=== PATIENT | male | born 1945 | race Caucasian/White ===

== ENCOUNTER 2016-11-15 08:31 | Inpatient (IN) | payer OTHER ==
[~2016-11-15] VITALS: Ht 182.9 cm; Wt 71.7 kg
[~2016-11-15 08:31] MED LIST: ACET325T96 PO; ASPCH81X PO; BACI500O11 TOP; BISA10SU7 PR; GLGKIT IM; HMLI SC; INSDGI SC; IPRASOL4 INH; LPR25 PO; MAGNSUS5 PO; MIRT45TA PO; MULT-411 PO; MUPI1CRE TOP; NTRGSL/4 UT; NUTR1POW PO; PANT40TA PO; PRAV40TA2 PO; PROM25SU28 PR; SODIENE PR; STOMAHESIVE TOP; ZINC1PST TOP
[2016-11-15] MEDS ORDERED: SODIUM CHLORIDE 0.9% 1000ML 1,000 ML IV STA ×3 (08:39→10:13)
[2016-11-15] MEDS ORDERED: PRT/20 PO (08:47)
[2016-11-15] MEDS ORDERED: MOML PO (08:47)
[2016-11-15] MEDS ORDERED: ASCO500T3 PO (08:47)
[2016-11-15] MEDS ORDERED: INSDGI SQ ×2 (08:51→11:08)
[2016-11-15] MEDS ORDERED: INSU100I SQ ×5 (08:51→11:08)
[2016-11-15] MEDS ORDERED: NUTR-1197 PO (08:55)
[2016-11-15] MEDS ORDERED: LPR25 PO (09:01)
[2016-11-15 09:02] LABS: HEMATOCRIT 42.7 % (42-52); MEAN CELL VOLUME 94.7 fL (80-100); MEAN CORPUSCULAR HEMOGLOBIN 31.5 pg (25-34); MEAN CORPUSCULAR HGB CONC 33.3 g/dl (32-36); MEAN PLATELET VOLUME 10.1 fL (7.4-10.4); PLATELET COUNT 462 K/uL (130-400); RED BLOOD COUNT 4.51 M/uL (4.7-6.1); WHITE BLOOD COUNT 19.16 K/uL (4.8-10.8)
[2016-11-15] MEDS ORDERED: ZINC40OI13 TOP (09:03)
[2016-11-15] MEDS ORDERED: PIPERACILLIN/TAZOBACTAM 4.5 GM/100ML D5W IV STA (09:09)
[2016-11-15] MEDS ORDERED: VANCOMYCIN INJ 1,750 MG in SODIUM CHLORIDE 0.9% 250ML 250 ML IV STA (09:09)
--- NOTE | 2016-11-15 09:13 | DIAGNOSTIC IMAGING REPORT ---
CHEST ONE VIEW PORTABLE CLINICAL HISTORY: eval infection dyspnea COMPARISON STUDY: 01/07/2016 FINDINGS: The bones soft tissues and hemidiaphragms are normal. The cardiomediastinal silhouette is normal. The lungs are clear. The pulmonary vasculature is normal. IMPRESSION: Negative chest. Electronically signed by: Albert Bates M.D. 11/15/2016 9:12 AM Dictated Date/Time: 11/15/2016 9:12 AM
[2016-11-15 09:15] LABS: PROTHROMBIN TIME (PATIENT) 10.7 SECONDS (9.0-12.0)
[2016-11-15 09:17] LABS: URINE APPEARANCE CLEAR (CLEAR); URINE BILIRUBIN NEG (NEG); URINE COLOR YELLOW; URINE NITRITE NEG (NEG); URINE SPECIFIC GRAVITY 1.031 (1.000-1.030); UROBILINOGEN NEG (NEG)
[2016-11-15 09:17] LABS: CALCIUM 9.2 mg/dl (8.5-10.1)
--- NOTE | 2016-11-15 09:17 | EMERGENCY ROOM VISIT NOTE ---
History First contact with patient: 08:30 Chief Complaint: HYPERGLYCEMIA Stated Complaint: HYPERGLYCEMIA Nursing Triage Summary: Pt. from [facility]. Called for hyperglycemia, reportedly 559 early this morning. Pt. baseline is confused. [facility] staff gave a total of 19 units of Humalog. History of Present Illness The patient is a 71 year old male who presents to the Emergency Room with complaints of hyperglycemia. Presenting by EMS from when did help. Patient reportedly had a blood sugar of 559 earlier this morning and was given 10 units of Humalog. On recheck his blood sugar was still greater than 400, he was given an additional 9 units of Humalog at 7:30 AM. Per EMS, patient is at his baseline mental status, pleasantly confused, oriented to person only. Patient has no complaints and is unable to contribute to the history due to his dementia. He is chronically incontinent of urine. No reports of recent fevers, but EMS notes that the patient had 2 episodes of vomiting yesterday. No known diarrhea. Review of Systems Limited ROS due to patient's mental status and dementia, see history of present illness. Past Medical/Surgical History Medical Problems: (1) OMA (acute kidney injury) (2) OMA (acute kidney injury) (3) CAD (coronary artery disease) (4) Chronic renal insufficiency (5) CVA (cerebral vascular accident) (6) Dementia (7) Depression (8) DKA (diabetic ketoacidoses) (9) GERD (gastroesophageal reflux disease) (10) HLD (hyperlipidemia) (11) HTN (hypertension) (12) Type 2 diabetes mellitus Social History Smoking Status: Never Smoker Marital Status: single Housing Status: detention Occupation Status: retired Current/Historical Medications Scheduled Ascorbic Acid (Vitamin C), 500 MG PO QAM Aspirin (Aspirin Chewable), 81 MG PO QAM Citalopram Hydrobromide (Celexa), 1 TAB PO DAILY Insulin Glargine (Lantus), 30 UNITS SQ QPM Insulin Lispro (Human) (Humalog), 1 DOSE SQ UD Metoprolol Tartrate (Lopressor), 25 MG PO BID Mirtazapine (Remeron), 1 TAB PO HS Multiple Vitamin (Daily Ruthie), 1 TAB PO DAILY Pantoprazole (Protonix), 20 MG PO QAM Pravastatin Sodium (Pravastatin Sodium), 40 MG PO HS Sodium Phosphate/Biphosphate (Fleet Enema), 1 EA AR UD Zinc Oxide (Topical) (Desitin), 1 APPLN TOP QSHIFT Scheduled PRN Acetaminophen Tab (Tylenol), 650 MG PO TID PRN for Pain Bisacodyl (Bisac-Evac), 10 MG AR UD PRN for Constipation Glucagon (Glucagon Emergency Kit), 1 MG IM UD PRN for HYPOGLYCEMIA PROTOCOL Nitroglycerin (Nitrostat), 0.4 MG UT UD PRN for Chest Pain Allergies Coded Allergies: No Known Allergies (Unverified , 11/15/16) Physical Exam Vital Signs Date Time Temp Pulse Resp B/P (MAP) Pulse Ox O2 Delivery O2 Flow Rate FiO2 11/15/16 10:56 91 17 97 11/15/16 10:51 96 20 97 11/15/16 10:46 98 19 97 11/15/16 10:41 107 19 97 11/15/16 10:40 96 Nasal Cannula 2.0 11/15/16 10:36 121 13 96 11/15/16 10:31 102 25 96 11/15/16 10:26 112 25 97 11/15/16 10:21 105 14 93 11/15/16 10:16 103 18 93 11/15/16 10:11 112 16 98 11/15/16 10:09 96 Nasal Cannula 2.0 11/15/16 10:06 21 94 11/15/16 10:01 129 23 100 11/15/16 09:56 111 21 100 11/15/16 09:51 100 22 79 11/15/16 09:46 104 19 99 11/15/16 09:41 186 18 80 11/15/16 09:36 223 18 83 11/15/16 09:31 126 21 98 11/15/16 09:31 126 21 98 11/15/16 09:29 112/61 11/15/16 09:29 112/61 11/15/16 09:28 102/37 11/15/16 09:28 102/37 11/15/16 09:26 108 21 11/15/16 09:26 108 21 11/15/16 09:21 111 23 11/15/16 09:21 111 23 11/15/16 09:16 111 19 11/15/16 09:16 111 19 11/15/16 09:11 123 18 11/15/16 09:11 123 18 11/15/16 08:56 116 24 11/15/16 08:56 116 24 11/15/16 08:51 128 24 99 11/15/16 08:51 128 24 99 11/15/16 08:46 131 26 97 11/15/16 08:46 131 26 97 11/15/16 08:42 37.1 11/15/16 08:41 116 25 88 11/15/16 08:41 116 25 88 11/15/16 08:39 128 11/15/16 08:35 110/85 11/15/16 08:35 110/85 11/15/16 08:35 37.1 131 18 110/85 89 Room Air Physical Exam CONSTITUTIONAL: No acute distress. Disheveled appearance, dry skin, fruity odor to breath. Alert, oriented times person only. HEENT: Normocephalic, atraumatic. Pupils equal, round and reactive to light, EOMI. TMs normal. Pharynx normal. Copious clear/white nasal drainage matted in facial hair. NECK: Supple, full active range of motion without discomfort. RESPIRATORY: Diminished lung sounds throughout. No wheezes heard. Equal expansion bilaterally. CARDIOVASCULAR: Tachycardic. Regular rhythm with no murmurs, rubs or gallops. Normal peripheral perfusion. No edema. GASTROINTESTINAL: Soft, nontender, nondistended. Bowel sounds present in all quadrants. MUSCULOSKELETAL: Full range of motion of all joints without discomfort. INTEGUMENTARY: No rash or other significant dermatologic conditions noted. NEUROLOGIC: Cranial nerves II-XII grossly intact. No focal neurologic deficits noted. Negative pronator drift. Equal strength in all four extremities. Cooperative and follows commands. Medical Decision & Procedures ER Provider Diagnostic Interpretation: CHEST ONE VIEW PORTABLE CLINICAL HISTORY: eval infection dyspnea COMPARISON STUDY: 01/07/2016 FINDINGS: The bones soft tissues and hemidiaphragms are normal. The cardiomediastinal silhouette is normal. The lungs are clear. The pulmonary vasculature is normal. IMPRESSION: Negative chest. Laboratory Results 11/15/16 08:10 Red Blood Count 4.51, Mean Corpuscular Volume 94.7, Mean Corpuscular Hemoglobin 31.5, Mean Corpuscular Hemoglobin Concent 33.3, Mean Platelet Volume 10.1, Neutrophils (%) (Auto) 89.6, Lymphocytes (%) (Auto) 4.2, Monocytes (%) (Auto) 5.7, Eosinophils (%) (Auto) 0.0, Basophils (%) (Auto) 0.1, Neutrophils # (Auto) 17.18, Lymphocytes # (Auto) 0.80, Monocytes # (Auto) 1.09, Eosinophils # (Auto) 0.00, Basophils # (Auto) 0.02 Test 11/15/16 08:10 11/15/16 09:00 11/15/16 09:09 11/15/16 09:25 White Blood Count 19.16 K/uL (4.8-10.8) Red Blood Count 4.51 M/uL (4.7-6.1) Hemoglobin 14.2 g/dL (14.0-18.0) Hematocrit 42.7 % (42-52) Mean Corpuscular Volume 94.7 fL (80-100) Mean Corpuscular Hemoglobin 31.5 pg (25-34) Mean Corpuscular Hemoglobin Concent 33.3 g/dl (32-36) Platelet Count 462 K/uL (130-400) Mean Platelet Volume 10.1 fL (7.4-10.4) Neutrophils (%) (Auto) 89.6 % Lymphocytes (%) (Auto) 4.2 % Monocytes (%) (Auto) 5.7 % Eosinophils (%) (Auto) 0.0 % Basophils (%) (Auto) 0.1 % Neutrophils # (Auto) 17.18 K/uL (1.4-6.5) Lymphocytes # (Auto) 0.80 K/uL (1.2-3.4) Monocytes # (Auto) 1.09 K/uL (0.11-0.59) Eosinophils # (Auto) 0.00 K/uL (0-0.5) Basophils # (Auto) 0.02 K/uL (0-0.2) RDW Standard Deviation 45.7 fL (36.4-46.3) RDW Coefficient of Variation 13.4 % (11.5-14.5) Immature Granulocyte % (Auto) 0.4 % Immature Granulocyte # (Auto) 0.07 K/uL (0.00-0.02) Prothrombin Time 10.7 SECONDS (9.0-12.0) Prothromb Time International Ratio 1.0 (0.9-1.1) Activated Partial Thromboplast Time 25.9 SECONDS (21.0-31.0) Partial Thromboplastin Ratio 1.0 Total Bilirubin 0.6 mg/dl (0.2-1) Direct Bilirubin < 0.1 mg/dl (0-0.2) Aspartate Amino Transf (AST/SGOT) 8 U/L (15-37) Alanine Aminotransferase (ALT/SGPT) 17 U/L (12-78) Alkaline Phosphatase 124 U/L (45-117) Total Protein 8.6 gm/dl (6.4-8.2) Albumin 3.8 gm/dl (3.4-5.0) Lipase 98 U/L (73-393) Beta-Hydroxybutyric Acid 20.68 mg/dL (0.2-2.81) Urine Color YELLOW Urine Appearance CLEAR (CLEAR) Urine pH 5.0 (4.5-7.5) Urine Specific [place] 1.031 (1.000-1.030) Urine Protein NEG (NEG) Urine Glucose (UA) 3+ (NEG) Urine Ketones 2+ (NEG) Urine Occult Blood NEG (NEG) Urine Nitrite NEG (NEG) Urine Bilirubin NEG (NEG) Urine Urobilinogen NEG (NEG) Urine Leukocyte Esterase NEG (NEG) Bedside Glucose 201 mg/dl (70-99) Venous Blood pH 7.40 (7.36-7.41) Venous Blood Partial Pressure CO2 28 mmHg (38.0-50.0) Venous Blood Partial Pressure O2 35 mmHg Venous Blood HCO3 17 mmol/L Venous Blood Oxygen Saturation 69.7 % Venous Blood Base Excess -6.5 mmol/L Procalcitonin 0.55 ng/ml (0-0.5) Test 11/15/16 09:40 Influenza Type A (RT-PCR) Neg for Influ A (NEG) Influenza Type A Antigen Neg for Influ A (NEG) Influenza Type B Antigen Neg for Influ B (NEG) Influenza Type B (RT-PCR) Neg for Influ B (NEG) Medications Administered Medications (Trade) Dose Ordered Sig/Servando Route Start Time Stop Time Status Last Admin Dose Admin Sodium Chloride 1,000 ml @ 999 mls/hr Q1H1M STAT IV 11/15/16 08:39 11/15/16 09:39 DC 11/15/16 08:39 999 MLS/HR Piperacillin Sod/ Tazobactam Sod (Zosyn Iv) 4.5 gm NOW STAT IV 11/15/16 09:09 11/15/16 09:11 DC 11/15/16 09:57 4.5 GM Vancomycin HCl 1750 mg/Sodium Chloride 535 ml @ 200 mls/hr NOW ONCE IV 11/15/16 09:45 11/15/16 12:25 DC 11/15/16 11:59 200 MLS/HR Sodium Chloride 1,000 ml @ 999 mls/hr Q1H1M STAT IV 11/15/16 09:58 11/15/16 10:58 DC 11/15/16 12:01 999 MLS/HR Insulin Human Regular 2 unit/ Syringe 2 ml @ 1 mls/min TODAY@1100 IV 11/15/16 11:00 11/15/16 11:01 DC 11/15/16 11:10 1 MLS/MIN Dextrose (Dextrose 50% 50ML Syringe) 50 ml UD PRN IV 11/15/16 11:00 12/15/16 10:59 11/15/16 13:40 25 ML ECG Indication: tachycardia Rate (beats per minute): 110 Rhythm: sinus tachycardia Findings: no acute ischemic change, no ectopy Change: no significant change (rate increased by 34 bpm, no other significant changes compared to EKG from 01/09/2016) Medical Decision CC: Patient presenting with complaint of hyperglycemia Interpretation of Labs: Significant leukocytosis with left shift, no anemia, hyperglycemia, no other significant electrolyte abnormalities, low bicarbonate with open of 21, but with normal pH on venous blood gas. Acute kidney injury with creatinine of 1.7, with previous creatinine 0.73, liver enzymes within normal limits. Significant lactic acidosis, improved on subsequent testing after aggressive IV hydration. Differential Diagnosis: Includes, but not limited to hyperglycemia, dehydration , electrolyte abnormality, DKA, HHNS, sepsis, bacteremia, UTI, pneumonia, influenza, viral infection, cellulitis Medication Reconciliation: I attest that I have personally reviewed the patient' s current medication list. Vital signs review: I reviewed the patient's vital signs and interpret them as follows: T: Afebrile; BP: Normotensive; HR: Tachycardic; RR: WNL; Pulse Ox: Initially hypoxic at 89%, improved with stimulation and repositioning, not requiring ongoing oxygen. Blood pressure screening: The patient was found to have normal blood pressure on screening and does not require follow-up for repeat blood pressure check. Summary: Patient was evaluated at bedside, history of physical exam performed. Pt is alert, oriented to person only, which is his reported baseline. He is sleepy but easily aroused, cooperative and in no acute distress. Vitals notable for tachycardia in the 130s-140s initially, as well as hypoxia of 89%. EKG reviewed at bedside, tachycardia with no concerning ischemic changes noted. Patient also noted to have a fruity breath on close examination. Lungs diminished bilaterally. Pressure ulcer noted on buttock area. Orders were placed at bedside for labs, urinalysis, IV fluid bolus 2, urine and blood cultures, EKG, chest x-ray, and broad-spectrum empiric antibiotics to treat for sepsis, presumed respiratory source due to hypoxia. Patient discussed with Dr. Caballero, who agrees with my assessment and plan. Patient reassessed multiple times throughout ED stay, mental status remaining at baseline, improvement in tachycardia after IV fluid bolus. Improved hypoxia , not currently requiring oxygen. Labs reviewed, consistent with DKA and also concerning for sepsis. Significantly elevated lactic acid, leukocytosis, tachycardia--source yet to be determined. Chest x-ray reviewed, no evidence of pneumonia or other infectious etiology. Urinalysis reviewed, positive for glucose and ketones, no signs of UTI. Normal pH on venous blood gas, but labs also revealed low bicarbonate and open gap, with positive serum ketones. Patient discussed with Dr. Ellis, regarding placement of patient in the ICU. He agrees with plans for insulin drip and ICU admission. Impression Primary Impression: DKA (diabetic ketoacidoses) Additional Impressions: OMA (acute kidney injury) Sepsis Critical Care I have personally spent greater than 30 minutes of critical care time in the direct management of this patient. This includes bedside care, interpretation of diagnostic studies, and testing, discussion with consultants, patient, and family members, and other required patient management activities. This 30 minutes is in excess of all separately billable procedures. Departure Information Prescriptions Citalopram Hydrobromide (CELEXA) 10 Mg Tab 1 TAB PO DAILY for 30 Days, #30 TAB 1 Refill Prov: Aj Prescott MD 11/15/16 Mirtazapine (REMERON) 15 Mg Tab 1 TAB PO HS for 30 Days, #30 TAB 1 Refill Prov: Aj Prescott MD 11/15/16 Insulin Lispro (Human) (Humalog) 100 Unit/Ml Inj 1 DOSE SQ UD, #1 14units with breakfast and lunch and 4 units with supper. ZTo hold if eats<10% meals Prov: Aj Prescott MD 11/15/16 Insulin Glargine (Lantus) 100 Unit/Ml Inj 30 UNITS SQ QPM, #1 Prov: Aj Prescott MD 11/15/16 Referrals Genaro Lancaster M.D. (PCP) Patient Instructions [facility] Problem Qualifiers Primary Impression: DKA (diabetic ketoacidoses) Diabetes mellitus type: other specified (including ZENAIDA) Diabetes mellitus complication detail: without coma Qualified Codes: E13.10 - Other specified diabetes mellitus with ketoacidosis without coma Additional Impressions: Sepsis Sepsis type: sepsis due to unspecified organism Qualified Codes: A41.9 - Sepsis, unspecified organism
[2016-11-15 09:18] LABS: ALT/SGPT 17 U/L (12-78); AST/SGOT 8 U/L (15-37); BLOOD UREA NITROGEN 25 mg/dl (7-18); BUN/CREATININE RATIO 14.6 (10-20); CARBON DIOXIDE 14 mmol/L (21-32); CHLORIDE 107 mmol/L (98-107); GLUCOSE 335 mg/dl (70-99); POTASSIUM 3.6 mmol/L (3.5-5.1); SODIUM 142 mmol/L (136-145)
[2016-11-15 09:22] LABS: BASO % 0.1 %; BASO ABS # 0.02 K/uL (0-0.2); COMPLETE YES; IG% 0.4 %; LYMPH % 4.2 %; MONO % 5.7 %; NEUT % 89.6 %
[2016-11-15 09:23] LABS: MANUAL MICROSCOPIC REQUIRED? NO; REVIEW REQ? NO
[2016-11-15 09:27] LABS: ALKALINE PHOSPHATASE 124 U/L (45-117); BETA-HYDROXYBUTYRATE 20.68 mg/dL (0.2-2.81)
[2016-11-15 09:36] LABS: VEN BLD GAS O2 SATURATION 69.7 %; VEN BLOOD GAS BASE EXCESS -6.5 mmol/L
[2016-11-15] MEDS ORDERED: VANCOMYCIN INJ 1,750 MG in SODIUM CHLORIDE 0.9% 500ML 500 ML IV ONE (09:45)
[2016-11-15] MEDS ORDERED: INSULIN IV INFUSION PROTOCOL STA ×2 (10:05→11:00)
[2016-11-15] MEDS ORDERED: DKA GOAL RANGE 150-250 mg/dl 1 EA ONE ×2 (10:15→11:00)
[2016-11-15] MEDS ORDERED: OSELTAMIVIR PHOSPHATE 75 MG CAP PO STA (10:19)
[2016-11-15 10:40] VITALS: O2SAT 96; BMI 21.4
[2016-11-15] MEDS ORDERED: GLUCAGON FOR INJ 1 MG VIAL SQ PRN (11:00)
[2016-11-15] MEDS ORDERED: BISACODYL 10 MG SUPP PR PRN (11:00)
[2016-11-15] MEDS ORDERED: GLUCOSE 10 TABS/TUBE PO PRN (11:00)
[2016-11-15] MEDS ORDERED: LORAZEPAM 0.5 MG TAB PO PRN (11:00)
[2016-11-15] MEDS ORDERED: SODIUM CHLORIDE 0.9% 1000ML 1,000 ML IV SCH (11:00)
[2016-11-15] MEDS ORDERED: NITROGLYCERIN 0.4 MG SL PER TAB CHARGE SL PRN (11:00)
[2016-11-15] MEDS ORDERED: MoRPHine SULFATE 2 MG/ML CARP IV PRN (11:00)
[2016-11-15] MEDS ORDERED: PENDING D5 1/2NS+20mEq KCL IVF SCH (11:00)
[2016-11-15] MEDS ORDERED: SOD PHOSPHATE/SOD BIPHOSPHATE ENEMA 132 ML BTL PR PRN (11:00)
[2016-11-15] MEDS ORDERED: DC ALL PREVIOUSLY ORDERED DIABETES MEDS ONE (11:00)
[2016-11-15] MEDS ORDERED: INSULIN HUMAN REGULAR IV BOLUS 2 UNIT in SYRINGE 0 ML IV SCH (11:00)
[2016-11-15] MEDS ORDERED: MODERATE STRESS LEVEL ONE (11:00)
[2016-11-15] MEDS ORDERED: PHARMACY GLYCEMIC MGMT CONSULT PRN (11:00)
[2016-11-15] MEDS ORDERED: DEXTROSE 50% 50 ML SYR IV PRN (11:00)
[2016-11-15] MEDS ORDERED: PENDING NSS+20mEq KCL IVF SCH (11:00)
[2016-11-15] MEDS ORDERED: GLUCOSE 40% GEL 15 GM TUBE PO PRN (11:00)
[2016-11-15] MEDS ORDERED: NITROGLYCERIN 0.4 MG SL PER TAB CHARGE UT PRN (11:00)
[2016-11-15] MEDS ORDERED: MIRT15TA3 PO (11:09)
[2016-11-15] MEDS ORDERED: CITA10TA8 PO (11:09)
[2016-11-15] MEDS ORDERED: INSULIN REGULAR 250 UNITS in SODIUM CHLORIDE 0.9% 250ML 250 ML IV SCH (11:30)
[2016-11-15] MEDS ORDERED: PIPERACILL/TAZOBAC CONSULT ACTIVE PRN (11:45)
[2016-11-15] MEDS ORDERED: VANCOMYCIN CONSULT ACTIVE PRN (11:45)
[2016-11-15 11:53] LABS: INFLUENZA A PCR Neg for Influ A (NEG); INFLUENZA B PCR Neg for Influ B (NEG)
--- NOTE | 2016-11-15 12:40 | HISTORY & PHYSICAL EXAMINATION ---
DATE OF ADMISSION: 11/15/2016 CHIEF COMPLAINT: DKA. HISTORY OF PRESENT ILLNESS: This 71-year-old male with past medical history significant for CVA, diabetes, hyperlipidemia, GERD, hypertension, decubitus ulcers, CAD, nutritional anemia, major depression, cataracts, peripheral vascular disease, history of major depression, cataracts, peripheral vascular disease, macular degeneration, dementia, presents with DKA. The patient is a [facility] patient. Sugars were running very high and patient seemed to be a little confused from his baseline and was transferred to ER. Initially was thought to have some hypoxia, but his oxygen saturation improved. His mental status is back to baseline. He always has some runny nose but thought it was some what more than usual and possible some flu-like symptoms but right now patient is resting comfortably and denies any pain, denies any shortness of breath, has chronic cough, no chest pain, no nausea. The patient's sister is the power of low pressure boiler tender. The patient is oriented to name only. Could not get much history from the patient as patient has dementia.. As per sister, the patient had this episode of hyperglycemia in the past. He has healed heel ulcers and he has stage II decubitus ulcer in the back. He is incontinent of both urine and stools. No recent fevers, chills. Appetite is very poor. Since last year he is mostly bedbound, not mobile. He is hemodynamically stable in the ER, but his lactic acid is elevated at 8.3 and his hydroxybutyrate acid was 20.6. The patient also blind in the left eye and also right eye vision is not good . ALLERGIES: No known drug allergies. PAST MEDICAL HISTORY: As mentioned above. PAST SURGICAL HISTORY: Has tonsillectomy and adenoidectomy. MEDICATIONS: The patient is on Lantus 30 units at bedtime, insulin Lantus 30 units with supper r, Remeron 50 mg p.o. at bedtime, Protonix 20 mg p.o. daily, citalopram 10 mg p.o. daily, Tylenol 650 mg p.o. t.i.d., ascorbic acid 500 mg p.o. daily, metoprolol 25 mg p.o. b.i.d., Nitrostat 0.4 mg p.r.n., aspirin 81 mg p.o. daily, pravastatin 40 mg p.o. daily, multivitamins 1 tablet p.o. daily. FAMILY HISTORY: Significant for mother had melanoma, diabetes. Father had stroke, heart disorder and diabetes. SOCIAL HISTORY: Single, never smoked. Alcohol occasional. No drug use. Currently lives in [facility]. REVIEW OF SYMPTOMS: Unobtainable as the patient has dementia. PHYSICAL EXAMINATION: GENERAL: The patient is of moderate built, not in distress. VITAL SIGNS: Temperature 37.1, pulse in 110s, respiratory rate 21, blood pressure 112/61, oxygen 96% on 2 liters. HEAD, EYES, EARS, NOSE, AND THROAT: Blind in the left eye, minimal vision right eye. Pupils equal, round, and react to light. No icterus, no pallor. NECK: No JVD, no neck masses, no carotid bruits. CARDIOVASCULAR: S1, S2 heard. Tachycardia. Irregular. No murmurs. RESPIRATORY SYSTEM: Normal effort. No accessory muscle use. No wheezing, no crackles. ABDOMEN: Soft, bowel sounds present. Nontender. No distention. CENTRAL NERVOUS SYSTEM: Alert and oriented x1. Moves his extremities. Obeys simple commands. SKIN: He has 2 sacral stage II decubitus ulcers . Healed bilateral heel ulcers. EXTREMITIES: No edema, no erythema. LABORATORY DATA: Sodium 142, potassium 3.6, chloride 107, bicarbonate 14, BUN 25, creatinine 1.7, serum glucose 335. Lactic acid 3.3, calcium 9.2, total bilirubin 0.6, direct bilirubin less than 0.1, AST 18, ALT 17, alkaline phosphorus 124, hydroxybutyrate acid 20.6. WBC 19, hemoglobin 14.2, hematocrit 42.7, platelets 462. PT 10.7, INR 1, PTT 25.9. Urinalysis positive for ketones. Influenza A and B antigen screen negative. ABGs Venous blood gas: pH 7.4, pCO2 28, pO2 35, bicarbonate 17, oxygen saturation 16.7%. Chest x-ray: No acute process seen. EKG: Sinus tachycardia at a rate of 110. No acute ST changes seen. ASSESSMENT AND PLAN: This is a 71-year-old male who presents with diabetic ketoacidosis. 1. Diabetic ketoacidosis. No instigating factors identified but we will follow the cultures. Follow the cardiac enzymes. Place him on IV insulin, DKA protocol with aggressive IV fluids as per protocol. Frequent lab checks as per protocol. Follow hemoglobin A1c levels in the a.m. Consult pharmacy to help with glycemic management. Close monitor in the ICU. Applications Engineer on board . 2.Metabolic acidosis, elevated lactic acidosis most likely secondary to diabetic ketoacidosis. Management as above. We will also place him empirically on antibiotics, IV Zosyn and vancomycin. Follow the urine and blood cultures. 3. History of coronary artery. Continue aspirin, beta kenton and statin. Currently seems to be stable. 4. History of hyperlipidemia. Continue statin. 5. History of decubitus ulcers. , antibiotics as above. Wound consult 6. Peripheral vascular disease on aspirin. 7. Depression on Remeron and Celexa. 8. Gastroesophageal reflux disease on PPI. 9. History of dementia. Will monitor for delirium. 10. Hypertension on Lopressor. We will follow the blood pressure. 11. History of cerebrovascular accident on aspirin and statin. Blood pressure control. 12. Deep venous thrombosis prophylaxis. SCDs and heparin subcutaneous. DISPOSITION: Close monitor in ICU. CODE STATUS DNR. MTDD
[2016-11-15] MEDS ORDERED: INSULIN ASPART 100 UNITS/ML 3 ML PEN SC SCH ×2 (13:00)
[2016-11-15] MEDS ORDERED: SODIUM CHLORIDE 0.9% 1000ML 1,000 ML IV ONE (13:15)
[2016-11-15] MEDS ORDERED: D5W AND 1/4NSS + 20MEQ KCL 1,000 ML IV SCH (13:15)
[2016-11-15 13:16] VITALS: BP 138/76; PULSE 106
[2016-11-15] MEDS ORDERED: D5W AND 1/2NSS + 20MEQ KCL 1000 ML IV SCH (13:30)
[2016-11-15 14:00] VITALS: BP 97/58; PULSE 88; O2SAT 97
[2016-11-15 14:12] LABS: BUN/CREATININE RATIO 18.3 (10-20); CALCIUM 9.1 mg/dl (8.5-10.1); CREATININE 1.1 mg/dl (0.60-1.40); MAGNESIUM 1.9 mg/dl (1.8-2.4); PHOSPHORUS 1.9 mg/dl (2.5-4.9); POTASSIUM 3.6 mmol/L (3.5-5.1)
--- NOTE | 2016-11-15 14:57 | Critical Care Consultation ---
Critical Care Consultation Date of Consultation: Nov 15, 2016. Attending Physician: Aj Prescott MD Reason for Consultation: DKA, elevated lactate History of Present Illness This is a 71 yo m that has presented to us with ALOC, elevated lactate and mild DKA. He is originally from [facility] and has lived there for approximately 2 years to be closer to his POA, his sister, which lives in this area. He has a history of insulin dependent DM and since his sugars were elevated and increased confusion he was sent to the ED for further evaluation. Upon arrival to the ED the patient was tremulous, hypoxic and tachycardic. Initial labs were reflective of a mild DKA and an infectious process. Sepsis protocol was followed and patient received 30 cc/kg of NSS and insulin infusion was initiated. Upon arrival to the ICU the hypoxia had resolved and there was rapid correction of his BSG. He still has an altered mentation and is only oriented to self. He is however able to state who his sister is, spell WORLD backwards and name items. The patient was admitted for a episode similar to this approx a year prior. He was treated as a septic picture with mild DKA however no source of infection was noted. He does have a significant history of CVA , CAD, depression and macular degeneration. He does also have a history of nutritional anemia as he has " lost his taste" so he does have to be encouraged to eat. He requires a wheelchair and a lift for assistance and he does have a stage IV decubital ulceration and stage II on bilat heels. The sister states that the patient is basically incontinent of stool and urine. 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 Past Medical/Surgical History CVA DMII Hyperlipidemia HTN GERD CAD Nutritional anemia Depression Cataracts Macular degeneration Dementia Social History Smoking Status: Former Smoker Smokeless Tobacco Use: No Alcohol Use: none Drug Use: none Marital Status: single Housing Status: snf Occupation Status: retired Allergies Coded Allergies: No Known Allergies (Unverified , 11/15/16) Home Medications Scheduled Ascorbic Acid (Vitamin C), 500 MG PO QAM Aspirin (Aspirin Chewable), 81 MG PO QAM Citalopram Hydrobromide (Celexa), 1 TAB PO DAILY Insulin Glargine (Lantus), 30 UNITS SQ QPM Insulin Lispro (Human) (Humalog), 1 DOSE SQ UD Metoprolol Tartrate (Lopressor), 25 MG PO BID Mirtazapine (Remeron), 1 TAB PO HS Multiple Vitamin (Daily Ruthie), 1 TAB PO DAILY Pantoprazole (Protonix), 20 MG PO QAM Pravastatin Sodium (Pravastatin Sodium), 40 MG PO HS Sodium Phosphate/Biphosphate (Fleet Enema), 1 EA OH UD Zinc Oxide (Topical) (Desitin), 1 APPLN TOP QSHIFT Scheduled PRN Acetaminophen Tab (Tylenol), 650 MG PO TID PRN for Pain Bisacodyl (Bisac-Evac), 10 MG OH UD PRN for Constipation Glucagon (Glucagon Emergency Kit), 1 MG IM UD PRN for HYPOGLYCEMIA PROTOCOL Nitroglycerin (Nitrostat), 0.4 MG UT UD PRN for Chest Pain Current Inpatient Medications Current Inpatient Medications Medications (Trade) Dose Ordered Sig/Servando Route Start Time Stop Time Status Last Admin Dose Admin Insulin Human Regular 250 units/ Sodium Chloride 252.5 ml @ 0 mls/hr DAILY@1130 IV 11/15/16 11:30 11/16/16 11:29 11/15/16 11:13 1.8 MLS/HR Insulin Aspart (novoLOG ASPART) SLIDING SCALE PCHS SC 11/15/16 13:00 12/15/16 12:59 Glucose (Glucose 40% Gel) UD PRN PO 11/15/16 11:00 12/15/16 10:59 Glucose (Glucose Chew Tab) 1 tabs UD PRN PO 11/15/16 11:00 12/15/16 10:59 Dextrose (Dextrose 50% 50ML Syringe) 50 ml UD PRN IV 11/15/16 11:00 12/15/16 10:59 11/15/16 13:40 25 ML Glucagon (Glucagon Inj) 1 mg UD PRN SQ 11/15/16 11:00 12/15/16 10:59 Heparin Sodium (Porcine) (Heparin Sq 5000 Unit/0.5ml) 5,000 unit Q12H SQ 11/15/16 21:00 12/15/16 20:59 Lorazepam (Ativan Tab) 0.5 mg Q4H PRN PO 11/15/16 11:00 12/15/16 10:59 Pantoprazole Sodium 40 mg/ Syringe 10 ml @ 5 mls/min DAILY@1100 IV 11/16/16 11:00 12/16/16 10:59 Morphine Sulfate (MoRPHine SULFATE INJ) 2 mg Q2H PRN IV 11/15/16 11:00 11/29/16 10:59 Aspirin (Ecotrin Tab) 81 mg QAM PO 11/16/16 09:00 12/16/16 08:59 Bisacodyl (Dulcolax Supp) 10 mg UD PRN OH 11/15/16 11:00 12/15/16 10:59 Metoprolol Tartrate (Lopressor Tab) 25 mg BID PO 11/15/16 21:00 12/15/16 20:59 Multivitamins (Multivitamin Tab) 1 tab DAILY PO 11/16/16 09:00 12/16/16 08:59 Nitroglycerin (Nitrostat Tab) 0.4 mg UD PRN UT 11/15/16 11:00 12/15/16 10:59 Pravastatin Sodium (Pravachol Tab) 40 mg HS PO 11/15/16 21:00 12/15/16 20:59 Sodium Biphosphate/ Sodium Phosphate (Fleet Enema) 30 ml UD PRN OH 11/15/16 11:00 12/15/16 10:59 UNV Multi-Ingredient Ointment (Desitin Oint) QS EXT 11/15/16 16:00 12/15/16 15:59 Miscellaneous Information (Consult Glycemic Management Pharmacy) 1 ea UD PRN N/A 11/15/16 11:00 12/15/16 10:59 Vancomycin HCl 1000 mg/Sodium Chloride 270 ml @ 125 mls/hr Q12 IV 11/15/16 11:15 11/17/16 11:14 UNV Piperacillin Sod/ Tazobactam Sod 3.375 gm/Dextrose 115 ml @ 28.75 mls/ hr Q8H IV 11/15/16 16:00 11/17/16 15:59 Citalopram Hydrobromide (celeXA TAB) 10 mg DAILY PO 11/16/16 09:00 12/16/16 08:59 Mirtazapine (Remeron Tab) 15 mg HS PO 11/15/16 21:00 12/15/16 20:59 Vancomycin HCl (Consult) 1 ea UD PRN N/A 11/15/16 11:45 12/15/16 11:44 Piperacillin Sod/ Tazobactam Sod (Consult) 1 ea UD PRN N/A 11/15/16 11:45 12/15/16 11:44 Potassium Chloride/Dextrose/ Sod Cl 1,000 ml @ 150 mls/hr Q6H40M IV 11/15/16 13:30 12/15/16 13:29 Review of Systems Unable to complete secondary to confusion Physical Exam Date Time Temp Pulse Resp B/P (MAP) Pulse Ox O2 Delivery O2 Flow Rate FiO2 11/15/16 12:41 103 17 98 11/15/16 12:36 99 18 99 11/15/16 12:31 96 17 99 11/15/16 12:26 96 12 99 11/15/16 12:21 114 21 98 11/15/16 12:16 96 20 99 11/15/16 12:11 114 21 99 11/15/16 12:06 93 15 100 11/15/16 12:02 119/72 11/15/16 12:01 94 17 100 11/15/16 11:57 97/63 11/15/16 11:56 95 15 100 11/15/16 11:51 93 19 100 11/15/16 11:46 89 21 100 11/15/16 11:41 90 16 100 11/15/16 11:36 101 17 100 11/15/16 11:31 92 16 100 11/15/16 11:26 100 19 96 11/15/16 11:22 108 11/15/16 11:21 107 23 99 11/15/16 11:16 94 16 99 11/15/16 11:11 98 20 99 11/15/16 11:06 111 19 99 11/15/16 11:01 104 25 11/15/16 10:56 91 17 97 11/15/16 10:51 96 20 97 11/15/16 10:46 98 19 97 11/15/16 10:41 107 19 97 11/15/16 10:40 96 Nasal Cannula 2.0 11/15/16 10:36 121 13 96 11/15/16 10:31 102 25 96 11/15/16 10:26 112 25 97 11/15/16 10:21 105 14 93 11/15/16 10:16 103 18 93 11/15/16 10:11 112 16 98 11/15/16 10:09 96 Nasal Cannula 2.0 11/15/16 10:06 21 94 11/15/16 10:01 129 23 100 11/15/16 09:56 111 21 100 11/15/16 09:51 100 22 79 11/15/16 09:46 104 19 99 11/15/16 09:41 186 18 80 11/15/16 09:36 223 18 83 11/15/16 09:31 126 21 98 11/15/16 09:31 126 21 98 11/15/16 09:29 112/61 11/15/16 09:29 112/61 11/15/16 09:28 102/37 11/15/16 09:28 102/37 11/15/16 09:26 108 21 11/15/16 09:26 108 21 11/15/16 09:21 111 23 11/15/16 09:21 111 23 11/15/16 09:16 111 19 11/15/16 09:16 111 19 11/15/16 09:11 123 18 11/15/16 09:11 123 18 11/15/16 08:56 116 24 11/15/16 08:56 116 24 11/15/16 08:51 128 24 99 11/15/16 08:51 128 24 99 11/15/16 08:46 131 26 97 11/15/16 08:46 131 26 97 11/15/16 08:42 37.1 11/15/16 08:41 116 25 88 11/15/16 08:41 116 25 88 11/15/16 08:39 128 11/15/16 08:35 110/85 11/15/16 08:35 110/85 11/15/16 08:35 37.1 131 18 110/85 89 Room Air General Appearance: no apparent distress, other (uncomfortable when shifting patient in bed) Eyes: PERRLA, other (left eye's gaze is out to the temporal side, hazy lens bilat,drooping left eyelid- all BL for patient) ENT: normal ear exam Neck: normal range of motion Respiratory: no respiratory distress, other (decreased to bilat bases, poor movement however patient was no cooperative) Cardiovasular: regular rate/rhythm, normal S1S2, no murmur Abdomen: non tender, normal bowel sounds, no rebound, no guarding Back: normal inspection Upper Extremities: no edema Lower Extremities: no edema, other (ulceration noted on bilat heels) Pulses: carotid (R) (2+), carotid (L) (2+), dorsalis pedis (R) (1+), dorsalis pedis (L) (1+) Neuro: alert, other (oriented to self) Psychiatric: flat affect Laboratory Results Last 24 Hours Test 11/15/16 08:10 11/15/16 09:00 11/15/16 09:09 11/15/16 09:25 White Blood Count 19.16 K/uL Red Blood Count 4.51 M/uL Hemoglobin 14.2 g/dL Hematocrit 42.7 % Mean Corpuscular Volume 94.7 fL Mean Corpuscular Hemoglobin 31.5 pg Mean Corpuscular Hemoglobin Concent 33.3 g/dl Platelet Count 462 K/uL Mean Platelet Volume 10.1 fL Neutrophils (%) (Auto) 89.6 % Lymphocytes (%) (Auto) 4.2 % Monocytes (%) (Auto) 5.7 % Eosinophils (%) (Auto) 0.0 % Basophils (%) (Auto) 0.1 % Neutrophils # (Auto) 17.18 K/uL Lymphocytes # (Auto) 0.80 K/uL Monocytes # (Auto) 1.09 K/uL Eosinophils # (Auto) 0.00 K/uL Basophils # (Auto) 0.02 K/uL RDW Standard Deviation 45.7 fL RDW Coefficient of Variation 13.4 % Immature Granulocyte % (Auto) 0.4 % Immature Granulocyte # (Auto) 0.07 K/uL Prothrombin Time 10.7 SECONDS Prothromb Time International Ratio 1.0 Activated Partial Thromboplast Time 25.9 SECONDS Partial Thromboplastin Ratio 1.0 Sodium Level 142 mmol/L Potassium Level 3.6 mmol/L Chloride Level 107 mmol/L Carbon Dioxide Level 14 mmol/L Anion Gap 21.0 mmol/L Blood Urea Nitrogen 25 mg/dl Creatinine 1.70 mg/dl Est Creatinine Clear Calc Drug Dose 41.0 ml/min Estimated GFR () 46.3 Estimated GFR (Non- 40.0 BUN/Creatinine Ratio 14.6 Random Glucose 335 mg/dl Calcium Level 9.2 mg/dl Total Bilirubin 0.6 mg/dl Direct Bilirubin < 0.1 mg/dl Aspartate Amino Transf (AST/SGOT) 8 U/L Alanine Aminotransferase (ALT/SGPT) 17 U/L Alkaline Phosphatase 124 U/L Total Protein 8.6 gm/dl Albumin 3.8 gm/dl Lipase 98 U/L Beta-Hydroxybutyric Acid 20.68 mg/dL Urine Color YELLOW Urine Appearance CLEAR Urine pH 5.0 Urine Specific [place] 1.031 Urine Protein NEG Urine Glucose (UA) 3+ Urine Ketones 2+ Urine Occult Blood NEG Urine Nitrite NEG Urine Bilirubin NEG Urine Urobilinogen NEG Urine Leukocyte Esterase NEG Bedside Glucose 201 mg/dl Venous Blood pH 7.40 Venous Blood Partial Pressure CO2 28 mmHg Venous Blood Partial Pressure O2 35 mmHg Venous Blood HCO3 17 mmol/L Venous Blood Oxygen Saturation 69.7 % Venous Blood Base Excess -6.5 mmol/L Lactic Acid Level 8.3 mmol/L Procalcitonin 0.55 ng/ml Test 11/15/16 09:40 11/15/16 13:20 Influenza Type A (RT-PCR) Neg for Influ A Influenza Type A Antigen Neg for Influ A Influenza Type B Antigen Neg for Influ B Influenza Type B (RT-PCR) Neg for Influ B Sodium Level 144 mmol/L Potassium Level 3.6 mmol/L Chloride Level 112 mmol/L Carbon Dioxide Level 20 mmol/L Anion Gap 12.0 mmol/L Blood Urea Nitrogen 20 mg/dl Creatinine 1.10 mg/dl Est Creatinine Clear Calc Drug Dose 63.4 ml/min Estimated GFR () 78.4 Estimated GFR (Non- 67.7 BUN/Creatinine Ratio 18.3 Random Glucose 58 mg/dl Lactic Acid Level 2.7 mmol/L Calcium Level 9.1 mg/dl Phosphorus Level 1.9 mg/dl Magnesium Level 1.9 mg/dl Assessment & Plan 1. SIRS criteria ( elevated WBC, tachy, elevated lactate) - possibly sepsis vs dehydration (element of depression?) 2. Metabolic encephalopathy; multifactorial; infectious, DKA, h/o CVA, dehydration 3. Mild diabetic ketoacidosis with improving AG 4. OMA secondary to dehydration 5. Elevated WBC- potential infectious source includes lungs vs ulcerations 6. Hyperlipidemia/ CAD 7. HTN 8. H/O CVA NVS - continue to assess mentation, reorient accordingly CVS - Continue to monitor on tele, tachy has improved and bp stable - continue the ASA 81 mg - continue Metoprolol 25 mg and Pravastatin 40 mg - Previous Echo in 2016 - EF 60-65% - chronic mod hypokinesis of the mid/ apical aspects of the anteroseptal region - QTc 457 RESP - O2 per nursing protocol GI - Currently NPO except meds - Monitor I&O - OMA has since resolved ENDO - patient had a rapid drop in glucose after insulin drip initiated - insulin infusion has been held and should be transitioned to ISS and lantus once patient is tolerating PO - AG has improved to 12 HEME - trend CBC for leukocytosis ID - patient has been placed on Zosyn and Vanco - Procalcitonin 0.55 and lactate has improved from > 8 to 2.7 - favouring a dehydration/ DKA picture however will cover with abx considering his ulcerations - wound consult for ulcerations DVT Prophylaxis - heparin q 12h Resident Physician Supervision Note: Dr. Arthur was resident physician during care of patient. I separately evaluated patient and did history and exam. I discussed the case with the resident and generally agree with the findings and plan. Patient alert oriented, history of dementia, however able to spell world backwards. Expresses his desire that he does not want heroic measures including intubation or CPR in event of cardiac arrest. Patient initially found to have highly elevated lactic acid which significantly improved status post fluid administration, was started on insulin infusion for elevated blood sugars which critically improved necessitating stopping of the insulin infusion and his anion gap closed. Patient has a minimally elevated procalcitonin, the chest x-ray was normal and his UA was unremarkable, the patient denied abdominal pain. I doubt that this is sepsis accordingly I we will discontinue antibiotics at this time. This is very similar to his last presentation which did not appear to have an infectious etiology to his hyperglycemia. I suspect that there is a component of refusing insulin from time to time. At this point he is stable for downgraded out of the ICU. I have personally spent 40 minutes of critical care time in the direct management of this patient. This is a life/limb threatening event. This includes time spent evaluating patient, direct bedside care, chart review, placing orders, interpretation of diagnostic studies, discussion with consultants, patient, and family members, as well as other required patient management activities. This time is exclusive of all separately billable procedures, and teaching time and separate from and in addition to any other critical care service time. Documented By: Blair Shippert, DO Additional Copies To Genaro Lancaster M.D.
[2016-11-15 15:00] VITALS: BP 105/62; PULSE 85; O2SAT 99
--- NOTE | 2016-11-15 15:41 | Pharmacy Progress Note ---
Pharmacy Abx Initial Consult Date of Service Nov 15, 2016. Pharmacy Dosing Scope Date of Consult: 11/15/16 Consultation requested by: Dr. Prescott Pharmacy is consulted to initiate IV VANCOMYCIN and ZOSYN therapy, order appropriate labs and adjust drug dose/frequency. Subjective The patient is a 71 year old male admitted on Nov 15, 2016 at 11:00 for DKA, possibly precipitated by infection Objective Height (Feet): 6 Height (Inches): 0.00 Weight (Kilograms): 71.700 Vital Signs (Past 12Hrs) Vital Signs Past 12 Hours Date Time Temp Pulse Resp B/P (MAP) Pulse Ox O2 Delivery O2 Flow Rate FiO2 11/15/16 15:00 85 14 105/62 (76) 99 Room Air 11/15/16 14:00 88 14 97/58 (71) 97 Room Air 11/15/16 13:30 Room Air 11/15/16 13:16 106 19 138/76 (96) 11/15/16 12:41 103 17 98 11/15/16 12:36 99 18 99 11/15/16 12:31 96 17 99 11/15/16 12:26 96 12 99 11/15/16 12:21 114 21 98 11/15/16 12:16 96 20 99 11/15/16 12:11 114 21 99 11/15/16 12:06 93 15 100 11/15/16 12:02 119/72 11/15/16 12:01 94 17 100 11/15/16 11:57 97/63 11/15/16 11:56 95 15 100 11/15/16 11:51 93 19 100 11/15/16 11:46 89 21 100 11/15/16 11:41 90 16 100 11/15/16 11:36 101 17 100 11/15/16 11:31 92 16 100 11/15/16 11:26 100 19 96 11/15/16 11:22 108 11/15/16 11:21 107 23 99 11/15/16 11:16 94 16 99 11/15/16 11:11 98 20 99 11/15/16 11:06 111 19 99 11/15/16 11:01 104 25 11/15/16 10:56 91 17 97 11/15/16 10:51 96 20 97 11/15/16 10:46 98 19 97 11/15/16 10:41 107 19 97 11/15/16 10:40 96 Nasal Cannula 2.0 11/15/16 10:36 121 13 96 11/15/16 10:31 102 25 96 11/15/16 10:26 112 25 97 11/15/16 10:21 105 14 93 11/15/16 10:16 103 18 93 11/15/16 10:11 112 16 98 11/15/16 10:09 96 Nasal Cannula 2.0 11/15/16 10:06 21 94 11/15/16 10:01 129 23 100 11/15/16 09:56 111 21 100 11/15/16 09:51 100 22 79 11/15/16 09:46 104 19 99 11/15/16 09:41 186 18 80 11/15/16 09:36 223 18 83 11/15/16 09:31 126 21 98 11/15/16 09:31 126 21 98 11/15/16 09:29 112/61 11/15/16 09:29 112/61 11/15/16 09:28 102/37 11/15/16 09:28 102/37 11/15/16 09:26 108 21 11/15/16 09:26 108 21 11/15/16 09:21 111 23 11/15/16 09:21 111 23 11/15/16 09:16 111 19 11/15/16 09:16 111 19 11/15/16 09:11 123 18 11/15/16 09:11 123 18 11/15/16 08:56 116 24 11/15/16 08:56 116 24 11/15/16 08:51 128 24 99 11/15/16 08:51 128 24 99 11/15/16 08:46 131 26 97 11/15/16 08:46 131 26 97 11/15/16 08:42 37.1 11/15/16 08:41 116 25 88 11/15/16 08:41 116 25 88 11/15/16 08:39 128 11/15/16 08:35 110/85 11/15/16 08:35 110/85 11/15/16 08:35 37.1 131 18 110/85 89 Room Air Lab Results (24Hrs) Laboratory Tests (24 Hours) Test 11/15/16 08:10 11/15/16 09:25 11/15/16 13:20 White Blood Count 19.16 K/uL (4.8-10.8) H Red Blood Count 4.51 M/uL (4.7-6.1) L Hemoglobin 14.2 g/dL (14.0-18.0) Hematocrit 42.7 % (42-52) Mean Corpuscular Volume 94.7 fL (80-100) Mean Corpuscular Hemoglobin 31.5 pg (25-34) Mean Corpuscular Hemoglobin Concent 33.3 g/dl (32-36) Platelet Count 462 K/uL (130-400) H Mean Platelet Volume 10.1 fL (7.4-10.4) Neutrophils (%) (Auto) 89.6 % Lymphocytes (%) (Auto) 4.2 % Monocytes (%) (Auto) 5.7 % Eosinophils (%) (Auto) 0.0 % Basophils (%) (Auto) 0.1 % Neutrophils # (Auto) 17.18 K/uL (1.4-6.5) H Lymphocytes # (Auto) 0.80 K/uL (1.2-3.4) L Monocytes # (Auto) 1.09 K/uL (0.11-0.59) H Eosinophils # (Auto) 0.00 K/uL (0-0.5) Basophils # (Auto) 0.02 K/uL (0-0.2) Procalcitonin 0.55 ng/ml (0-0.5) H Lactic Acid Level 2.7 mmol/L (0.4-2.0) *H Micro Results Date/Time Source Procedure Growth Status 11/15/16 09:25 Blood Blood Culture Pending Received 11/15/16 09:20 Blood Blood Culture Pending Received 11/15/16 09:00 Urine,Catheterized Urine Culture Pending Received Risk Factors for Resistance * Resident in a chcf or extended-care facility ([facility]) Assessment & Plan Assessment 71 year old male admitted w/ DKA. Empiric abx therapy initiated for possible infection as a precipitant of DKA. Plan Vancomycin IV * Loading dose: 1750 mg (24.4 mg/kg) * Maintenance dose: 1100 mg IV (15.3 mg/kg) every 16 hours * Goal trough level for unknown source : 15 to 20 mcg/mL * Trough level ordered for 11/17/16 if therapy to continue past 48 hrs Piperacillin/tazobactam * 4.5 g bolus administered over 30 minutes, then 3.375 g IV extended infusion every 8 hours for CrCl greater than 20 mL/min OR every 12 hours for CrCl 20 mL/ min or less and dialysis. Pharmacy will continue to follow and will adjust dose/frequency as necessary. Thank you.
[2016-11-15] MEDS: PIPERACILL/TAZOBAC IV 3.375 GM in DEXTROSE 5% 100ML 100 ML IV SCH (15:46)
--- NOTE | 2016-11-15 15:55 | Pharmacy Progress Note ---
Glycemic Control Intl Consult Date of Service Nov 15, 2016. Scope Glycemic Pharmacist consulted by Dr Prescott on 11/15/16 for glycemic control and to write orders per [facility] inpatient glycemic control protocol/ Objective Weight (Kilograms): 71.700 Accuchecks BSG (last 24hrs): Test 11/15/16 08:10 11/15/16 09:09 11/15/16 13:20 Random Glucose 335 mg/dl (70-99) 58 mg/dl (70-99) Bedside Glucose 201 mg/dl (70-99) Laboratory Data (last 24hrs) Test 11/15/16 08:10 11/15/16 13:20 Anion Gap 21.0 mmol/L 12.0 mmol/L BUN/Creatinine Ratio 14.6 18.3 Blood Urea Nitrogen 25 mg/dl 20 mg/dl Creatinine 1.70 mg/dl 1.10 mg/dl Potassium Level 3.6 mmol/L 3.6 mmol/L Sodium Level 142 mmol/L 144 mmol/L White Blood Count 19.16 K/uL Red Blood Count 4.51 M/uL Hemoglobin 14.2 g/dL Hematocrit 42.7 % Mean Corpuscular Volume 94.7 fL Mean Corpuscular Hemoglobin 31.5 pg Mean Corpuscular Hemoglobin Concent 33.3 g/dl Platelet Count 462 K/uL Mean Platelet Volume 10.1 fL Neutrophils (%) (Auto) 89.6 % Lymphocytes (%) (Auto) 4.2 % Monocytes (%) (Auto) 5.7 % Eosinophils (%) (Auto) 0.0 % Basophils (%) (Auto) 0.1 % Neutrophils # (Auto) 17.18 K/uL Lymphocytes # (Auto) 0.80 K/uL Monocytes # (Auto) 1.09 K/uL Eosinophils # (Auto) 0.00 K/uL Basophils # (Auto) 0.02 K/uL Recent Pertinent Medications Outpatient Anti-diabetic Regimen: * Lantus 30 units Q PM * Humalog 14 units w/ breakfast + 14 units w/ lunch + 4 units w/ dinner * A1c = ? % The patient is currently receiving: * IV insulin infusion; goal range 130-200 Risk Factors for Insulin Resistance: * Infection: receiving empiric abx coverage: vancomycin + zosyn * IVF: NS changed to D51/2NS + 20mEq KCl @ 150cc/hr * Diet: NPO Assessment & Plan ASSESSMENT: * 71 yo male admitted from [facility] w/ hyperglycemia, MS changes, DKA, possible infxn * Labs on admission: Glu 335, AG 21, Bicarb 14, BOHB 20.68, pH 7.4, K 3.6, Na 142 * Patient has a mixed acid/base d/o; AG acidosis + resp alkalosis? * Insulin gtt initiated in ED, BSGs fell rapidly however AG still elevated --> dextrose added to IVF's to allow for continued IVF administration to resolve ketoacidosis with continued insulin administration while avoiding hypoglycemia. * Plan to continue the insulin drip at this time as he has not met criteria for transition. I suspect that tomorrow AM we can begin to transition him to a SQ regimen if labs and diet permit. PLAN FOR INPATIENT GLYCEMIC CONTROL: * Continuing IV insulin drip per protocol; goal range 130-200mg/dL * Please note that the plan above was derived based on current level of insulin resistance and hospital stress. These recommendations are appropriate for inpatient admission only. Plan of care upon discharge will need to be reassessed to avoid potential outpatient hypo/hyperglycemia. Thank you.
[2016-11-15] MEDS: LANOLIN/PETROLATUM 30 GM TUBE EXT SCH ×2 (16:00)
--- NOTE | 2016-11-15 16:05 | EMERGENCY ROOM VISIT NOTE ---
ED Visit Note First contact with patient: 08:30 I have personally evaluated and examined this patient. I agree with assessment and plan of Trisha Babb PA-C. 71 yr old male with extensive PMH arrives febrile and ill appearing with severe lactic acidosis. Sepsis unknown origin. Critical Care down to evaluate.
[2016-11-15 16:33] LABS: BUN/CREATININE RATIO 18.3 (10-20); CALCIUM 8.7 mg/dl (8.5-10.1); MAGNESIUM 1.9 mg/dl (1.8-2.4); POTASSIUM 3.9 mmol/L (3.5-5.1)
[2016-11-15 16:55] LABS: PHOSPHORUS 2.5 mg/dl (2.5-4.9)
[2016-11-15] MEDS ORDERED: NURSING VERBAL MED ORDER ONE (16:55)
[2016-11-15] MEDS ORDERED: INSULIN GLARGINE SOLOSTAR 100 UNITS/ML 3 ML PEN SC ONE (18:00)
[2016-11-15] MEDS: INSULIN ASPART 100 UNITS/ML 3 ML PEN SC SCH ×2 (18:34→21:58)
[2016-11-15] MEDS: NORMOSOL R 1,000 ML IV SCH (19:06)
[2016-11-15 19:13] VITALS: BP 105/62; PULSE 85; TEMP 37.1; O2SAT 99
[2016-11-15 19:38] VITALS: BP 143/54; PULSE 95; TEMP 37.2; O2SAT 97
[2016-11-15 21:18] LABS: BUN/CREATININE RATIO 18.2 (10-20); CREATININE 1.1 mg/dl (0.60-1.40); MAGNESIUM 1.8 mg/dl (1.8-2.4); PHOSPHORUS 2.5 mg/dl (2.5-4.9); POTASSIUM 4.2 mmol/L (3.5-5.1)
[2016-11-15] MEDS: MIRTAZAPINE TAB 15 MG TAB PO SCH (21:26)
[2016-11-15] MEDS: METOPROLOL TARTRATE 25 MG TAB PO SCH (21:27)
[2016-11-15] MEDS: PRAVASTATIN SOD 40 MG TAB PO SCH (21:27)
[2016-11-15] MEDS: HEPARIN SOD 5000 UNIT/0.5 ML CARP SQ SCH (21:29)
[2016-11-15 21:31] LABS: BETA-HYDROXYBUTYRATE 41.3 mg/dL (0.2-2.81)
[2016-11-15 22:00] LABS: CALCIUM 8.3 mg/dl (8.5-10.1)
[2016-11-16] VITALS (7 sets, daily range): BP systolic 103–106; BP diastolic 59–63; PULSE 71–85; TEMP 36.7–37.5; O2SAT 93–97; Ht 182.9 cm; Wt 71.7 kg
[2016-11-16 00:13] LABS: BUN/CREATININE RATIO 15.4 (10-20); CALCIUM 8.2 mg/dl (8.5-10.1); CREATININE 1.2 mg/dl (0.60-1.40); MAGNESIUM 1.8 mg/dl (1.8-2.4); POTASSIUM 3.6 mmol/L (3.5-5.1)
[2016-11-16] MEDS: INSULIN ASPART 100 UNITS/ML 3 ML PEN SC SCH ×6 (00:38→20:38)
[2016-11-16] MEDS: PIPERACILL/TAZOBAC IV 3.375 GM in DEXTROSE 5% 100ML 100 ML IV SCH ×3 (00:45→15:48)
[2016-11-16] MEDS ORDERED: INSULIN HUMAN REGULAR PER UNIT 7 UNITS in SYRINGE 0 ML IV ONE (03:45)
[2016-11-16] MEDS ORDERED: NURSING VERBAL MED ORDER ONE (04:15)
[2016-11-16] MEDS: NORMOSOL R 1,000 ML IV SCH ×2 (04:29→14:56)
[2016-11-16] MEDS: VANCOMYCIN INJ 1,100 MG in SODIUM CHLORIDE 0.9% 250ML 250 ML IV SCH ×2 (04:29→20:04)
[2016-11-16 04:34] LABS: BASO % 0.3 %; BASO ABS # 0.05 K/uL (0-0.2); BUN/CREATININE RATIO 16.3 (10-20); COMPLETE YES; EOS % 0.1 %; HEMATOCRIT 33.2 % (42-52); IG% 0.4 %; LYMPH % 11.4 %; LYMPH ABS # 2.15 K/uL (1.2-3.4); MAGNESIUM 1.8 mg/dl (1.8-2.4); MEAN CELL VOLUME 92.2 fL (80-100); MEAN CORPUSCULAR HEMOGLOBIN 31.1 pg (25-34); MEAN CORPUSCULAR HGB CONC 33.7 g/dl (32-36); MEAN PLATELET VOLUME 9.1 fL (7.4-10.4); MONO % 8.5 %; NEUT % 79.3 %; PHOSPHORUS 2.2 mg/dl (2.5-4.9); PLATELET COUNT 369 K/uL (130-400); POTASSIUM 3.5 mmol/L (3.5-5.1); WHITE BLOOD COUNT 18.87 K/uL (4.8-10.8)
[2016-11-16 04:40] LABS: CALCIUM 8.3 mg/dl (8.5-10.1)
--- NOTE | 2016-11-16 07:40 | DIAGNOSTIC IMAGING REPORT ---
CHEST ONE VIEW PORTABLE HISTORY: CONGESTION/INFILTRATE COMPARISON: None. FINDINGS: The lungs are clear. Cardiac silhouette is normal in size. No pleural effusions. No pneumothorax. Old left rib fractures. Hazy appearance the left lung base is likely due to overlapping soft tissue. IMPRESSION: No acute process. Electronically signed by: Hiren Adames M.D. 11/16/2016 7:39 AM Dictated Date/Time: 11/16/2016 7:38 AM
[2016-11-16 08:04] LABS: ESTIMATED AVERAGE GLUCOSE 200 mg/dl; HA1C FLAG Normal (Normal)
[2016-11-16] MEDS: METOPROLOL TARTRATE 25 MG TAB PO SCH ×2 (09:00→20:41)
[2016-11-16 09:06] LABS: BUN/CREATININE RATIO 15.9 (10-20); CREATININE 0.92 mg/dl (0.60-1.40); MAGNESIUM 1.9 mg/dl (1.8-2.4); POTASSIUM 3.3 mmol/L (3.5-5.1)
[2016-11-16 09:07] LABS: PHOSPHORUS 2.1 mg/dl (2.5-4.9)
[2016-11-16] MEDS: ASPIRIN 81 MG ECTAB PO SCH (09:10)
[2016-11-16] MEDS: MULTIVITAMIN TAB PO SCH (09:10)
[2016-11-16] MEDS: CITALOPRAM 20 MG TAB PO SCH (09:11)
[2016-11-16 09:17] LABS: CALCIUM 8.3 mg/dl (8.5-10.1)
[2016-11-16] MEDS: HEPARIN SOD 5000 UNIT/0.5 ML CARP SQ SCH ×2 (09:25→20:41)
[2016-11-16] MEDS: LANOLIN/PETROLATUM 30 GM TUBE EXT SCH ×6 (11:03→15:52)
[2016-11-16] MEDS: PANTOprazole INJ 40 MG in SYRINGE 0 ML IV SCH (11:28)
[2016-11-16] MEDS: POT PHOSPHATE MONOBASIC W/ SOD TAB PO SCH ×4 (13:00→20:41)
[2016-11-16] MEDS: POTASSIUM CHLORIDE 10 MEQ TABCR PO ONE ×2 (13:12→13:15)
--- NOTE | 2016-11-16 14:58 | Pharmacy Progress Note ---
Glycemic Control: Progress Nt Date of Service Nov 16, 2016. Scope Glycemic Pharmacist consulted by Dr. Prescott on 11/15/16 for glycemic control and to write orders per [facility] inpatient glycemic control protocol. Objective Accuchecks BSG (last 24hrs): Test 11/15/16 16:04 11/15/16 20:12 11/15/16 20:41 11/15/16 23:30 Random Glucose 190 mg/dl (70-99) 413 mg/dl (70-99) 298 mg/dl (70-99) Bedside Glucose 381 mg/dl (70-99) Test 11/16/16 00:21 11/16/16 03:55 11/16/16 04:06 11/16/16 08:17 Bedside Glucose 252 mg/dl (70-99) 139 mg/dl (70-99) Random Glucose 153 mg/dl (70-99) 125 mg/dl (70-99) Test 11/16/16 09:07 11/16/16 11:27 Bedside Glucose 130 mg/dl (70-99) 194 mg/dl (70-99) Laboratory Data (last 24hrs) Test 11/15/16 16:04 11/15/16 20:41 11/15/16 23:30 11/16/16 03:55 Anion Gap 13.0 mmol/L 16.0 mmol/L 13.0 mmol/L 9.0 mmol/L BUN/Creatinine Ratio 18.3 18.2 15.4 16.3 Blood Urea Nitrogen 18 mg/dl 20 mg/dl 18 mg/dl 16 mg/dl Creatinine 1.00 mg/dl 1.10 mg/dl 1.20 mg/dl 1.00 mg/dl Potassium Level 3.9 mmol/L 4.2 mmol/L 3.6 mmol/L 3.5 mmol/L Sodium Level 142 mmol/L 141 mmol/L 142 mmol/L 145 mmol/L Hemoglobin A1c 8.6 % White Blood Count 18.87 K/uL Red Blood Count 3.60 M/uL Hemoglobin 11.2 g/dL Hematocrit 33.2 % Mean Corpuscular Volume 92.2 fL Mean Corpuscular Hemoglobin 31.1 pg Mean Corpuscular Hemoglobin Concent 33.7 g/dl Platelet Count 369 K/uL Mean Platelet Volume 9.1 fL Neutrophils (%) (Auto) 79.3 % Lymphocytes (%) (Auto) 11.4 % Monocytes (%) (Auto) 8.5 % Eosinophils (%) (Auto) 0.1 % Basophils (%) (Auto) 0.3 % Neutrophils # (Auto) 14.98 K/uL Lymphocytes # (Auto) 2.15 K/uL Monocytes # (Auto) 1.60 K/uL Eosinophils # (Auto) 0.02 K/uL Basophils # (Auto) 0.05 K/uL Test 11/16/16 08:17 Anion Gap 11.0 mmol/L BUN/Creatinine Ratio 15.9 Blood Urea Nitrogen 15 mg/dl Creatinine 0.92 mg/dl Potassium Level 3.3 mmol/L Sodium Level 144 mmol/L HbA1c: Test 11/16/16 03:55 Hemoglobin A1c 8.6 % (4.5-5.6) H Recent Pertinent Medications Outpatient Anti-diabetic Regimen: * Lantus 30 units Q PM * Humalog 14 units w/ breakfast + 14 units w/ lunch + 4 units w/ dinner The patient is currently receiving: * Basal insulin: Lantus 30 units sq daily * Correctional Insulin: Novolog Correction per scale ACHS Goal Range: Low 140 mg/dL - High 180 mg/dL Correction Factor: 20 mg/dL/unit * Prandial insulin: Per carb ratio of 1 unit per 9 grams CHO consumed Risk Factors for Insulin Resistance: * Infection: receiving empiric abx coverage: vancomycin + zosyn * IVF: Normosol R (does not contain dextrose) * Diet: T2DM Assessment & Plan ASSESSMENT: Initial: * 71 yo male admitted from [facility] w/ hyperglycemia, MS changes, DKA, possible infxn * Labs on admission: Glu 335, AG 21, Bicarb 14, BOHB 20.68, pH 7.4, K 3.6, Na 142 * Patient has a mixed acid/base d/o; AG acidosis + resp alkalosis? * Insulin gtt initiated in ED, BSGs fell rapidly however AG still elevated --> dextrose added to IVF's to allow for continued IVF administration to resolve ketoacidosis with continued insulin administration while avoiding hypoglycemia. * Plan to continue the insulin drip at this time as he has not met criteria for transition. I suspect that tomorrow AM we can begin to transition him to a SQ regimen if labs and diet permit. 11/16/16 * Patient was transitioned off insulin drip yesterday evening. He was started on his home dose of Lantus and CF/CR based on weight and stress of 3. * Fasting BSG is acceptable. BSGs trending up at lunch time. * Continue aggressive CF/CR with overnight checks for now * Tighten goal range PLAN FOR INPATIENT GLYCEMIC CONTROL: * Continuing Lantus to 30 units SQ daily * Continuing correction factor to 20 mg/dl/unit * Continuing carb ratio to 1 unit per 9 grams CHO consumed * Tighten goal range to Low 110 mg/dL - High 140 mg/dL RECOMMENDATIONS FOR DISCHARGE: * * Please note that the plan above was derived based on current level of insulin resistance and hospital stress. These recommendations are appropriate for inpatient admission only. Plan of care upon discharge will need to be reassessed to avoid potential outpatient hypo/hyperglycemia. Thank you.
--- NOTE | 2016-11-16 19:00 | Progress Note ---
Internal Med Progress Note Date of Service: Nov 16, 2016. Provider Documentation: SUBJECTIVE: resting comfortably alert and oriented x 1 denies any pain says eating ok no nausea afebrile denies sob OBJECTIVE: Vital Signs-as noted below Exam: General-alert and oriented x 1. Not in distress ENT-normal hearing Neck-no neck masses Lungs-cta b/l no wheezing or crackles Heart-s1 and s2 heard regular no murmurs Abdomen-soft bowel sounds present nontender no distension Extremities-no edema no erythema Neuro-alert and oriented moves extremities Lab data as noted below. ASSESSMENT & PLAN: This is a 71-year-old male who presents with diabetic ketoacidosis. 1. Diabetic ketoacidosis. Improved with insulin drip protocol and aggressive fluids currently on lantus and ISS appreciate pharmacy help hba1c 8.6 will monitor Metabolic acidosis, elevated lactic acidosis most likely secondary to diabetic ketoacidosis. Management as above. On empiric antibiotics , IV Zosyn and vancomycin. Follow the urine and blood cultures.Improved ARF resolved Electrolyte abnormalities will replace UTI Bacteremia await final cx on iv abx as above Mild elevation of troponin from above asymptomatic f/u trend History of coronary artery. Continue aspirin, beta kenton and statin. Currently seems to be stable. History of hyperlipidemia. Continue statin. History of decubitus ulcers. , antibiotics as above. Wound consult Peripheral vascular disease on aspirin. Depression on Remeron and Celexa. Gastroesophageal reflux disease on PPI. History of dementia. Will monitor for delirium. Hypertension on Lopressor. We will follow the blood pressure. History of cerebrovascular accident on aspirin and statin. Blood pressure control. Deep venous thrombosis prophylaxis. SCDs and heparin subcutaneous. DISPOSITION to be determined social service for d/c planning Vital Signs: Date Time Temp Pulse Resp B/P (MAP) Pulse Ox O2 Delivery O2 Flow Rate FiO2 11/16/16 16:00 Room Air 11/16/16 15:11 36.7 74 18 106/59 (75) 96 Room Air 11/16/16 12:00 93 Room Air 11/16/16 08:00 Room Air 11/16/16 08:00 96 Room Air 11/16/16 07:14 36.8 71 20 103/63 (76) 96 Room Air 11/16/16 00:09 37.5 85 18 104/61 (75) 97 Room Air 11/16/16 00:00 97 Room Air 11/15/16 19:38 37.2 95 18 143/54 (83) 97 Room Air 11/15/16 19:30 Room Air 11/15/16 19:13 37.1 85 14 99 2.0 Lab Results: Results Past 24 Hours Test 11/15/16 20:12 11/15/16 20:41 11/15/16 23:30 11/16/16 00:21 Range/Units Bedside Glucose 381 252 70-99 mg/dl Sodium Level 141 142 136-145 mmol/L Potassium Level 4.2 3.6 3.5-5.1 mmol/L Chloride Level 107 109 98-107 mmol/L Carbon Dioxide Level 18 20 21-32 mmol/L Anion Gap 16.0 13.0 3-11 mmol/L Blood Urea Nitrogen 20 18 7-18 mg/dl Creatinine 1.10 1.20 0.60-1.40 mg/dl Est Creatinine Clear Calc Drug Dose 63.4 58.1 ml/min Estimated GFR () 78.4 70.6 Estimated GFR (Non- 67.7 60.9 BUN/Creatinine Ratio 18.2 15.4 10-20 Random Glucose 413 298 70-99 mg/dl Lactic Acid Level 1.9 0.4-2.0 mmol/L Calcium Level 8.3 8.2 8.5-10.1 mg/dl Phosphorus Level 2.5 2.0 2.5-4.9 mg/dl Magnesium Level 1.8 1.8 1.8-2.4 mg/dl Beta-Hydroxybutyric Acid 41.30 0.2-2.81 mg/dL Test 11/16/16 03:55 11/16/16 04:06 11/16/16 08:17 11/16/16 09:07 Range/Units White Blood Count 18.87 4.8-10.8 K/uL Red Blood Count 3.60 4.7-6.1 M/uL Hemoglobin 11.2 14.0-18.0 g/dL Hematocrit 33.2 42-52 % Mean Corpuscular Volume 92.2 80-100 fL Mean Corpuscular Hemoglobin 31.1 25-34 pg Mean Corpuscular Hemoglobin Concent 33.7 32-36 g/dl Platelet Count 369 130-400 K/uL Mean Platelet Volume 9.1 7.4-10.4 fL Neutrophils (%) (Auto) 79.3 % Lymphocytes (%) (Auto) 11.4 % Monocytes (%) (Auto) 8.5 % Eosinophils (%) (Auto) 0.1 % Basophils (%) (Auto) 0.3 % Neutrophils # (Auto) 14.98 1.4-6.5 K/uL Lymphocytes # (Auto) 2.15 1.2-3.4 K/uL Monocytes # (Auto) 1.60 0.11-0.59 K/uL Eosinophils # (Auto) 0.02 0-0.5 K/uL Basophils # (Auto) 0.05 0-0.2 K/uL RDW Standard Deviation 44.5 36.4-46.3 fL RDW Coefficient of Variation 13.1 11.5-14.5 % Immature Granulocyte % (Auto) 0.4 % Immature Granulocyte # (Auto) 0.07 0.00-0.02 K/uL Sodium Level 145 144 136-145 mmol/L Potassium Level 3.5 3.3 3.5-5.1 mmol/L Chloride Level 111 112 98-107 mmol/L Carbon Dioxide Level 25 21 21-32 mmol/L Anion Gap 9.0 11.0 3-11 mmol/L Blood Urea Nitrogen 16 15 7-18 mg/dl Creatinine 1.00 0.92 0.60-1.40 mg/dl Est Creatinine Clear Calc Drug Dose 69.7 75.8 ml/min Estimated GFR () 88.0 97.3 Estimated GFR (Non- 75.9 84.0 BUN/Creatinine Ratio 16.3 15.9 10-20 Random Glucose 153 125 70-99 mg/dl Estimated Average Glucose 200 mg/dl Hemoglobin A1c 8.6 4.5-5.6 % Calcium Level 8.3 8.3 8.5-10.1 mg/dl Phosphorus Level 2.2 2.1 2.5-4.9 mg/dl Magnesium Level 1.8 1.9 1.8-2.4 mg/dl Bedside Glucose 139 130 70-99 mg/dl Lactic Acid Level 1.2 0.4-2.0 mmol/L Test 11/16/16 11:27 11/16/16 16:07 Range/Units Bedside Glucose 194 220 70-99 mg/dl
[2016-11-16] MEDS: NSS + 20MEQ KCL 1000ML 1,000 ML IV SCH (19:38)
[2016-11-16] MEDS: MIRTAZAPINE TAB 15 MG TAB PO SCH (20:41)
[2016-11-16] MEDS: PRAVASTATIN SOD 40 MG TAB PO SCH (20:41)
[2016-11-16] MEDS ORDERED: INSULIN GLARGINE SOLOSTAR 100 UNITS/ML 3 ML PEN SC SCH (21:00)
[2016-11-17] MEDS: PIPERACILL/TAZOBAC IV 3.375 GM in DEXTROSE 5% 100ML 100 ML IV SCH ×4 (00:02→23:31)
[2016-11-17] MEDS: LANOLIN/PETROLATUM 30 GM TUBE EXT SCH ×8 (00:02→23:27)
[2016-11-17] MEDS: INSULIN ASPART 100 UNITS/ML 3 ML PEN SC SCH ×6 (04:00→20:00)
[2016-11-17 07:29] LABS: BASO % 0.5 %; BASO ABS # 0.05 K/uL (0-0.2); COMPLETE YES; EOS % 3.2 %; IG% 0.2 %; LYMPH % 21.9 %; MEAN CELL VOLUME 92.8 fL (80-100); MEAN CORPUSCULAR HEMOGLOBIN 31.1 pg (25-34); MEAN CORPUSCULAR HGB CONC 33.5 g/dl (32-36); MEAN PLATELET VOLUME 9.6 fL (7.4-10.4); MONO % 10.7 %; NEUT % 63.5 %; PLATELET COUNT 324 K/uL (130-400); RED BLOOD COUNT 3.34 M/uL (4.7-6.1); WHITE BLOOD COUNT 9.59 K/uL (4.8-10.8)
[2016-11-17 07:42] VITALS: BP 104/66; PULSE 64; TEMP 36.5; O2SAT 98
--- NOTE | 2016-11-17 07:46 | DIAGNOSTIC IMAGING REPORT ---
CHEST ONE VIEW PORTABLE HISTORY: CONGESTION/INFILTRATE COMPARISON: Chest 11/16/2016. FINDINGS: Old, healed left-sided rib fractures. The lungs are clear. The heart is normal in size. No pleural effusions. No pneumothorax. IMPRESSION: No acute process. Electronically signed by: Hiren Adames M.D. 11/17/2016 7:44 AM Dictated Date/Time: 11/17/2016 7:44 AM
[2016-11-17 08:12] LABS: BUN/CREATININE RATIO 9.8 (10-20); CALCIUM 8.1 mg/dl (8.5-10.1); CREATININE 0.83 mg/dl (0.60-1.40); MAGNESIUM 1.9 mg/dl (1.8-2.4); POTASSIUM 3.5 mmol/L (3.5-5.1)
[2016-11-17] MEDS: CITALOPRAM 20 MG TAB PO SCH (08:51)
[2016-11-17] MEDS: METOPROLOL TARTRATE 25 MG TAB PO SCH ×2 (08:51→19:56)
[2016-11-17] MEDS: ASPIRIN 81 MG ECTAB PO SCH (08:51)
[2016-11-17] MEDS: MULTIVITAMIN TAB PO SCH (08:52)
[2016-11-17] MEDS: POT PHOSPHATE MONOBASIC W/ SOD TAB PO SCH ×4 (08:52→19:56)
[2016-11-17] MEDS: NSS + 20MEQ KCL 1000ML 1,000 ML IV SCH ×2 (09:01→22:24)
[2016-11-17] MEDS: HEPARIN SOD 5000 UNIT/0.5 ML CARP SQ SCH ×2 (09:16→20:14)
--- NOTE | 2016-11-17 09:36 | Pharmacy Progress Note ---
Glycemic Control: Progress Nt Date of Service Nov 17, 2016. Scope Glycemic Pharmacist consulted by Dr Prescott on 11/15/16 for glycemic control and to write orders per [facility] inpatient glycemic control protocol. Objective Accuchecks BSG (last 24hrs): Test 11/16/16 11:27 11/16/16 16:07 11/16/16 20:25 11/17/16 00:07 Bedside Glucose 194 mg/dl (70-99) 220 mg/dl (70-99) 291 mg/dl (70-99) 112 mg/dl (70-99) Test 11/17/16 04:04 11/17/16 04:21 11/17/16 04:41 11/17/16 05:15 Bedside Glucose 44 mg/dl (70-99) 45 mg/dl (70-99) 71 mg/dl (70-99) 102 mg/dl (70-99) Test 11/17/16 07:03 Random Glucose 113 mg/dl (70-99) Laboratory Data (last 24hrs) Test 11/17/16 07:03 Anion Gap 10.0 mmol/L BUN/Creatinine Ratio 9.8 Blood Urea Nitrogen 8 mg/dl Creatinine 0.83 mg/dl Potassium Level 3.5 mmol/L Sodium Level 144 mmol/L White Blood Count 9.59 K/uL Red Blood Count 3.34 M/uL Hemoglobin 10.4 g/dL Hematocrit 31.0 % Mean Corpuscular Volume 92.8 fL Mean Corpuscular Hemoglobin 31.1 pg Mean Corpuscular Hemoglobin Concent 33.5 g/dl Platelet Count 324 K/uL Mean Platelet Volume 9.6 fL Neutrophils (%) (Auto) 63.5 % Lymphocytes (%) (Auto) 21.9 % Monocytes (%) (Auto) 10.7 % Eosinophils (%) (Auto) 3.2 % Basophils (%) (Auto) 0.5 % Neutrophils # (Auto) 6.08 K/uL Lymphocytes # (Auto) 2.10 K/uL Monocytes # (Auto) 1.03 K/uL Eosinophils # (Auto) 0.31 K/uL Basophils # (Auto) 0.05 K/uL HbA1c: Test 11/16/16 03:55 Hemoglobin A1c 8.6 % (4.5-5.6) H Recent Pertinent Medications Outpatient Anti-diabetic Regimen: * Lantus 30 units Q PM * Humalog 14 units w/ breakfast + 14 units w/ lunch + 4 units w/ dinner The patient is currently receiving: * Basal insulin: Lantus 30 units sq daily * Correctional Insulin: Novolog Correction per scale ACHS Goal Range: Low 140 mg/dL - High 180 mg/dL Correction Factor: 20 mg/dL/unit * Prandial insulin: Per carb ratio of 1 unit per 9 grams CHO consumed Risk Factors for Insulin Resistance: * Infection: Vancomycin + Zosyn * Diet: T2DM Assessment & Plan ASSESSMENT: Initial: * 71 yo male admitted from [facility] w/ hyperglycemia, MS changes, DKA, possible infxn * Labs on admission: Glu 335, AG 21, Bicarb 14, BOHB 20.68, pH 7.4, K 3.6, Na 142 * Patient has a mixed acid/base d/o; AG acidosis + resp alkalosis? 11/17/16 * BSGs ranged from 112 to 291 mg/dL over the past 24 hours. Patient received 45 units of insulin. * 30 units of basal insulin (67%) * 15 units of bolus insulin (33%) * Patient had hypoglycemic event overnight * BSG of 44 mg/dL. Patient was treated with orange juice and crackers. BSG improved to 71 mg/dL and was 102 mg/dL thirty minutes later. * I suspect this was due to large dose of bolus insulin at HS for BSG of 291 mg /dL * Aggressive bolus insulin parameters were selected initially due to high level of insulin resistance with DKA and BSGs > 300 mg/dL on arrival. Parameters require adjustment at this time. * Will redistribute regimen to achieve closer to a 50% basal and 50% bolus regimen * New regimen will be based off of total daily dose of ~50 units * Slightly decrease basal insulin * Loosen CF/CR parameters to avoid further hypoglycemia PLAN FOR INPATIENT GLYCEMIC CONTROL: * Decrease Lantus to 25 units SQ daily * Loosen correction factor to 30 mg/dl/unit * Loosen carb ratio to 1 unit per 10 grams CHO consumed * Continue goal range to Low 110 mg/dL - High 140 mg/dL RECOMMENDATIONS FOR DISCHARGE: * Outpatient control is less than adequate evidenced by A1c of 8.6 % on 11/16/16 - of note, this has decreased from 9.2% on * Recommend resuming outpatient patient Lantus and Humalog regimen on discharge. Continue to titrate doses with outpatient provider. * Please note that the plan above was derived based on current level of insulin resistance and hospital stress. These recommendations are appropriate for inpatient admission only. Plan of care upon discharge will need to be reassessed to avoid potential outpatient hypo/hyperglycemia. Thank you.
[2016-11-17] MEDS ORDERED: VANCOMYCIN TROUGH ONE (11:30)
[2016-11-17] MEDS: PANTOprazole INJ 40 MG in SYRINGE 0 ML IV SCH (12:49)
--- NOTE | 2016-11-17 12:57 | Pharmacy Progress Note ---
Pharmacy Abx Dose Progress Nt Date of Service Nov 17, 2016. Pharmacy Dosing Scope The patient is currently receiving the following antimicrobial agents per Pharmacy consult: * Vancomycin 1100 mg IV every 16 hours * Piperacillin/tazobactam 3.375 grams IV every 8 hours Objective Height (Feet): 6 Height (Inches): 0.00 Weight (Kilograms): 71.700 Vital Signs (Past 12Hrs) Vital Signs Past 12 Hours Date Time Temp Pulse Resp B/P (MAP) Pulse Ox O2 Delivery O2 Flow Rate FiO2 11/17/16 08:30 Room Air 11/17/16 07:42 36.5 64 16 104/66 (79) 98 Room Air Lab Results (24Hrs) Laboratory Tests (24 Hours) Test 11/17/16 07:03 White Blood Count 9.59 K/uL (4.8-10.8) Red Blood Count 3.34 M/uL (4.7-6.1) L Hemoglobin 10.4 g/dL (14.0-18.0) L Hematocrit 31.0 % (42-52) L Mean Corpuscular Volume 92.8 fL (80-100) Mean Corpuscular Hemoglobin 31.1 pg (25-34) Mean Corpuscular Hemoglobin Concent 33.5 g/dl (32-36) Platelet Count 324 K/uL (130-400) Mean Platelet Volume 9.6 fL (7.4-10.4) Neutrophils (%) (Auto) 63.5 % Lymphocytes (%) (Auto) 21.9 % Monocytes (%) (Auto) 10.7 % Eosinophils (%) (Auto) 3.2 % Basophils (%) (Auto) 0.5 % Neutrophils # (Auto) 6.08 K/uL (1.4-6.5) Lymphocytes # (Auto) 2.10 K/uL (1.2-3.4) Monocytes # (Auto) 1.03 K/uL (0.11-0.59) H Eosinophils # (Auto) 0.31 K/uL (0-0.5) Basophils # (Auto) 0.05 K/uL (0-0.2) Micro Results Date/Time Source Procedure Growth Status 11/17/16 12:14 Blood Blood Culture Pending Ordered 11/17/16 12:14 Blood Blood Culture Pending Ordered 11/15/16 09:25 Blood Blood Culture - Preliminary Staph Species Resulted 11/15/16 09:20 Blood Blood Culture - Preliminary NO GROWTH TO DATE. Resulted 11/15/16 00:00 Nasal MRSA DNA Surveillance Screen - Final Specimen Positive for MRSA by DNA Probe Complete 11/15/16 09:00 Urine,Catheterized Urine Culture - Final Enterococcus Faecalis Diptheroids Complete URINE CULTURE Final 11/17/16-1109 Organism 1 ENTEROCOCCUS FAECALIS COLONY COUNT >100,000 CFU/ml SENS SENSITIVITY TO FOLLOW Organism 2 DIPTHEROIDS COLONY COUNT >100,000 CFU/ml SENS NO SENSITIVITY TO FOLLOW 1. ENTEROCOCCUS FAECALIS Target Route Dose RX AB Cost M.I.C. IQ ------ ----- ------ -- ------ -------- - ------ AMPICILLIN S <=2 GENT SYNERGY S <=500 VANCOMYCIN S 4 PENICILLIN S 2 CIPROFLOXACIN R >2 LEVOFLOXACIN R >4 DAPTOMYCIN S <=0.5 NITROFURANTOIN S <=32 STREP SYNERGY S <=1000 Streptomycin Synergy Screen S Gentamicin Synergy Screen S S = SENSITIVE I = INTERMEDIATE R = RESISTANT Risk Factors for Resistance * Resident in a halfway or extended-care facility Assessment & Plan Assessment * 71 year old male receiving vancomycin and piperacillin/tazobactam for treatment of UTI and bacteremia * Day # 3 of antimicrobial therapy * Serum creatinine drastically improved since admission so it is not surprising that vancomycin trough is somewhat subtherapeutic Plan * Continue IV antibiotics at this time and await identification and sensitivities of staph in blood Vancomycin IV * Trough level of 12.3 mcg/mL is subtherapeutic * Change to 1000 mg IV every 12 hours * Goal trough level for bacteremia: 15 to 20 mcg/mL * Trough level ordered for: 11/19/16 prior to 09:00 dose Piperacillin/tazobactam * Continue 3.375 g IV extended infusion every 8 hours for CrCl greater than 20 mL/min Pharmacy will continue to follow and will adjust dose/frequency as necessary. Thank you.
--- NOTE | 2016-11-17 13:54 | Clinical Documentation Query ---
CLINICAL DOCUMENTATION QUERY Dr. MODI, In your clinical opinion is this patient being managed for: ( x ) Sepsis from UTI , POA ( ) Other explanation of clinical findings (Please Explain) ( ) Unable to determine (Please Define) ( ) Need to Discuss ( ) Not Agree The medical record reflects the following clinical findings, treatment, and risk factors. Clinical Indicators: 71 yo male presenting with DKA, OMA. WBC 19.16, Cr 1.70. Lactic acid 8.3. Heart rate 131. UA cx with enterococcus faecalis. Treatment:IV fluid boluses then continuous, IV insulin, IV zosyn, IV vancomcyin, serial lactic acids/PRP's and CBC's Risk Factors: age, DM/immunocompromised, UTI Please clarify and document your clinical opinion in the progress notes and discharge summary. Terms such as "probable", "suspected", "likely", "questionable", "possible", or "still to be ruled out" are acceptable. IF IN AGREEMENT, YOU MUST DOCUMENT ABOVE DIAGNOSTIC STATEMENT IN DAILY PROGRESS NOTES AND DISCHARGE SUMMARY. This document is not part of the patient's record. Thank You, Christina Acosta RN [phone]
[2016-11-17] MEDS: VANCOMYCIN INJ 1,100 MG in SODIUM CHLORIDE 0.9% 250ML 250 ML IV SCH (14:26)
[2016-11-17 15:17] VITALS: BP 123/67; PULSE 63; TEMP 36.9; O2SAT 98
--- NOTE | 2016-11-17 17:45 | Progress Note ---
Internal Med Progress Note Date of Service: Nov 17, 2016. Provider Documentation: SUBJECTIVE: resting comfortably alert and oriented x 1 says he is doing fine OBJECTIVE: Vital Signs-as noted below Exam: General-alert and oriented x 1. Not in distress ENT-normal hearing Neck-no neck masses Lungs-cta b/l no wheezing or crackles Heart-s1 and s2 heard regular no murmurs Abdomen-soft bowel sounds present nontender no distension Extremities-no edema no erythema Neuro-alert and oriented moves extremities Lab data as noted below. ASSESSMENT & PLAN: This is a 71-year-old male who presents with diabetic ketoacidosis. 1. Diabetic ketoacidosis. Improved with insulin drip protocol and aggressive fluids currently on lantus and ISS appreciate pharmacy help hba1c 8.6 102/113/124/156 will monitor Metabolic acidosis, elevated lactic acidosis most likely secondary to diabetic ketoacidosis. Management as above. On empiric antibiotics , IV Zosyn and vancomycin. Follow the urine and blood cultures.Improved ARF resolved Electrolyte abnormalities will replace UTI Bacteremia await final cx on iv abx as above will consider ID consultation Mild elevation of troponin from above asymptomatic f/u trend-trending down History of coronary artery. Continue aspirin, beta kenton and statin. Currently seems to be stable. History of hyperlipidemia. Continue statin. History of decubitus ulcers. , antibiotics as above. Wound consult Peripheral vascular disease on aspirin. Depression on Remeron and Celexa. Gastroesophageal reflux disease on PPI. History of dementia. Will monitor for delirium. Hypertension on Lopressor. We will follow the blood pressure. History of cerebrovascular accident on aspirin and statin. Blood pressure control. Deep venous thrombosis prophylaxis. SCDs and heparin subcutaneous. DISPOSITION to be determined social service for d/c planning back to snf when stable Vital Signs: Date Time Temp Pulse Resp B/P (MAP) Pulse Ox O2 Delivery O2 Flow Rate FiO2 11/17/16 16:00 Room Air 11/17/16 15:17 36.9 63 20 123/67 (85) 98 Room Air 11/17/16 08:30 Room Air 11/17/16 07:42 36.5 64 16 104/66 (79) 98 Room Air 11/17/16 00:00 Room Air 11/16/16 23:54 37.2 73 16 103/60 (74) 97 Room Air Lab Results: Results Past 24 Hours Test 11/16/16 20:25 11/17/16 00:07 11/17/16 04:04 11/17/16 04:21 Range/Units Bedside Glucose 291 112 44 45 70-99 mg/dl Test 11/17/16 04:41 11/17/16 05:15 11/17/16 07:03 11/17/16 07:19 Range/Units Bedside Glucose 71 102 124 70-99 mg/dl White Blood Count 9.59 4.8-10.8 K/uL Red Blood Count 3.34 4.7-6.1 M/uL Hemoglobin 10.4 14.0-18.0 g/dL Hematocrit 31.0 42-52 % Mean Corpuscular Volume 92.8 80-100 fL Mean Corpuscular Hemoglobin 31.1 25-34 pg Mean Corpuscular Hemoglobin Concent 33.5 32-36 g/dl Platelet Count 324 130-400 K/uL Mean Platelet Volume 9.6 7.4-10.4 fL Neutrophils (%) (Auto) 63.5 % Lymphocytes (%) (Auto) 21.9 % Monocytes (%) (Auto) 10.7 % Eosinophils (%) (Auto) 3.2 % Basophils (%) (Auto) 0.5 % Neutrophils # (Auto) 6.08 1.4-6.5 K/uL Lymphocytes # (Auto) 2.10 1.2-3.4 K/uL Monocytes # (Auto) 1.03 0.11-0.59 K/uL Eosinophils # (Auto) 0.31 0-0.5 K/uL Basophils # (Auto) 0.05 0-0.2 K/uL RDW Standard Deviation 45.3 36.4-46.3 fL RDW Coefficient of Variation 13.3 11.5-14.5 % Immature Granulocyte % (Auto) 0.2 % Immature Granulocyte # (Auto) 0.02 0.00-0.02 K/uL Sodium Level 144 136-145 mmol/L Potassium Level 3.5 3.5-5.1 mmol/L Chloride Level 111 98-107 mmol/L Carbon Dioxide Level 23 21-32 mmol/L Anion Gap 10.0 3-11 mmol/L Blood Urea Nitrogen 8 7-18 mg/dl Creatinine 0.83 0.60-1.40 mg/dl Est Creatinine Clear Calc Drug Dose 84.0 ml/min Estimated GFR () 103.3 Estimated GFR (Non- 89.2 BUN/Creatinine Ratio 9.8 10-20 Random Glucose 113 70-99 mg/dl Calcium Level 8.1 8.5-10.1 mg/dl Magnesium Level 1.9 1.8-2.4 mg/dl Troponin I 0.322 0-0.045 ng/ml Test 11/17/16 11:18 Range/Units Bedside Glucose 156 70-99 mg/dl Vancomycin Level Trough 12.3 SEE COMMENT mcg/ml Microbiology Results 11/17/16 Blood Culture, Received Pending 11/17/16 Blood Culture, Received Pending
[2016-11-17] MEDS: PRAVASTATIN SOD 40 MG TAB PO SCH (19:57)
[2016-11-17] MEDS: MIRTAZAPINE TAB 15 MG TAB PO SCH (19:57)
[2016-11-17] MEDS: VANCOMYCIN INJ 1,000 MG in SODIUM CHLORIDE 0.9% 250ML 250 ML IV SCH (19:58)
[2016-11-17] MEDS ORDERED: INSULIN GLARGINE SOLOSTAR 100 UNITS/ML 3 ML PEN SC SCH (21:00)
[2016-11-17 23:04] VITALS: BP 105/63; PULSE 63; TEMP 36.9; O2SAT 98
[2016-11-17 23:39] VITALS: BP 111/65; PULSE 61; TEMP 36.9; O2SAT 97
[2016-11-18] MEDS: INSULIN ASPART 100 UNITS/ML 3 ML PEN SC SCH ×4 (06:30→21:02)
[2016-11-18 06:53] LABS: BASO % 0.8 %; BASO ABS # 0.06 K/uL (0-0.2); COMPLETE YES; EOS % 8.9 %; HEMATOCRIT 34.5 % (42-52); IG% 0.1 %; LYMPH % 33.6 %; LYMPH ABS # 2.41 K/uL (1.2-3.4); MEAN CORPUSCULAR HEMOGLOBIN 31.5 pg (25-34); MEAN CORPUSCULAR HGB CONC 33.9 g/dl (32-36); MEAN PLATELET VOLUME 9.3 fL (7.4-10.4); MONO % 9.6 %; PLATELET COUNT 334 K/uL (130-400); RED BLOOD COUNT 3.71 M/uL (4.7-6.1); WHITE BLOOD COUNT 7.17 K/uL (4.8-10.8)
[2016-11-18] MEDS: LANOLIN/PETROLATUM 30 GM TUBE EXT SCH ×6 (07:16→23:38)
[2016-11-18] MEDS: METOPROLOL TARTRATE 25 MG TAB PO SCH ×2 (07:17→20:40)
[2016-11-18] MEDS: HEPARIN SOD 5000 UNIT/0.5 ML CARP SQ SCH ×2 (07:17→21:02)
[2016-11-18] MEDS: POT PHOSPHATE MONOBASIC W/ SOD TAB PO SCH ×4 (07:17→20:40)
[2016-11-18] MEDS: PIPERACILL/TAZOBAC IV 3.375 GM in DEXTROSE 5% 100ML 100 ML IV SCH ×2 (07:17→15:39)
[2016-11-18] MEDS: CITALOPRAM 20 MG TAB PO SCH (07:18)
[2016-11-18] MEDS: ASPIRIN 81 MG ECTAB PO SCH (07:18)
[2016-11-18] MEDS: MULTIVITAMIN TAB PO SCH (07:18)
[2016-11-18 07:22] VITALS: BP 112/65; PULSE 60; TEMP 36.5; O2SAT 98
[2016-11-18 07:41] LABS: BUN/CREATININE RATIO 6.5 (10-20); CALCIUM 8.2 mg/dl (8.5-10.1); CREATININE 0.71 mg/dl (0.60-1.40); MAGNESIUM 1.9 mg/dl (1.8-2.4); POTASSIUM 3.9 mmol/L (3.5-5.1)
[2016-11-18] MEDS: VANCOMYCIN INJ 1,000 MG in SODIUM CHLORIDE 0.9% 250ML 250 ML IV SCH (08:33)
[2016-11-18] MEDS: PANTOprazole INJ 40 MG in SYRINGE 0 ML IV SCH (11:18)
[2016-11-18] MEDS: NSS + 20MEQ KCL 1000ML 1,000 ML IV SCH (11:18)
--- NOTE | 2016-11-18 12:28 | Pharmacy Progress Note ---
Glycemic Control Progress Note Date of Service Nov 18, 2016. Scope Glycemic Pharmacist consulted for glycemic control to write orders per [facility] inpatient glycemic control protocol. Objective Accuchecks BSG (last 24hrs): Test 11/17/16 16:17 11/17/16 19:59 11/18/16 02:14 11/18/16 06:45 Bedside Glucose 181 mg/dl (70-99) 104 mg/dl (70-99) 119 mg/dl (70-99) Random Glucose 102 mg/dl (70-99) Test 11/18/16 07:33 11/18/16 11:43 Bedside Glucose 99 mg/dl (70-99) 91 mg/dl (70-99) HbA1c: Test 11/16/16 03:55 Hemoglobin A1c 8.6 % (4.5-5.6) H Recent Pertinent Medications The patient is currently receiving: * Basal insulin: Lantus 25 units every 24 hours given at bedtime * Correctional Insulin: Novolog Correction per scale ACHS Goal Range: Low 110 mg/dL - High 140 mg/dL Correction Factor: 30 mg/dL/unit * Prandial insulin: Per carb ratio of 1 unit per 10 grams CHO consumed Outpatient Anti-Diabetic Meds Basal Insulin & Bolus Insulin Assessment & Plan ASSESSMENT: * See progress note from 11/16 for more background info, in short: * Pt receiving SQ basal bolus insulin regimen for hyperglycemia secondary to baseline DM (on SQ basal bolus regimen as an outpatient),stress/infection * Patient is currently receiving an average of 33 units of insulin per day * 25 units of basal insulin {outpatient basal insulin dosing is 30 units, lower dose in house for dec PO) * 8 units of prandial/correctional insulin * BSGs 156, 181, 104, 99, 91 over the past 24hrs * Changes needed to insulin regimen: * AM Fasting BSG = 99 mg/dl. This is in slightly below goal range for patient based on inpatient targets and co-morbidities. Therefore Basal insulin needs decreased * Post-prandial BSGs are in range therefore no changes needed to CF/CR * Total daily dose = 33 units. decrease in total daily dose is needed secondary to decreased PO intake PLAN FOR INPATIENT GLYCEMIC CONTROL: * Basal insulin: Decrease * Lantus 22 units SQ HS * Bolus insulin: No change, not really receiving any NovoLog secondary to dec PO and below goal range BSGs * NovoLog per scale ACHS or Q6hrs while NPO * Goal Range: Low 110 mg/dL - High 140 mg/dL * Correction Factor: 30 mg/dL/unit * Nutritional / Prandial insulin per carb ratio of 1 unit per 10 grams CHO consumed * Please note that the plan above was derived based on current level of insulin resistance and hospital stress. These recommendations are appropriate for inpatient admission only. Plan of care upon discharge will need to be reassessed to avoid potential outpatient hypo/hyperglycemia. Thank you.
[2016-11-18] MEDS ORDERED: PERFLUTREN LIPID MICROSPHERE (DEFINITY) IV ONE (13:16)
--- NOTE | 2016-11-18 14:35 | ECHOCARDIOGRAM REPORT ---
*NOTICE TO RECEIVING LIBERTARIAN AGENCY This information is strictly Confidential and protected under [place] law. [place] law prohibits you from making any further disclosure of this information unless further disclosure is expressly permitted by the written consent of the person to whom it pertains or is authorized by law. A general authorization for the release of medical or other information is not sufficient for this purpose. Hospital accepts no responsibility if the information is made available to any other person, INCLUDING THE PATIENT. Interpretation Summary * Name: ENRIQUE PAT Study Date: 11/18/2016 12:44 PM BP: 112/65 mmHg * Patient Location: .[id number]\W255\S\2 HR: 60 * : 1945 (M/d/yyy) Gender: Male Height: 72 in * Age: 71 yrs Ethnicity: CA Weight: 158 lb * Ordering Physician: Aj Prescott * Performed By: Nelida Rubi * * Reason For Study: STAPH BACTEREMIA * BSA: 1.9 m2 * -- Conclusions -- * A tricuspid valve vegetation cannot be excluded. * Significant tricuspid regurgitation is absent. * There is an echodensity noted on the aortic valve. * Appearance favors aortic valve sclerosis, but vegetation cannot be excluded. * The left ventricular wall motion is normal. * The LV Ejection Fraction = 55-60%. * If clinical suspicion for endocarditis remains high, consider ANDREWS. Procedure Details * A complete two-dimensional transthoracic echocardiogram was performed (2D, M-mode, Doppler and color flow Doppler). * A contrast injection of Definity was performed to improve assessment of LV function. * Contrast was injected into an intravenous site in the left arm. * One vial of Definity ultrasound contrast was diluted in normal saline to a total volume of 10 ml. A total of '3' ml of solution was administered during imaging. * Lot # [id number] of Definity utilized for procedure. * Expiration date 12/12. * The attending nurse who injected the contrast agent was GONZALO FIGUEROA RN. Left Ventricle * The left ventricle is normal in size. * There is normal left ventricular wall thickness. * Left ventricular systolic function is normal. * Ejection Fraction = 55-60%. * The left ventricular wall motion is normal. Right Ventricle * The right ventricle is normal size. * The right ventricular systolic function is normal as assessed by tricuspid annular plane systolic excursion (TAPSE) (normal >1.5 cm). Atria * The left atrial size is normal. * Right atrial size is normal. * There is no evidence of atrial septal defect, but resolution does not allow assessment for a patent foramen ovale. Mitral Valve * The mitral valve is normal. * There is no mitral valve stenosis. * Significant mitral regurgitation is absent. Tricuspid Valve * A tricuspid valve vegetation cannot be excluded. * There is no tricuspid stenosis. * Significant tricuspid regurgitation is absent. * Doppler findings do not suggest pulmonary hypertension. Aortic Valve * The aortic valve is trileaflet. * There is an echodensity noted on the aortic valve. Appearance favors aortic valve sclerosis, but vegetation cannot be excluded. * Aortic stenosis is absent. * There is no significant aortic regurgitation. Pulmonic Valve * The pulmonary valve is not well seen, but the Doppler examination is normal without significant regurgitation or stenosis. Great Vessels * The aortic root and proximal ascending aorta are normal sized. Pericardium/Pleural * There is no pericardial effusion. * There is an echodensity in the pericardial space consistent with pericardial fat. Great Vessels * Normal inferior vena cava diameter and respiratory variation suggests normal central venous pressure. Left Ventricular Diastolic Function * Grade I diastolic dysfunction, (abnormal relaxation pattern). MMode 2D Measurements and Calculations IVSd 1.0 cm IVSs 1.8 cm LVIDd 3.9 cm LVIDs 2.4 cm LVPWd 0.87 cm LVPWs 1.3 cm IVS/LVPW 1.2 FS 38.6 % EDV(Teich) 65.7 ml ESV(Teich) 19.9 ml EF(Teich) 69.6 % EDV(cubed) 59.1 ml ESV(cubed) 13.6 ml EF(cubed) 76.9 % % IVS thick 75.2 % % LVPW thick 48.2 % LV mass(C)d 110.9 grams LV mass(C)dI 57.6 grams/m\S\2 LV mass(C)s 122.7 grams LV mass(C)sI 63.7 grams/m\S\2 CO(Teich) 2.9 l/min CI(Teich) 1.5 l/min/m\S\2 SV(Teich) 45.7 ml SI(Teich) 23.7 ml/m\S\2 CO(cubed) 2.9 l/min CI(cubed) 1.5 l/min/m\S\2 SV(cubed) 45.4 ml SI(cubed) 23.6 ml/m\S\2 ACS 1.3 cm asc Aorta Diam 3.6 cm LVOT diam 1.9 cm LVOT area 2.7 cm\S\2 LVAd ap4 30.9 cm\S\2 LVLd ap4 8.0 cm EDV(MOD-sp4) 97.6 ml LVAs ap4 15.9 cm\S\2 LVLs ap4 6.6 cm ESV(MOD-sp4) 31.6 ml EF(MOD-sp4) 67.6 % LVAd ap2 25.5 cm\S\2 LVLd ap2 7.2 cm EDV(MOD-sp2) 74.6 ml LVAs ap2 13.8 cm\S\2 LVLs ap2 6.5 cm ESV(MOD-sp2) 24.2 ml EF(MOD-sp2) 67.6 % CO(MOD-sp4) 4.2 l/min CI(MOD-sp4) 2.2 l/min/m\S\2 SV(MOD-sp4) 66.0 ml SI(MOD-sp4) 34.2 ml/m\S\2 CO(MOD-sp2) 3.2 l/min CI(MOD-sp2) 1.6 l/min/m\S\2 SV(MOD-sp2) 50.4 ml SI(MOD-sp2) 26.2 ml/m\S\2 Doppler Measurements and Calculations MV E max nadja 76.2 cm/sec MV A max nadja 78.6 cm/sec MV E/A 0.97 MV dec time 0.30 sec Ao V2 max 72.9 cm/sec Ao max PG 2.1 mmHg Ao max PG (full) -1.49 mmHg DAYSI(V,A) 3.5 cm\S\2 DAYSI(V,D) 3.5 cm\S\2 LV V1 max PG 3.6 mmHg LV V1 max 95.1 cm/sec PA V2 max 57.7 cm/sec PA max PG 1.3 mmHg
--- NOTE | 2016-11-18 14:57 | Progress Note ---
Internal Med Progress Note Date of Service: Nov 18, 2016. Provider Documentation: SUBJECTIVE: resting comfortably alert and oriented x 1 seems comfortable denies any complaints id not eat much for breakfast as per nursing staff afebrile OBJECTIVE: Vital Signs-as noted below Exam: General-alert and oriented x 1. Not in distress ENT-normal hearing Neck-no neck masses Lungs-cta b/l no wheezing or crackles Heart-s1 and s2 heard regular no murmurs Abdomen-soft bowel sounds present nontender no distension Extremities-no edema no erythema Neuro-alert and oriented moves extremities Lab data as noted below. ASSESSMENT & PLAN: This is a 71-year-old snf patient with hx of dementia and oriented to name only who presents with DKA and elevated lactic acid. Lactic acidosis resolved as DKA resolved. He was also empirically placed on iv vanco and Zosyn. One bottle blood cx growing Staph aureus and streptococcus, and urine cx growing enterococcus. 2D echo possible vegetations. Plan for ANDREWS early next week and ID consult.Hemodynamically stable. Continuing current abx. 1. Diabetic ketoacidosis. Improved with insulin drip protocol and aggressive fluids currently on Lantus and ISS appreciate pharmacy help hba1c 8.6 119/102/99/91 will monitor Metabolic acidosis, elevated lactic acidosis most likely secondary to diabetic ketoacidosis. Management done as above.Started On empiric antibiotics, IV Zosyn and vancomycin #4 . Resolved ARF resolved Electrolyte abnormalities will replace Possible sepsis? Bacteremia UTI Urine growing enterococcus One bottle blood cx growing staph aureus and streptococcus on iv abx as above will f/u echo for bacteremia with staph Echo done today showing possible tricuspid and aortic valve vegetation(d/w cardiology) will plan for ANDREWS early next week when patient more stable will consult ID for further recommendations Mild elevation of troponin from above asymptomatic f/u trend-trending down History of coronary artery. Continue aspirin, beta kenton and statin. Currently seems to be stable. History of hyperlipidemia. Continue statin. History of decubitus ulcers. , antibiotics as above. Wound consult Peripheral vascular disease on aspirin. Depression on Remeron and Celexa. Gastroesophageal reflux disease on PPI. History of dementia. Will monitor for delirium. Stable Nutrition: seen by speech and recommends: 1. Dental soft and thin liquids. 2. Aspiration precautions: Patient should be seated fully upright during and for 30 minutes after meal. Straws OK. Take small bites and sips. Alternate solids and liquids. Hypertension on Lopressor. We will follow the blood pressure. History of cerebrovascular accident on aspirin and statin. Blood pressure control. Deep venous thrombosis prophylaxis. SCDs and heparin subcutaneous. DISPOSITION to be determined social service for d/c planning back to snf when stable Tried to call sister who is POA for updates and left call back number on the voice mail. Vital Signs: Date Time Temp Pulse Resp B/P (MAP) Pulse Ox O2 Delivery O2 Flow Rate FiO2 11/18/16 16:00 Room Air 11/18/16 15:26 36.5 59 18 119/72 (88) 98 Room Air 11/18/16 08:00 Room Air 11/18/16 07:22 36.5 60 16 112/65 (81) 98 Room Air 11/18/16 00:00 Room Air 11/17/16 23:39 36.9 61 16 111/65 (80) 97 Room Air 11/17/16 23:04 36.9 63 20 105/63 (77) 98 Room Air Lab Results: Results Past 24 Hours Test 11/18/16 02:14 11/18/16 06:45 11/18/16 07:33 11/18/16 11:43 Range/Units Bedside Glucose 119 99 91 70-99 mg/dl White Blood Count 7.17 4.8-10.8 K/uL Red Blood Count 3.71 4.7-6.1 M/uL Hemoglobin 11.7 14.0-18.0 g/dL Hematocrit 34.5 42-52 % Mean Corpuscular Volume 93.0 80-100 fL Mean Corpuscular Hemoglobin 31.5 25-34 pg Mean Corpuscular Hemoglobin Concent 33.9 32-36 g/dl Platelet Count 334 130-400 K/uL Mean Platelet Volume 9.3 7.4-10.4 fL Neutrophils (%) (Auto) 47.0 % Lymphocytes (%) (Auto) 33.6 % Monocytes (%) (Auto) 9.6 % Eosinophils (%) (Auto) 8.9 % Basophils (%) (Auto) 0.8 % Neutrophils # (Auto) 3.36 1.4-6.5 K/uL Lymphocytes # (Auto) 2.41 1.2-3.4 K/uL Monocytes # (Auto) 0.69 0.11-0.59 K/uL Eosinophils # (Auto) 0.64 0-0.5 K/uL Basophils # (Auto) 0.06 0-0.2 K/uL RDW Standard Deviation 45.7 36.4-46.3 fL RDW Coefficient of Variation 13.3 11.5-14.5 % Immature Granulocyte % (Auto) 0.1 % Immature Granulocyte # (Auto) 0.01 0.00-0.02 K/uL Sodium Level 144 136-145 mmol/L Potassium Level 3.9 3.5-5.1 mmol/L Chloride Level 110 98-107 mmol/L Carbon Dioxide Level 25 21-32 mmol/L Anion Gap 9.0 3-11 mmol/L Blood Urea Nitrogen 5 7-18 mg/dl Creatinine 0.71 0.60-1.40 mg/dl Est Creatinine Clear Calc Drug Dose 98.2 ml/min Estimated GFR () 110.2 Estimated GFR (Non- 95.1 BUN/Creatinine Ratio 6.5 10-20 Random Glucose 102 70-99 mg/dl Calcium Level 8.2 8.5-10.1 mg/dl Magnesium Level 1.9 1.8-2.4 mg/dl Test 11/18/16 16:28 Range/Units Bedside Glucose 250 70-99 mg/dl
[2016-11-18 15:26] VITALS: BP 119/72; PULSE 59; TEMP 36.5; O2SAT 98
[2016-11-18] MEDS: MIRTAZAPINE TAB 15 MG TAB PO SCH (20:40)
[2016-11-18] MEDS: PRAVASTATIN SOD 40 MG TAB PO SCH (20:47)
[2016-11-18] MEDS ORDERED: INSULIN GLARGINE SOLOSTAR 100 UNITS/ML 3 ML PEN SC SCH ×2 (21:00)
[2016-11-18 23:25] VITALS: BP 106/67; PULSE 57; TEMP 36.5; O2SAT 96
[2016-11-19] MEDS: PIPERACILL/TAZOBAC IV 3.375 GM in DEXTROSE 5% 100ML 100 ML IV SCH ×4 (00:32→23:35)
[2016-11-19] MEDS: NSS + 20MEQ KCL 1000ML 1,000 ML IV SCH ×2 (00:32→13:33)
[2016-11-19] MEDS: VANCOMYCIN INJ 1,000 MG in SODIUM CHLORIDE 0.9% 250ML 250 ML IV SCH ×3 (00:35→23:35)
[2016-11-19] MEDS: INSULIN ASPART 100 UNITS/ML 3 ML PEN SC SCH ×4 (06:30→20:39)
[2016-11-19 06:45] LABS: BASO % 0.7 %; BASO ABS # 0.05 K/uL (0-0.2); COMPLETE YES; EOS % 9.6 %; HEMATOCRIT 34.2 % (42-52); LYMPH % 27.5 %; MEAN CELL VOLUME 92.7 fL (80-100); MEAN CORPUSCULAR HEMOGLOBIN 31.4 pg (25-34); MEAN CORPUSCULAR HGB CONC 33.9 g/dl (32-36); MONO % 9.7 %; NEUT % 52.5 %; PLATELET COUNT 325 K/uL (130-400); RED BLOOD COUNT 3.69 M/uL (4.7-6.1)
[2016-11-19 07:06] LABS: BUN/CREATININE RATIO 6.7 (10-20); CREATININE 0.69 mg/dl (0.60-1.40); MAGNESIUM 1.9 mg/dl (1.8-2.4); POTASSIUM 3.6 mmol/L (3.5-5.1)
[2016-11-19 07:30] LABS: CALCIUM 8.4 mg/dl (8.5-10.1)
[2016-11-19 07:41] VITALS: BP 104/44; PULSE 62; TEMP 36.6; O2SAT 97
[2016-11-19 07:59] VITALS: BP 118/51
[2016-11-19] MEDS: LANOLIN/PETROLATUM 30 GM TUBE EXT SCH ×6 (08:02→23:36)
[2016-11-19] MEDS: POT PHOSPHATE MONOBASIC W/ SOD TAB PO SCH ×4 (08:08→20:01)
[2016-11-19] MEDS: HEPARIN SOD 5000 UNIT/0.5 ML CARP SQ SCH ×2 (08:08→20:38)
[2016-11-19] MEDS: METOPROLOL TARTRATE 25 MG TAB PO SCH ×2 (08:08→20:01)
[2016-11-19] MEDS: ASPIRIN 81 MG ECTAB PO SCH (08:10)
[2016-11-19] MEDS: CITALOPRAM 20 MG TAB PO SCH (08:10)
[2016-11-19] MEDS: MULTIVITAMIN TAB PO SCH (08:10)
[2016-11-19] MEDS ORDERED: VANCOMYCIN TROUGH SCH (08:30)
[2016-11-19] MEDS: PANTOprazole INJ 40 MG in SYRINGE 0 ML IV SCH (10:53)
--- NOTE | 2016-11-19 12:03 | Pharmacy Progress Note ---
Glycemic Control Progress Note Date of Service Nov 19, 2016. Scope Glycemic Pharmacist consulted for glycemic control to write orders per [facility] inpatient glycemic control protocol. Objective Accuchecks BSG (last 24hrs): Test 11/18/16 16:28 11/18/16 20:37 11/19/16 06:24 11/19/16 07:52 Bedside Glucose 250 mg/dl (70-99) 215 mg/dl (70-99) 85 mg/dl (70-99) Random Glucose 112 mg/dl (70-99) Test 11/19/16 11:24 Bedside Glucose 165 mg/dl (70-99) HbA1c: Test 11/16/16 03:55 Hemoglobin A1c 8.6 % (4.5-5.6) H Recent Pertinent Medications The patient is currently receiving: * Basal insulin: Lantus 20 units every 24 hours given at bedtime * Correctional Insulin: Novolog Correction per scale ACHS Goal Range: Low 110 mg/dL - High 140 mg/dL Correction Factor: 30 mg/dL/unit * Prandial insulin: Per carb ratio of 1 unit per 10 grams CHO consumed Outpatient Anti-Diabetic Meds Basal Insulin & Bolus Insulin Total daily dose ~ 62 units/day Assessment & Plan ASSESSMENT: * See progress note from 11/16 for more background info, in short: * Pt receiving SQ basal bolus insulin regimen for hyperglycemia secondary to baseline DM (on SQ basal bolus regimen as an outpatient),stress/infection * Patient is currently receiving an average of 30 units of insulin per day * 22 units of basal insulin {outpatient basal insulin dosing is 30 units, lower dose in house for dec PO) * 8 units of prandial/correctional insulin * BSGs 99, 91, 250, 215, 85, 165 over the past 24hrs * Changes needed to insulin regimen: * AM Fasting BSG = 99, 85 mg/dl today. This is slightly below goal range for patient based on inpatient targets and co-morbidities. Therefore Basal insulin needs decreased. PO intake minimal * Post-prandial BSGs are elevated/rise throughout the day @ 250, 215. Will tighten CF/CR * Total daily dose = ~30 units. decrease in total daily dose as compared to outpatient dosing is needed secondary to decreased PO intake PLAN FOR INPATIENT GLYCEMIC CONTROL: * Basal insulin: Decrease * Lantus 20 units SQ HS * Bolus insulin: tighten parameters * NovoLog per scale ACHS or Q6hrs while NPO * Goal Range: Low 110 mg/dL - High 140 mg/dL * Correction Factor: 25 mg/dL/unit * Nutritional / Prandial insulin per carb ratio of 1 unit per 9 grams CHO consumed * Please note that the plan above was derived based on current level of insulin resistance and hospital stress. These recommendations are appropriate for inpatient admission only. Plan of care upon discharge will need to be reassessed to avoid potential outpatient hypo/hyperglycemia. Thank you.
[2016-11-19 15:40] VITALS: BP 107/65; PULSE 69; TEMP 36.6; O2SAT 97
--- NOTE | 2016-11-19 15:54 | Pharmacy Progress Note ---
Pharmacy Abx Dose Short Note Date of Service Nov 19, 2016. Assessment & Plan Assessment 71 year old male receiving Vancomycin for treatment of UTI and bacteremia Day # 10/08 of antimicrobial therapy. Plan Vancomycin * Trough level of 17 mcg/mL is therapeutic. * Continue dose of 1000 mg (~14mg/kg) IV every 12 hours * Goal trough level for UTI and bacteremia : 15 to 20 mcg/mL * Trough level ordered for: 11/22/16 ~30 minutes before the 1200 dose in order to ensure therapeutic concentrations without causing Vancomycin accumulation and toxicity. Pharmacy will continue to follow and will adjust dose/frequency as necessary. Thank you.
[2016-11-19 16:00] VITALS: O2SAT 97
[2016-11-19] MEDS: MIRTAZAPINE TAB 15 MG TAB PO SCH (20:02)
[2016-11-19] MEDS: PRAVASTATIN SOD 40 MG TAB PO SCH (20:02)
[2016-11-19] MEDS: INSULIN GLARGINE SOLOSTAR 100 UNITS/ML 3 ML PEN SC SCH (20:38)
--- NOTE | 2016-11-19 22:16 | Progress Note ---
Medicine Progress Note Date & Time of Visit: Nov 19, 2016 at 16:00 . Subjective No fever. Denies cough or SOB. No chest pain. No nausea, vomiting, diarrhea. No urinary symptoms. . Objective Last 8 Hrs Date Time Temp Pulse Resp B/P (MAP) Pulse Ox O2 Delivery O2 Flow Rate FiO2 11/19/16 20:00 Room Air 11/19/16 16:00 97 Room Air 11/19/16 15:40 36.6 69 16 107/65 (79) 97 Room Air Physical Exam: General- appears to be chronically-ill, no acute distress Neck- Lungs- clear Heart- RRR Abdomen- + BS, soft, nontender Extremities- waffle boots on; trace pretibial edema; no calf tenderness Neuro- somnolent, arousable; oriented to person and year, but not date . Laboratory Results: Last 24 Hours Test 11/19/16 06:24 11/19/16 07:52 11/19/16 11:24 11/19/16 11:26 White Blood Count 6.90 K/uL Red Blood Count 3.69 M/uL Hemoglobin 11.6 g/dL Hematocrit 34.2 % Mean Corpuscular Volume 92.7 fL Mean Corpuscular Hemoglobin 31.4 pg Mean Corpuscular Hemoglobin Concent 33.9 g/dl Platelet Count 325 K/uL Mean Platelet Volume 10.0 fL Neutrophils (%) (Auto) 52.5 % Lymphocytes (%) (Auto) 27.5 % Monocytes (%) (Auto) 9.7 % Eosinophils (%) (Auto) 9.6 % Basophils (%) (Auto) 0.7 % Neutrophils # (Auto) 3.62 K/uL Lymphocytes # (Auto) 1.90 K/uL Monocytes # (Auto) 0.67 K/uL Eosinophils # (Auto) 0.66 K/uL Basophils # (Auto) 0.05 K/uL RDW Standard Deviation 44.0 fL RDW Coefficient of Variation 13.0 % Immature Granulocyte % (Auto) 0.0 % Immature Granulocyte # (Auto) 0.00 K/uL Sodium Level 144 mmol/L Potassium Level 3.6 mmol/L Chloride Level 111 mmol/L Carbon Dioxide Level 26 mmol/L Anion Gap 7.0 mmol/L Blood Urea Nitrogen 5 mg/dl Creatinine 0.69 mg/dl Est Creatinine Clear Calc Drug Dose 101.0 ml/min Estimated GFR () 111.5 Estimated GFR (Non- 96.2 BUN/Creatinine Ratio 6.7 Random Glucose 112 mg/dl Calcium Level 8.4 mg/dl Magnesium Level 1.9 mg/dl Bedside Glucose 85 mg/dl 165 mg/dl Vancomycin Level Trough 17.0 mcg/ml Test 11/19/16 16:43 11/19/16 19:55 Bedside Glucose 223 mg/dl 217 mg/dl Assessment & Plan SEPSIS Met criteria for sepsis per 2001 definition and current CMS guidelines. WBC was 19,000. Pulse was 131. Initial lactate was 8.3. Hemodynamically stable in ED. Blood cultures and urine culture obtained. Received broad spectrum antibiotic coverage with piperacillin / tazobactam + vancomycin. Blood cultures growing Staph aureus with 2 different sensitivity profiles- MRSA + MSSA as well as Enterococcus faecalis. Urine culture growing Enterococcus faecalis. ? source(s). No apparent valvular vegetations per transthoracic echo. Would be ideal to check ANDREWS, but patient at relatively high risk for complications from invasive procedures. ID consulted. DM / DKA Treated with insulin infusion. Transitioned to SQ insulin. FBS today = -1-1-4- 85. [corrected TRISH 11/21/16 05:47] MOA Serum creatinine on admission was 1.7. Acute kidney injury probably due to sepsis and volume depletion. Creatinine today = 0.69. CORONARY ARTERY DISEASE No anginal symptoms. Continue aspirin and metoprolol. HYPERTENSION Continue metoprolol. VTE PROPHYLAXIS SQ heparin. DISPOSITION Expected return to [facility]. . Current Inpatient Medications: Current Inpatient Medications Medications (Trade) Dose Ordered Sig/[facility] Route Start Time Stop Time Status Last Admin Dose Admin Glucose (Glucose 40% Gel) UD PRN PO 11/15/16 11:00 12/15/16 10:59 Glucose (Glucose Chew Tab) 1 tabs UD PRN PO 11/15/16 11:00 12/15/16 10:59 Dextrose (Dextrose 50% 50ML Syringe) 50 ml UD PRN IV 11/15/16 11:00 12/15/16 10:59 11/15/16 13:40 25 ML Glucagon (Glucagon Inj) 1 mg UD PRN SQ 11/15/16 11:00 12/15/16 10:59 Heparin Sodium (Porcine) (Heparin Sq 5000 Unit/0.5ml) 5,000 unit Q12H SQ 11/15/16 21:00 12/15/16 20:59 11/19/16 20:38 5,000 UNIT Lorazepam (Ativan Tab) 0.5 mg Q4H PRN PO 11/15/16 11:00 12/15/16 10:59 Pantoprazole Sodium 40 mg/ Syringe 10 ml @ 5 mls/min DAILY@1100 IV 11/16/16 11:00 12/16/16 10:59 11/19/16 10:53 5 MLS/MIN Morphine Sulfate (MoRPHine SULFATE INJ) 2 mg Q2H PRN IV 11/15/16 11:00 11/29/16 10:59 Aspirin (Ecotrin Tab) 81 mg QAM PO 11/16/16 09:00 12/16/16 08:59 11/19/16 08:10 81 MG Bisacodyl (Dulcolax Supp) 10 mg UD PRN WI 11/15/16 11:00 12/15/16 10:59 Metoprolol Tartrate (Lopressor Tab) 25 mg BID PO 11/15/16 21:00 12/15/16 20:59 11/19/16 20:01 25 MG Multivitamins (Multivitamin Tab) 1 tab DAILY PO 11/16/16 09:00 12/16/16 08:59 11/18/16 07:18 1 TAB Nitroglycerin (Nitrostat Tab) 0.4 mg UD PRN UT 11/15/16 11:00 12/15/16 10:59 Pravastatin Sodium (Pravachol Tab) 40 mg HS PO 11/15/16 21:00 12/15/16 20:59 11/19/16 20:02 40 MG Sodium Biphosphate/ Sodium Phosphate (Fleet Enema) 30 ml UD PRN WI 11/15/16 11:00 12/15/16 10:59 Multi-Ingredient Ointment (Desitin Oint) QS EXT 11/15/16 16:00 12/15/16 15:59 11/19/16 15:54 1 GM Miscellaneous Information (Consult Glycemic Management Pharmacy) 1 ea UD PRN N/A 11/15/16 11:00 12/15/16 10:59 Piperacillin Sod/ Tazobactam Sod 3.375 gm/Dextrose 115 ml @ 28.75 mls/ hr Q8H IV 11/15/16 16:00 11/29/16 15:59 11/19/16 15:54 28.75 MLS/HR Citalopram Hydrobromide (celeXA TAB) 10 mg DAILY PO 11/16/16 09:00 12/16/16 08:59 11/18/16 07:18 10 MG Mirtazapine (Remeron Tab) 15 mg HS PO 11/15/16 21:00 12/15/16 20:59 11/19/16 20:02 15 MG Vancomycin HCl (Consult) 1 ea UD PRN N/A 11/15/16 11:45 12/15/16 11:44 Piperacillin Sod/ Tazobactam Sod (Consult) 1 ea UD PRN N/A 11/15/16 11:45 12/15/16 11:44 Insulin Aspart (novoLOG ASPART) SLIDING SCALE ACHS SC 11/15/16 17:15 12/15/16 17:14 11/19/16 20:39 3 UNITS Potassium/ Phosphorus/Sodium (Phospha 250 Neutral 155-852-130 Mg) 1 tab QID PO 11/16/16 13:00 12/16/16 12:59 11/19/16 20:01 1 TAB Potassium Chloride/Sodium Chloride 1,000 ml @ 75 mls/hr [id number] IV 11/16/16 19:30 12/16/16 19:29 11/19/16 13:33 75 MLS/HR Vancomycin HCl 1000 mg/Sodium Chloride 270 ml @ 125 mls/hr Q12H IV 11/17/16 21:00 11/30/16 03:59 11/19/16 11:56 125 MLS/HR Insulin Glargine (Lantus Solostar Pen) 20 unit HS SC 11/19/16 21:00 12/19/16 20:59 11/19/16 20:38 20 UNIT
[2016-11-19 23:12] VITALS: BP 98/61; PULSE 59; TEMP 37; O2SAT 98
[2016-11-20] MEDS: NSS + 20MEQ KCL 1000ML 1,000 ML IV SCH ×2 (04:16→17:14)
[2016-11-20] MEDS: INSULIN ASPART 100 UNITS/ML 3 ML PEN SC SCH ×4 (06:30→21:12)
[2016-11-20 06:53] LABS: BASO % 0.6 %; BASO ABS # 0.05 K/uL (0-0.2); COMPLETE YES; EOS % 8.5 %; HEMATOCRIT 37.1 % (42-52); IG% 0.2 %; LYMPH % 21.6 %; LYMPH ABS # 1.92 K/uL (1.2-3.4); MEAN CELL VOLUME 93.2 fL (80-100); MEAN CORPUSCULAR HEMOGLOBIN 30.4 pg (25-34); MEAN CORPUSCULAR HGB CONC 32.6 g/dl (32-36); MEAN PLATELET VOLUME 9.9 fL (7.4-10.4); MONO % 9.7 %; NEUT % 59.4 %; PLATELET COUNT 391 K/uL (130-400); RED BLOOD COUNT 3.98 M/uL (4.7-6.1); WHITE BLOOD COUNT 8.87 K/uL (4.8-10.8)
[2016-11-20 07:24] LABS: BUN/CREATININE RATIO 5.9 (10-20); CALCIUM 8.8 mg/dl (8.5-10.1); CREATININE 0.91 mg/dl (0.60-1.40); MAGNESIUM 1.9 mg/dl (1.8-2.4); POTASSIUM 3.7 mmol/L (3.5-5.1)
[2016-11-20 07:26] VITALS: BP 131/61; PULSE 68; TEMP 36.7; O2SAT 98
[2016-11-20] MEDS: LANOLIN/PETROLATUM 30 GM TUBE EXT SCH ×6 (08:06→23:56)
[2016-11-20] MEDS: CITALOPRAM 20 MG TAB PO SCH (08:07)
[2016-11-20] MEDS: HEPARIN SOD 5000 UNIT/0.5 ML CARP SQ SCH ×3 (08:12→21:12)
[2016-11-20] MEDS: POT PHOSPHATE MONOBASIC W/ SOD TAB PO SCH ×4 (08:13→21:05)
[2016-11-20] MEDS: METOPROLOL TARTRATE 25 MG TAB PO SCH ×2 (08:14→21:05)
[2016-11-20] MEDS: ASPIRIN 81 MG ECTAB PO SCH (08:14)
[2016-11-20] MEDS: MULTIVITAMIN TAB PO SCH (08:14)
[2016-11-20] MEDS: PIPERACILL/TAZOBAC IV 3.375 GM in DEXTROSE 5% 100ML 100 ML IV SCH ×3 (08:16→23:57)
[2016-11-20] MEDS: PANTOprazole INJ 40 MG in SYRINGE 0 ML IV SCH (10:51)
--- NOTE | 2016-11-20 11:00 | Progress Note ---
Progress Note Date of Service Nov 20, 2016. Progress Note ID Consult Dictated # [id number] A/P: 1. Polymicrobial Septicemia - ? gu source, ? wound -Continue vanco, will need 14 days from first negative (11/17), echo negative -Will stop zosyn -ok for picc line -thank you
--- NOTE | 2016-11-20 11:14 | INFECT. DISEASE CONSULTATION ---
DATE OF CONSULTATION: 11/20/2016 DATE OF CONSULTATION: 11/20/2016. REQUESTING PHYSICIAN: Dr. Harris. HISTORY OF PRESENT ILLNESS: This is a 71-year-old gentleman who has multiple comorbidities who was admitted to the hospital from [facility] secondary to hyperglycemia and underlying confusion. As part of his initial workup, blood cultures were obtained and grew MRSA, MSSA and enterococcus. Urine culture done in the ER also grew enterococcus. He has been on vancomycin and Zosyn and tolerating these well. He has been afebrile. His white blood cell count is currently 8.8. Repeat blood cultures were obtained on the and are negative. He remains on broad-spectrum antibiotics but appears to be tolerating them well. On my examination today, he denies any chest pain, cough, shortness of breath, nausea, vomiting or diarrhea. He states his appetite is stable. He denies any joint or muscle pain. He appears comfortable. All remaining review of systems are unremarkable. ALLERGIES: He has no known drug allergies. PAST MEDICAL HISTORY: Significant for history of CVA, type 2 diabetes, high cholesterol, GERD, hypertension, decubitus ulcers, coronary artery disease, anemia, depression, cataracts with left eye blindness, peripheral vascular disease, macular degeneration, dementia. PAST SURGICAL HISTORY: Significant for tonsillectomy and adenoidectomy. FAMILY HISTORY: Noncontributory. SOCIAL HISTORY: Negative for tobacco use, drug use and alcohol use. He currently lives at [facility]. CURRENT MEDICATIONS: Include insulin, vancomycin, potassium, Protonix, aspirin, multivitamins, Celexa, subQ heparin, Lopressor, Pravachol, Remeron, NovoLog, Zosyn, Ativan, morphine, Dulcolax, Fleet enema. PHYSICAL EXAMINATION: VITAL SIGNS: She is afebrile, pulse 68, respiratory rate 16, blood pressure is 131/61, oxygen saturation is 98% on room air. GENERAL: He is awake, alert and oriented. He is in no acute distress. HEAD, EYES, EARS, NOSE, AND THROAT: Mucous membranes are dry. Extraocular muscles are intact; however, there is blindness in the left eye. HEART: Regular. I do not auscultate a murmur. LUNGS: Clear. ABDOMEN: Soft. EXTREMITIES: There is no lower extremity edema. SKIN: Without rash. LABORATORY STUDIES: CBC today reveals a white blood cell count of 8.8, down from 18.8 on admission, hemoglobin is 12.1 and platelets are 391. Chemistry panel reveals a sodium of 144, potassium 3.7, chloride 126, BUN 5, creatinine 0.9, glucose is 114. LFTs were normal on admission. Urinalysis on admission was unremarkable. Most recent vancomycin trough yesterday is 17, flu swab was negative. Urine culture from the grew Enterococcus faecalis. Blood cultures from the grew MRSA, MSSA and Enterococcus faecalis in 1 of 2 sets. Repeat blood cultures on the are no growth to date x2 sets. Most recent chest x-ray was done on the and did not show any acute abnormalities. Echocardiogram was performed during this admission and was negative for vegetation. ASSESSMENT AND PLAN: Staph septicemia with unclear source, question wound versus urine, although only enterococcus grew from the urine. In any event, this patient has a negative echocardiogram and repeat blood cultures are negative, I would recommend continuing vancomycin for 14 days from the first negative blood culture on the . A PICC line can be placed if needed. Zosyn will be discontinued. Thank you for this consultation.
[2016-11-20] MEDS: VANCOMYCIN INJ 1,000 MG in SODIUM CHLORIDE 0.9% 250ML 250 ML IV SCH ×2 (11:44→23:57)
--- NOTE | 2016-11-20 12:54 | Pharmacy Progress Note ---
Glycemic Control Progress Note Date of Service Nov 20, 2016. Scope Glycemic Pharmacist consulted for glycemic control to write orders per [facility] inpatient glycemic control protocol. Objective Accuchecks BSG (last 24hrs): Test 11/19/16 16:43 11/19/16 19:55 11/20/16 06:06 11/20/16 07:34 Bedside Glucose 223 mg/dl (70-99) 217 mg/dl (70-99) 114 mg/dl (70-99) Random Glucose 116 mg/dl (70-99) Test 11/20/16 11:14 Bedside Glucose 239 mg/dl (70-99) HbA1c: Test 11/16/16 03:55 Hemoglobin A1c 8.6 % (4.5-5.6) H Recent Pertinent Medications The patient is currently receiving: * Basal insulin: Lantus 20 units every 24 hours * Correctional Insulin: Novolog Correction per scale ACHS Goal Range: Low 110 mg/dL - High 140 mg/dL Correction Factor: 25 mg/dL/unit * Prandial insulin: Per carb ratio of 1 unit per 9 grams CHO consumed Outpatient Anti-Diabetic Meds Basal Insulin & Bolus Insulin Assessment & Plan ASSESSMENT: * See progress note from 11/16 for more background info, in short: * Pt receiving SQ basal bolus insulin regimen for hyperglycemia secondary to baseline DM (on SQ basal bolus regimen as an outpatient),stress/infection * Patient is currently receiving an average of 30 units of insulin per day * 20 units of basal insulin {outpatient basal insulin dosing is 30 units, lower dose in house for dec PO) * 10 units of prandial/correctional insulin * BSGs 85,165,223,217 over the past 24hrs * Changes needed to insulin regimen: * AM Fasting BSG = 114 mg/dl today. Within goal range. No changes necessary. * Post-prandial BSGs are elevated/rise throughout the day. Will continue to tighten CF/CR. * Total daily dose = ~30 units. decrease in total daily dose as compared to outpatient dosing is needed secondary to decreased PO intake PLAN FOR INPATIENT GLYCEMIC CONTROL: * Basal insulin: Continue * Lantus 20 units SQ HS * Bolus insulin: tighten parameters * NovoLog per scale ACHS or Q6hrs while NPO * Goal Range: Low 110 mg/dL - High 140 mg/dL * Correction Factor: 15 mg/dL/unit * Nutritional / Prandial insulin per carb ratio of 1 unit per 6 grams CHO consumed * Please note that the plan above was derived based on current level of insulin resistance and hospital stress. These recommendations are appropriate for inpatient admission only. Plan of care upon discharge will need to be reassessed to avoid potential outpatient hypo/hyperglycemia. Thank you.
[2016-11-20 21:02] VITALS: BP 112/66; PULSE 84
[2016-11-20] MEDS: PRAVASTATIN SOD 40 MG TAB PO SCH (21:04)
[2016-11-20] MEDS: MIRTAZAPINE TAB 15 MG TAB PO SCH (21:06)
[2016-11-20] MEDS: INSULIN GLARGINE SOLOSTAR 100 UNITS/ML 3 ML PEN SC SCH (21:12)
--- NOTE | 2016-11-20 22:21 | Progress Note ---
Medicine Progress Note Date & Time of Visit: Nov 20, 2016 at 18:40 . Subjective No fever. No cough or SOB. No chest pain. No nausea, vomiting, diarrhea. No urinary symptoms. . Objective Last 8 Hrs Date Time Temp Pulse Resp B/P (MAP) Pulse Ox O2 Delivery O2 Flow Rate FiO2 11/20/16 21:02 84 112/66 (81) 11/20/16 15:25 Room Air Physical Exam: General- no acute distress Lungs- clear Heart- RRR Abdomen- + BS, soft, nontender Extremities- trace pretibial edema; no calf tenderness Neuro- alert, knows year, but not date or president . Laboratory Results: Last 24 Hours Test 11/20/16 06:06 11/20/16 07:34 11/20/16 11:14 11/20/16 16:40 White Blood Count 8.87 K/uL Red Blood Count 3.98 M/uL Hemoglobin 12.1 g/dL Hematocrit 37.1 % Mean Corpuscular Volume 93.2 fL Mean Corpuscular Hemoglobin 30.4 pg Mean Corpuscular Hemoglobin Concent 32.6 g/dl Platelet Count 391 K/uL Mean Platelet Volume 9.9 fL Neutrophils (%) (Auto) 59.4 % Lymphocytes (%) (Auto) 21.6 % Monocytes (%) (Auto) 9.7 % Eosinophils (%) (Auto) 8.5 % Basophils (%) (Auto) 0.6 % Neutrophils # (Auto) 5.27 K/uL Lymphocytes # (Auto) 1.92 K/uL Monocytes # (Auto) 0.86 K/uL Eosinophils # (Auto) 0.75 K/uL Basophils # (Auto) 0.05 K/uL RDW Standard Deviation 44.6 fL RDW Coefficient of Variation 13.1 % Immature Granulocyte % (Auto) 0.2 % Immature Granulocyte # (Auto) 0.02 K/uL Sodium Level 144 mmol/L Potassium Level 3.7 mmol/L Chloride Level 110 mmol/L Carbon Dioxide Level 26 mmol/L Anion Gap 8.0 mmol/L Blood Urea Nitrogen 5 mg/dl Creatinine 0.91 mg/dl Est Creatinine Clear Calc Drug Dose 76.6 ml/min Estimated GFR () 98.6 Estimated GFR (Non- 85.1 BUN/Creatinine Ratio 5.9 Random Glucose 116 mg/dl Calcium Level 8.8 mg/dl Magnesium Level 1.9 mg/dl Bedside Glucose 114 mg/dl 239 mg/dl 295 mg/dl Test 11/20/16 20:57 Bedside Glucose 227 mg/dl Assessment & Plan SEPSIS Met criteria for sepsis per 2001 definition and current CMS guidelines. WBC was 19,000. Pulse was 131. Initial lactate was 8.3. Hemodynamically stable in ED. Blood cultures and urine culture obtained. Received broad spectrum antibiotic coverage with piperacillin / tazobactam + vancomycin. Blood cultures growing Staph aureus with 2 different sensitivity profiles- MRSA + MSSA as well as Enterococcus faecalis. Urine culture growing Enterococcus faecalis. ? source(s). No apparent valvular vegetations per transthoracic echo. Would be ideal to check ANDREWS, but patient at relatively high risk for complications from invasive procedures. ID consulted. IV vancomycin x 14 days recommended. DM / DKA Treated with insulin infusion. Transitioned to SQ insulin. FBS today = 114. OMA Serum creatinine on admission was 1.7. Acute kidney injury probably due to sepsis and volume depletion. Creatinine today = 0.91. CORONARY ARTERY DISEASE No anginal symptoms. Continue aspirin and metoprolol. HYPERTENSION Continue metoprolol. VTE PROPHYLAXIS SQ heparin. DISPOSITION Expected return to [facility]. . Current Inpatient Medications: Current Inpatient Medications Medications (Trade) Dose Ordered Sig/Servando Route Start Time Stop Time Status Last Admin Dose Admin Glucose (Glucose 40% Gel) UD PRN PO 11/15/16 11:00 12/15/16 10:59 Glucose (Glucose Chew Tab) 1 tabs UD PRN PO 11/15/16 11:00 12/15/16 10:59 Dextrose (Dextrose 50% 50ML Syringe) 50 ml UD PRN IV 11/15/16 11:00 12/15/16 10:59 11/15/16 13:40 25 ML Glucagon (Glucagon Inj) 1 mg UD PRN SQ 11/15/16 11:00 12/15/16 10:59 Heparin Sodium (Porcine) (Heparin Sq 5000 Unit/0.5ml) 5,000 unit Q12H SQ 11/15/16 21:00 12/15/16 20:59 11/20/16 21:12 5,000 UNIT Lorazepam (Ativan Tab) 0.5 mg Q4H PRN PO 11/15/16 11:00 12/15/16 10:59 Morphine Sulfate (MoRPHine SULFATE INJ) 2 mg Q2H PRN IV 11/15/16 11:00 11/29/16 10:59 Aspirin (Ecotrin Tab) 81 mg QAM PO 11/16/16 09:00 12/16/16 08:59 11/19/16 08:10 81 MG Bisacodyl (Dulcolax Supp) 10 mg UD PRN PA 11/15/16 11:00 12/15/16 10:59 Metoprolol Tartrate (Lopressor Tab) 25 mg BID PO 11/15/16 21:00 12/15/16 20:59 11/20/16 21:05 25 MG Multivitamins (Multivitamin Tab) 1 tab DAILY PO 11/16/16 09:00 12/16/16 08:59 11/18/16 07:18 1 TAB Nitroglycerin (Nitrostat Tab) 0.4 mg UD PRN UT 11/15/16 11:00 12/15/16 10:59 Pravastatin Sodium (Pravachol Tab) 40 mg HS PO 11/15/16 21:00 12/15/16 20:59 11/20/16 21:04 40 MG Sodium Biphosphate/ Sodium Phosphate (Fleet Enema) 30 ml UD PRN PA 11/15/16 11:00 12/15/16 10:59 Multi-Ingredient Ointment (Desitin Oint) QS EXT 11/15/16 16:00 12/15/16 15:59 11/20/16 15:59 1 GM Miscellaneous Information (Consult Glycemic Management Pharmacy) 1 ea UD PRN N/A 11/15/16 11:00 12/15/16 10:59 Piperacillin Sod/ Tazobactam Sod 3.375 gm/Dextrose 115 ml @ 28.75 mls/ hr Q8H IV 11/15/16 16:00 11/29/16 15:59 11/20/16 15:59 28.75 MLS/HR Citalopram Hydrobromide (celeXA TAB) 10 mg DAILY PO 11/16/16 09:00 12/16/16 08:59 11/20/16 08:07 10 MG Mirtazapine (Remeron Tab) 15 mg HS PO 11/15/16 21:00 12/15/16 20:59 11/20/16 21:06 15 MG Vancomycin HCl (Consult) 1 ea UD PRN N/A 11/15/16 11:45 12/15/16 11:44 Piperacillin Sod/ Tazobactam Sod (Consult) 1 ea UD PRN N/A 11/15/16 11:45 12/15/16 11:44 Insulin Aspart (novoLOG ASPART) SLIDING SCALE ACHS SC 11/15/16 17:15 12/15/16 17:14 11/20/16 21:12 6 UNITS Potassium/ Phosphorus/Sodium (Phospha 250 Neutral 155-852-130 Mg) 1 tab QID PO 11/16/16 13:00 12/16/16 12:59 11/20/16 21:05 1 TAB Potassium Chloride/Sodium Chloride 1,000 ml @ 75 mls/hr [id number] IV 11/16/16 19:30 12/16/16 19:29 11/20/16 17:14 75 MLS/HR Vancomycin HCl 1000 mg/Sodium Chloride 270 ml @ 125 mls/hr Q12H IV 11/17/16 21:00 11/30/16 03:59 11/20/16 11:44 125 MLS/HR Insulin Glargine (Lantus Solostar Pen) 20 unit HS SC 11/19/16 21:00 12/19/16 20:59 11/20/16 21:12 20 UNIT Pantoprazole Sodium (Protonix Tab) 40 mg QAM PO 11/21/16 09:00 12/21/16 08:59
[2016-11-20 23:19] VITALS: BP 92/52; PULSE 62; TEMP 36.5; O2SAT 95
[2016-11-21] MEDS: NSS + 20MEQ KCL 1000ML 1,000 ML IV SCH ×2 (06:00→12:13)
[2016-11-21 07:39] VITALS: BP 160/66; PULSE 50; TEMP 36.5; O2SAT 96
[2016-11-21] MEDS: LANOLIN/PETROLATUM 30 GM TUBE EXT SCH ×6 (07:52→23:42)
[2016-11-21] MEDS: PIPERACILL/TAZOBAC IV 3.375 GM in DEXTROSE 5% 100ML 100 ML IV SCH (07:56)
--- NOTE | 2016-11-21 08:04 | Pharmacy Progress Note ---
Glycemic Control Progress Note Date of Service Nov 21, 2016. Scope Glycemic Pharmacist consulted for glycemic control to write orders per [facility] inpatient glycemic control protocol. Objective Accuchecks BSG (last 24hrs): Test 11/20/16 11:14 11/20/16 16:40 11/20/16 20:57 11/21/16 07:34 Bedside Glucose 239 mg/dl (70-99) 295 mg/dl (70-99) 227 mg/dl (70-99) 75 mg/dl (70-99) HbA1c: Test 11/16/16 03:55 Hemoglobin A1c 8.6 % (4.5-5.6) H Recent Pertinent Medications The patient is currently receiving: * Basal insulin: Lantus 20 units every 24 hours * Correctional Insulin: Novolog Correction per scale ACHS Goal Range: Low 110 mg/dL - High 140 mg/dL Correction Factor: 15 mg/dL/unit * Prandial insulin: Per carb ratio of 1 unit per 6 grams CHO consumed Outpatient Anti-Diabetic Meds Basal Insulin & Bolus Insulin TOTAL DAILY DOSE AT HOME = 62 UNITS Assessment & Plan ASSESSMENT: * See progress note from 11/16 for more background info, in short: * Pt receiving SQ basal bolus insulin regimen for hyperglycemia secondary to baseline DM (on SQ basal bolus regimen as an outpatient),stress/infection * Patient is currently receiving an average of 30 units of insulin per day * 20 units of basal insulin {outpatient basal insulin dosing is 30 units, lower dose in house for dec PO) * 31 units of prandial/correctional insulin * BSGs 114, 239, 295, 227 over the past 24hrs * Changes needed to insulin regimen: * AM Fasting BSG = 75 mg/dl today. Below goal range. Titrate Lantus down further today. * Post-prandial BSGs are elevated/rise throughout the day. Will continue to tighten CF/CR. PO intake has been poor this admission so we haven't really been able to utilize tightened carb ratio. * Total daily dose = ~51 units PLAN FOR INPATIENT GLYCEMIC CONTROL: * Basal insulin: DECREASE * Lantus 15 units SQ HS * Bolus insulin: TIGHTEN * NovoLog per scale ACHS or Q6hrs while NPO * Goal Range: Low 110 mg/dL - High 140 mg/dL * Correction Factor: 10 mg/dL/unit * Nutritional / Prandial insulin per carb ratio of 1 unit per 4 grams CHO consumed * Please note that the plan above was derived based on current level of insulin resistance and hospital stress. These recommendations are appropriate for inpatient admission only. Plan of care upon discharge will need to be reassessed to avoid potential outpatient hypo/hyperglycemia. Thank you.
[2016-11-21] MEDS: ASPIRIN 81 MG ECTAB PO SCH (08:38)
[2016-11-21] MEDS: MULTIVITAMIN TAB PO SCH (08:38)
[2016-11-21] MEDS: METOPROLOL TARTRATE 25 MG TAB PO SCH ×2 (08:38→20:59)
[2016-11-21] MEDS: HEPARIN SOD 5000 UNIT/0.5 ML CARP SQ SCH ×2 (08:38→21:00)
[2016-11-21] MEDS: POT PHOSPHATE MONOBASIC W/ SOD TAB PO SCH ×4 (08:38→20:59)
[2016-11-21] MEDS: CITALOPRAM 20 MG TAB PO SCH (08:38)
[2016-11-21] MEDS: PANTOprazole SOD 40 MG TAB PO SCH (08:38)
[2016-11-21] MEDS: INSULIN ASPART 100 UNITS/ML 3 ML PEN SC SCH ×4 (08:38→21:04)
[2016-11-21] MEDS: VANCOMYCIN INJ 1,000 MG in SODIUM CHLORIDE 0.9% 250ML 250 ML IV SCH ×2 (13:06→23:38)
[2016-11-21 15:21] VITALS: BP 94/52; PULSE 97; TEMP 36.5; O2SAT 96
[2016-11-21 16:00] VITALS: O2SAT 96
[2016-11-21 20:56] VITALS: BP 118/69; PULSE 76
[2016-11-21] MEDS: PRAVASTATIN SOD 40 MG TAB PO SCH (21:00)
[2016-11-21] MEDS: MIRTAZAPINE TAB 15 MG TAB PO SCH (21:00)
[2016-11-21] MEDS: INSULIN GLARGINE SOLOSTAR 100 UNITS/ML 3 ML PEN SC SCH (21:05)
--- NOTE | 2016-11-21 23:09 | Progress Note ---
Medicine Progress Note Date & Time of Visit: Nov 21, 2016 at ~ 18:30 . Subjective Refused insulin dose at suppertime. No new complaints/concerns. Afebrile. Denies chest pain. No cough or shortness of breath. No nausea, vomiting, diarrhea. . Objective Last 8 Hrs Date Time Temp Pulse Resp B/P (MAP) Pulse Ox O2 Delivery O2 Flow Rate FiO2 11/21/16 20:56 76 118/69 (85) 11/21/16 16:00 96 Room Air 11/21/16 15:21 36.5 97 20 94/52 (66) 96 Physical Exam: General- lying in bed, no acute distress Lungs- clear Heart- RRR Abdomen- + BS, soft, nontender Extremities- trace pretibial edema; no calf tenderness; waffle boots applied Neuro- alert, moderately confused . Laboratory Results: Last 24 Hours Test 11/21/16 07:34 11/21/16 11:19 11/21/16 16:14 11/21/16 20:32 Bedside Glucose 75 mg/dl 258 mg/dl 223 mg/dl 222 mg/dl Assessment & Plan SEPSIS Met criteria for sepsis per 2001 definition and current CMS guidelines. WBC was 19,000. Pulse was 131. Initial lactate was 8.3. Hemodynamically stable in ED. Blood cultures and urine culture obtained. Received broad spectrum antibiotic coverage with piperacillin / tazobactam + vancomycin. Blood cultures growing Staph aureus with 2 different sensitivity profiles- MRSA + MSSA as well as Enterococcus faecalis. Urine culture growing Enterococcus faecalis. ? source(s). No apparent valvular vegetations per transthoracic echo. Would be ideal to check ANDREWS, but patient at relatively high risk for complications from invasive procedures. ID consulted. IV vancomycin x 14 days recommended. Will need PICC, but waiting for consent from family. DM / DKA Blood sugar is high as 413. Treated with insulin infusion. Transitioned to SQ insulin. Refusing insulin at times; encourage compliance. FBS today = 75. OMA Serum creatinine on admission was 1.7. Acute kidney injury probably due to sepsis and volume depletion. Creatinine 11/20 = 0.91. CORONARY ARTERY DISEASE No anginal symptoms. Continue aspirin and metoprolol. HYPERTENSION Continue metoprolol. VTE PROPHYLAXIS SQ heparin. DISPOSITION [facility]. . Current Inpatient Medications: Current Inpatient Medications Medications (Trade) Dose Ordered Sig/Servando Route Start Time Stop Time Status Last Admin Dose Admin Glucose (Glucose 40% Gel) UD PRN PO 11/15/16 11:00 12/15/16 10:59 Glucose (Glucose Chew Tab) 1 tabs UD PRN PO 11/15/16 11:00 12/15/16 10:59 Dextrose (Dextrose 50% 50ML Syringe) 50 ml UD PRN IV 11/15/16 11:00 12/15/16 10:59 11/15/16 13:40 25 ML Glucagon (Glucagon Inj) 1 mg UD PRN SQ 11/15/16 11:00 12/15/16 10:59 Heparin Sodium (Porcine) (Heparin Sq 5000 Unit/0.5ml) 5,000 unit Q12H SQ 11/15/16 21:00 12/15/16 20:59 11/20/16 21:12 5,000 UNIT Lorazepam (Ativan Tab) 0.5 mg Q4H PRN PO 11/15/16 11:00 12/15/16 10:59 Morphine Sulfate (MoRPHine SULFATE INJ) 2 mg Q2H PRN IV 11/15/16 11:00 11/29/16 10:59 Aspirin (Ecotrin Tab) 81 mg QAM PO 11/16/16 09:00 12/16/16 08:59 11/19/16 08:10 81 MG Bisacodyl (Dulcolax Supp) 10 mg UD PRN AR 11/15/16 11:00 12/15/16 10:59 Metoprolol Tartrate (Lopressor Tab) 25 mg BID PO 11/15/16 21:00 12/15/16 20:59 11/20/16 21:05 25 MG Multivitamins (Multivitamin Tab) 1 tab DAILY PO 11/16/16 09:00 12/16/16 08:59 11/18/16 07:18 1 TAB Nitroglycerin (Nitrostat Tab) 0.4 mg UD PRN UT 11/15/16 11:00 12/15/16 10:59 Pravastatin Sodium (Pravachol Tab) 40 mg HS PO 11/15/16 21:00 12/15/16 20:59 11/20/16 21:04 40 MG Sodium Biphosphate/ Sodium Phosphate (Fleet Enema) 30 ml UD PRN AR 11/15/16 11:00 12/15/16 10:59 Multi-Ingredient Ointment (Desitin Oint) QS EXT 11/15/16 16:00 12/15/16 15:59 11/21/16 15:43 1 GM Miscellaneous Information (Consult Glycemic Management Pharmacy) 1 ea UD PRN N/A 11/15/16 11:00 12/15/16 10:59 Citalopram Hydrobromide (celeXA TAB) 10 mg DAILY PO 11/16/16 09:00 12/16/16 08:59 11/20/16 08:07 10 MG Mirtazapine (Remeron Tab) 15 mg HS PO 11/15/16 21:00 12/15/16 20:59 11/20/16 21:06 15 MG Vancomycin HCl (Consult) 1 ea UD PRN N/A 11/15/16 11:45 12/15/16 11:44 Insulin Aspart (novoLOG ASPART) SLIDING SCALE ACHS SC 11/15/16 17:15 12/15/16 17:14 11/21/16 21:04 9 UNITS Potassium/ Phosphorus/Sodium (Phospha 250 Neutral 155-852-130 Mg) 1 tab QID PO 11/16/16 13:00 12/16/16 12:59 11/20/16 21:05 1 TAB Potassium Chloride/Sodium Chloride 1,000 ml @ 75 mls/hr [id number] IV 11/16/16 19:30 12/16/16 19:29 11/21/16 12:13 75 MLS/HR Vancomycin HCl 1000 mg/Sodium Chloride 270 ml @ 125 mls/hr Q12H IV 11/17/16 21:00 11/30/16 23:59 11/21/16 13:06 125 MLS/HR Pantoprazole Sodium (Protonix Tab) 40 mg QAM PO 11/21/16 09:00 12/21/16 08:59 Insulin Glargine (Lantus Solostar Pen) 15 unit HS SC 11/21/16 21:00 12/21/16 20:59 11/21/16 21:05 15 UNIT
[2016-11-21 23:23] VITALS: BP 119/72; PULSE 76; TEMP 36.5; O2SAT 97
[2016-11-22 07:17] VITALS: BP 123/75; PULSE 76; TEMP 36.9; O2SAT 98
--- NOTE | 2016-11-22 07:42 | Pharmacy Progress Note ---
Glycemic Control Progress Note Date of Service Nov 22, 2016. Scope Glycemic Pharmacist consulted for glycemic control to write orders per [facility] inpatient glycemic control protocol. Objective Accuchecks BSG (last 24hrs): Test 11/21/16 11:19 11/21/16 16:14 11/21/16 20:32 11/22/16 07:05 Bedside Glucose 258 mg/dl (70-99) 223 mg/dl (70-99) 222 mg/dl (70-99) 117 mg/dl (70-99) HbA1c: Test 11/16/16 03:55 Hemoglobin A1c 8.6 % (4.5-5.6) H Recent Pertinent Medications The patient is currently receiving: * Basal insulin: Lantus 15 units every 24 hours * Correctional Insulin: Novolog Correction per scale ACHS Goal Range: Low 110 mg/dL - High 140 mg/dL Correction Factor: 10 mg/dL/unit * Prandial insulin: Per carb ratio of 1 unit per 4 grams CHO consumed Outpatient Anti-Diabetic Meds Basal Insulin & Bolus Insulin Assessment & Plan ASSESSMENT: * See progress note from 11/16 for more background info, in short: * Pt receiving SQ basal bolus insulin regimen for hyperglycemia secondary to baseline DM (on SQ basal bolus regimen as an outpatient),stress/infection * Patient is currently receiving an average of 50-60 units of insulin per day * BSGs over the past 24 hours: 75, 258, 223, 222 * Changes needed to insulin regimen: * AM Fasting BSG = 117 mg/dl today. At goal. OK to continue current Lantus dose. * Post-prandial BSGs are elevated/rise throughout the day. PO intake up until yesterday has been poor; however, patient had two meals of >50 g CHO documented which is an improvement. I was worried to see patient received 34 units of Novolog with Lunch, but surprisingly, BSG only came down to 223 at dinner. Pt uncomfortable with the large Novolog dose so he refused insulin with dinner last night. MD encouraged compliance. At this point I want to utilize current regimen X 24 hours with no missed doses and reassess total units needed. * Other notes/comments: On top of refusing insulin, patient is consuming chocolate carnation throughout the day that is not covered. Having nursing do an unscheduled administration when patient already refusing doses is not feasible. MD aware and knows that achieving euglycemia is unlikely. Our approach is to not be overly aggressive, try to get a 24 hour total daily dose and make decisions based on that number. PLAN FOR INPATIENT GLYCEMIC CONTROL: * Basal insulin: Continue * Lantus 15 units SQ HS * Bolus insulin: Continue * NovoLog per scale ACHS or Q6hrs while NPO * Goal Range: Low 110 mg/dL - High 140 mg/dL * Correction Factor: 10 mg/dL/unit * Nutritional / Prandial insulin per carb ratio of 1 unit per 4 grams CHO consumed * Please note that the plan above was derived based on current level of insulin resistance and hospital stress. These recommendations are appropriate for inpatient admission only. Plan of care upon discharge will need to be reassessed to avoid potential outpatient hypo/hyperglycemia. Thank you.
[2016-11-22] MEDS: CITALOPRAM 20 MG TAB PO SCH (07:57)
[2016-11-22] MEDS: ASPIRIN 81 MG ECTAB PO SCH (07:57)
[2016-11-22] MEDS: POT PHOSPHATE MONOBASIC W/ SOD TAB PO SCH ×4 (07:58→21:44)
[2016-11-22] MEDS: METOPROLOL TARTRATE 25 MG TAB PO SCH ×2 (07:58→21:45)
[2016-11-22] MEDS: MULTIVITAMIN TAB PO SCH (07:58)
[2016-11-22] MEDS: PANTOprazole SOD 40 MG TAB PO SCH (07:58)
[2016-11-22] MEDS: HEPARIN SOD 5000 UNIT/0.5 ML CARP SQ SCH ×2 (08:01→21:00)
[2016-11-22] MEDS: LANOLIN/PETROLATUM 30 GM TUBE EXT SCH ×6 (08:02→23:46)
[2016-11-22] MEDS: INSULIN ASPART 100 UNITS/ML 3 ML PEN SC SCH ×4 (08:06→21:00)
[2016-11-22] MEDS ORDERED: VANCOMYCIN TROUGH SCH (11:30)
[2016-11-22 12:12] LABS: HEMATOCRIT 36.9 % (42-52); MEAN CELL VOLUME 92.5 fL (80-100); MEAN CORPUSCULAR HEMOGLOBIN 30.6 pg (25-34); MEAN CORPUSCULAR HGB CONC 33.1 g/dl (32-36); MEAN PLATELET VOLUME 10.3 fL (7.4-10.4); PLATELET COUNT 351 K/uL (130-400); RED BLOOD COUNT 3.99 M/uL (4.7-6.1)
[2016-11-22 12:20] LABS: BUN/CREATININE RATIO 9.6 (10-20); CREATININE 1.2 mg/dl (0.60-1.40); POTASSIUM 4.1 mmol/L (3.5-5.1)
[2016-11-22] MEDS: VANCOMYCIN INJ 1,000 MG in SODIUM CHLORIDE 0.9% 250ML 250 ML IV SCH ×2 (12:26→13:05)
[2016-11-22 12:36] LABS: BETA-HYDROXYBUTYRATE 3.06 mg/dL (0.2-2.81)
--- NOTE | 2016-11-22 15:29 | Pharmacy Progress Note ---
Pharmacy Abx Dose Short Note Date of Service Nov 22, 2016. Assessment & Plan Assessment 71 year old male receiving Vancomycin IV for treatment of MRSA, MSSA and E.faecalis bacteremia. * Day # 8 of antimicrobial therapy * ID recommends vancomycin IV x 14 days from the first negative blood culture on 11/17/16 BLD CULT Final 11/21/16-0818 Organism 1 STAPHYLOCOCCUS AUREUS SENS SENSITIVITY TO FOLLOW Organism 2 STAPHYLOCOCCUS AUREUS#2 SENS SENSITIVITY TO FOLLOW Organism 3 ENTEROCOCCUS FAECALIS SENS SENSITIVITY TO FOLLOW SENSITIVITY RESULT INDICATES A METHICILLIN RESISTANT STAPH. AUREUS STAPH AUR STAPH AUR#2 E FAECALIS M.I.C. RX M.I.C. RX M.I.C. RX --------- ------ --------- ------ --------- ------ TRIMET/SULFA <=0.5/9.5 S <=0.5/9.5 S AMPICILLIN <=2 S * OXACILLIN <=0.25 R <=0.25 S GENT SYNERGY <=500 S VANCOMYCIN 1 S 1 S 2 S PENICILLIN 2 S ERYTHROMYCIN <=0.5 S <=0.5 S TETRACYCLINE >8 R >8 R CLINDAMYCIN <=0.5 S <=0.5 S DAPTOMYCIN <=0.5 S <=0.5 S <=0.5 S RIFAMPIN <=1 S STREP SYNERGY <=1000 S ENTEROCOCCUS FAECALIS: POSITIVE COMBO 33 Streptomycin Synergy Screen S Gentamicin Synergy Screen S Plan Continue Vancomycin * Trough level of 22.8 mcg/mL is slightly supratherapeutic. * Goal trough level for bacteremia : 15 to 20 mcg/mL - will aim for trough closer to 20 mcg/mL d/t Vanc DONNY = 2. * Will slightly decrease dose but continue to dose aggressively due to site of infection and DONNY. * Change to 900 mg IV every 12 hours * Repeat trough level will be ordered if there is change in clinical status of if patient continues to be admitted Pharmacy will continue to follow and will adjust dose/frequency as necessary. Thank you.
[2016-11-22 15:54] VITALS: BP 111/63; PULSE 73; TEMP 36.8; O2SAT 97
[2016-11-22 16:00] VITALS: O2SAT 97
[2016-11-22 21:43] VITALS: BP 129/75; PULSE 85
[2016-11-22] MEDS: PRAVASTATIN SOD 40 MG TAB PO SCH (21:45)
[2016-11-22] MEDS: MIRTAZAPINE TAB 15 MG TAB PO SCH (21:45)
[2016-11-22] MEDS: INSULIN GLARGINE SOLOSTAR 100 UNITS/ML 3 ML PEN SC SCH (21:50)
--- NOTE | 2016-11-22 23:08 | Progress Note ---
Medicine Progress Note Date & Time of Visit: Nov 22, 2016 at 15:30 . Subjective No fever. No chest pain. No cough or shortness of breath. No nausea, vomiting, diarrhea. Blood sugars fluctuating. Oral intake variable. Refuses some doses of insulin. Sister visiting. . Objective Last 8 Hrs Date Time Temp Pulse Resp B/P (MAP) Pulse Ox O2 Delivery O2 Flow Rate FiO2 11/22/16 21:43 85 129/75 (93) 11/22/16 16:00 97 Room Air 11/22/16 15:54 36.8 73 16 111/63 (79) 97 Room Air Physical Exam: General- lying in bed, no acute distress Lungs- clear Heart- RRR Abdomen- + BS, soft, nontender Extremities- trace pretibial edema; no calf tenderness Neuro- alert, moderately confused . Laboratory Results: Last 24 Hours Test 11/22/16 07:05 11/22/16 11:18 11/22/16 11:21 11/22/16 16:28 Bedside Glucose 117 mg/dl 349 mg/dl 125 mg/dl White Blood Count 11.60 K/uL Red Blood Count 3.99 M/uL Hemoglobin 12.2 g/dL Hematocrit 36.9 % Mean Corpuscular Volume 92.5 fL Mean Corpuscular Hemoglobin 30.6 pg Mean Corpuscular Hemoglobin Concent 33.1 g/dl RDW Standard Deviation 44.9 fL RDW Coefficient of Variation 13.4 % Platelet Count 351 K/uL Mean Platelet Volume 10.3 fL Sodium Level 139 mmol/L Potassium Level 4.1 mmol/L Chloride Level 107 mmol/L Carbon Dioxide Level 22 mmol/L Anion Gap 10.0 mmol/L Blood Urea Nitrogen 12 mg/dl Creatinine 1.20 mg/dl Est Creatinine Clear Calc Drug Dose 58.1 ml/min Estimated GFR () 70.6 Estimated GFR (Non- 60.9 BUN/Creatinine Ratio 9.6 Random Glucose 333 mg/dl Calcium Level 9.0 mg/dl Beta-Hydroxybutyric Acid 3.06 mg/dL Vancomycin Level Trough 22.8 mcg/ml Test 11/22/16 20:33 Bedside Glucose 110 mg/dl Assessment & Plan SEPSIS Met criteria for sepsis per 2001 definition and current CMS guidelines. WBC was 19,000. Pulse was 131. Initial lactate was 8.3. Hemodynamically stable in ED. Blood cultures and urine culture obtained. Received broad spectrum antibiotic coverage with piperacillin / tazobactam + vancomycin. Blood cultures growing Staph aureus with 2 different sensitivity profiles- MRSA + MSSA as well as Enterococcus faecalis. Urine culture growing Enterococcus faecalis. ? source(s). No apparent valvular vegetations per transthoracic echo. Would be ideal to check ANDREWS, but patient at relatively high risk for complications from invasive procedures. ID consulted. IV vancomycin x 14 days starting 11/17 (date of first negative blood culture) recommended. Consent for PICC obtained from sister / POA. DM / DKA Blood sugar's high as 413. Pharmacy consulted for glycemic management. Treated with insulin infusion. Transitioned to SQ insulin. Blood sugars continue to fluctuate due to very will oral intake and intermittent refusal insulin. OMA Serum creatinine on admission was 1.7. Acute kidney injury probably due to sepsis and volume depletion. Creatinine today = 1.2. CORONARY ARTERY DISEASE No anginal symptoms. Continue aspirin and metoprolol. HYPERTENSION Continue metoprolol. VTE PROPHYLAXIS SQ heparin. DISPOSITION Expected return to [facility]. . Current Inpatient Medications: Current Inpatient Medications Medications (Trade) Dose Ordered Sig/Servando Route Start Time Stop Time Status Last Admin Dose Admin Glucose (Glucose 40% Gel) UD PRN PO 11/15/16 11:00 12/15/16 10:59 Glucose (Glucose Chew Tab) 1 tabs UD PRN PO 11/15/16 11:00 12/15/16 10:59 Dextrose (Dextrose 50% 50ML Syringe) 50 ml UD PRN IV 11/15/16 11:00 12/15/16 10:59 11/15/16 13:40 25 ML Glucagon (Glucagon Inj) 1 mg UD PRN SQ 11/15/16 11:00 12/15/16 10:59 Heparin Sodium (Porcine) (Heparin Sq 5000 Unit/0.5ml) 5,000 unit Q12H SQ 11/15/16 21:00 12/15/16 20:59 11/20/16 21:12 5,000 UNIT Lorazepam (Ativan Tab) 0.5 mg Q4H PRN PO 11/15/16 11:00 12/15/16 10:59 11/22/16 14:43 0.5 MG Morphine Sulfate (MoRPHine SULFATE INJ) 2 mg Q2H PRN IV 11/15/16 11:00 11/29/16 10:59 Aspirin (Ecotrin Tab) 81 mg QAM PO 11/16/16 09:00 12/16/16 08:59 11/22/16 07:57 81 MG Bisacodyl (Dulcolax Supp) 10 mg UD PRN DE 11/15/16 11:00 12/15/16 10:59 Metoprolol Tartrate (Lopressor Tab) 25 mg BID PO 11/15/16 21:00 12/15/16 20:59 11/22/16 21:45 25 MG Multivitamins (Multivitamin Tab) 1 tab DAILY PO 11/16/16 09:00 12/16/16 08:59 11/22/16 07:58 1 TAB Nitroglycerin (Nitrostat Tab) 0.4 mg UD PRN UT 11/15/16 11:00 12/15/16 10:59 Pravastatin Sodium (Pravachol Tab) 40 mg HS PO 11/15/16 21:00 12/15/16 20:59 11/22/16 21:45 40 MG Sodium Biphosphate/ Sodium Phosphate (Fleet Enema) 30 ml UD PRN DE 11/15/16 11:00 12/15/16 10:59 Multi-Ingredient Ointment (Desitin Oint) QS EXT 11/15/16 16:00 12/15/16 15:59 11/22/16 15:38 1 GM Miscellaneous Information (Consult Glycemic Management Pharmacy) 1 ea UD PRN N/A 11/15/16 11:00 12/15/16 10:59 Citalopram Hydrobromide (celeXA TAB) 10 mg DAILY PO 11/16/16 09:00 12/16/16 08:59 11/22/16 07:57 10 MG Mirtazapine (Remeron Tab) 15 mg HS PO 11/15/16 21:00 12/15/16 20:59 11/22/16 21:45 15 MG Vancomycin HCl (Consult) 1 ea UD PRN N/A 11/15/16 11:45 12/15/16 11:44 Insulin Aspart (novoLOG ASPART) SLIDING SCALE ACHS SC 11/15/16 17:15 12/15/16 17:14 11/22/16 18:04 5 UNITS Potassium/ Phosphorus/Sodium (Phospha 250 Neutral 155-852-130 Mg) 1 tab QID PO 11/16/16 13:00 12/16/16 12:59 11/22/16 21:44 1 TAB Pantoprazole Sodium (Protonix Tab) 40 mg QAM PO 11/21/16 09:00 12/21/16 08:59 11/22/16 07:58 40 MG Insulin Glargine (Lantus Solostar Pen) 15 unit HS SC 11/21/16 21:00 12/21/16 20:59 11/22/16 21:50 15 UNIT Vancomycin HCl 900 mg/Sodium Chloride 268 ml @ 125 mls/hr Q12H IV 11/23/16 00:00 11/30/16 23:59 Heparin Sodium (Porcine) (Heparin 10 Unit/ ml 5 ml Flush) 5 ml PRN PRN FLUSH 11/22/16 16:00 12/22/16 15:59
[2016-11-22 23:31] VITALS: BP 120/73; PULSE 76; TEMP 36.8; O2SAT 96
[2016-11-22] MEDS: VANCOMYCIN INJ 900 MG in SODIUM CHLORIDE 0.9% 250ML 250 ML IV SCH (23:45)
[2016-11-23 07:34] VITALS: BP 101/56; PULSE 66; TEMP 37; O2SAT 98
[2016-11-23] MEDS: HEPARIN SOD 5000 UNIT/0.5 ML CARP SQ SCH (08:58)
[2016-11-23] MEDS: CITALOPRAM 20 MG TAB PO SCH (08:59)
[2016-11-23] MEDS: MULTIVITAMIN TAB PO SCH (08:59)
[2016-11-23] MEDS: ASPIRIN 81 MG ECTAB PO SCH (08:59)
[2016-11-23] MEDS: METOPROLOL TARTRATE 25 MG TAB PO SCH (08:59)
[2016-11-23] MEDS: POT PHOSPHATE MONOBASIC W/ SOD TAB PO SCH ×3 (09:00→17:00)
[2016-11-23] MEDS: PANTOprazole SOD 40 MG TAB PO SCH (09:00)
[2016-11-23] MEDS: LANOLIN/PETROLATUM 30 GM TUBE EXT SCH ×4 (09:00→17:13)
[2016-11-23] MEDS ORDERED: INSDGI SQ (09:03)
[2016-11-23] MEDS ORDERED: VANC500I IV ×2 (09:04→14:30)
[2016-11-23] MEDS ORDERED: INSU100I SQ ×3 (09:04→14:45)
[2016-11-23] MEDS: INSULIN ASPART 100 UNITS/ML 3 ML PEN SC SCH ×3 (09:08→17:13)
[2016-11-23] MEDS: VANCOMYCIN INJ 900 MG in SODIUM CHLORIDE 0.9% 250ML 250 ML IV SCH (11:14)
[2016-11-23 11:55] VITALS: BP 101/56; PULSE 66; TEMP 37; O2SAT 98
--- NOTE | 2016-11-23 13:36 | Pharmacy Progress Note ---
Glycemic Control Progress Note Date of Service Nov 23, 2016. Scope Glycemic Pharmacist consulted for glycemic control to write orders per [facility] inpatient glycemic control protocol. Objective Accuchecks BSG (last 24hrs): Test 11/22/16 16:28 11/22/16 20:33 11/23/16 07:19 11/23/16 11:40 Bedside Glucose 125 mg/dl (70-99) 110 mg/dl (70-99) 80 mg/dl (70-99) 71 mg/dl (70-99) HbA1c: Test 11/16/16 03:55 Hemoglobin A1c 8.6 % (4.5-5.6) H Recent Pertinent Medications The patient is currently receiving: * Basal insulin: Lantus 15 units every 24 hours * Correctional Insulin: Novolog Correction per scale ACHS Goal Range: Low 110 mg/dL - High 140 mg/dL Correction Factor: 10 mg/dL/unit * Prandial insulin: Per carb ratio of 1 unit per 4 grams CHO consumed Outpatient Anti-Diabetic Meds Basal Insulin and Bolus Insulin Assessment & Plan ASSESSMENT: * See progress note from 11/16 for more background info, in short: * Pt receiving SQ basal bolus insulin regimen for hyperglycemia secondary to baseline DM (on SQ basal bolus regimen as an outpatient),stress/infection * Patient is currently receiving an average of 50-60 units of insulin per day * BSGs over the past 24 hours: 349,125,110,80,71 * Changes needed to insulin regimen: * AM Fasting BSG = 80 mg/dl today, then 71mg/dl prelunch. Patient boarderline hypoglycemic, will loosen CF and CR and decrease Lantus. * Per yesterday: Other notes/comments: On top of refusing insulin, patient is consuming chocolate carnation throughout the day that is not covered. Having nursing do an unscheduled administration when patient already refusing doses is not feasible. MD aware and knows that achieving euglycemia is unlikely. Our approach is to not be overly aggressive, try to get a 24 hour total daily dose and make decisions based on that number. PLAN FOR INPATIENT GLYCEMIC CONTROL: * Basal insulin: DECREASE * Lantus 12 units SQ HS * Bolus insulin: CHANGE * NovoLog per scale ACHS or Q6hrs while NPO * Goal Range: Low 110 mg/dL - High 140 mg/dL * Correction Factor: 18 mg/dL/unit * Nutritional / Prandial insulin per carb ratio of 1 unit per 6 grams CHO consumed * Please note that the plan above was derived based on current level of insulin resistance and hospital stress. These recommendations are appropriate for inpatient admission only. Plan of care upon discharge will need to be reassessed to avoid potential outpatient hypo/hyperglycemia. Thank you.
--- NOTE | 2016-11-23 13:39 | Clinical Documentation Query ---
CLINICAL DOCUMENTATION QUERY Dr. LEVY, In your clinical opinion is this patient being managed for: ( ) Functional quadriplegia ( ) Other explanation of clinical findings (Please Explain) ( ) Unable to determine (Please Define) ( ) Need to Discuss ( X ) Not Agree The medical record reflects the following clinical findings, treatment, and risk factors. Clinical Indicators: 71 yo male noted to be bedridden with shay lift transfers. Unable to perform ADLs, incontinent x 2 Treatment:Staff perform ADL's, turn and reposition pt, pressure ulcer prevention precautions Risk Factors: dementia, DM, PVD, HTN Functional Quadriplegia is the lack of ability to use one's limbs or to ambulate due to extreme debility that is not associated with a neurological condition or injury, such as quadriplegia caused by a fracture of C3. Functional quadriplegia is often associated with dementia, such as Alzheimer's disease in which the patient loses the ability to feed, bath, and toilet themselves. There are other conditions just as likely to render the patient at risk for functional quadriplegia, including the degenerating neurological conditions ALS, MS, [place]'s, and Parkinson's Please clarify and document your clinical opinion in the progress notes and discharge summary. Terms such as "probable", "suspected", "likely", "questionable", "possible", or "still to be ruled out" are acceptable. IF IN AGREEMENT, YOU MUST DOCUMENT ABOVE DIAGNOSTIC STATEMENT IN DAILY PROGRESS NOTES AND DISCHARGE SUMMARY. This document is not part of the patient's record. Thank You, Christina Acosta, RN [phone]
--- NOTE | 2016-11-23 14:27 | Progress Note ---
Medicine Progress Note Date & Time of Visit: Nov 23, 2016 at 10:20 . Subjective Doing fairly well. No fever. No chest pain, cough, SOB, nausea, vomiting, diarrhea. . Objective Last 8 Hrs Date Time Temp Pulse Resp B/P (MAP) Pulse Ox O2 Delivery O2 Flow Rate FiO2 11/23/16 11:55 37.0 66 18 98 Room Air 11/23/16 10:56 Room Air 11/23/16 07:34 37.0 66 18 101/56 (71) 98 Room Air Physical Exam: General- lying in bed, no distress Neck- no JVD Lungs- clear Heart- RRR Abdomen- + BS, soft, nontender Extremities- trace pretibial edema; no calf tenderness Neuro- alert, moderately confused . Laboratory Results: Last 24 Hours Test 11/22/16 16:28 11/22/16 20:33 11/23/16 07:19 11/23/16 11:40 Bedside Glucose 125 mg/dl 110 mg/dl 80 mg/dl 71 mg/dl Assessment & Plan SEPSIS Met criteria for sepsis per 2001 definition and current CMS guidelines. WBC was 19,000. Pulse was 131. Initial lactate was 8.3. Hemodynamically stable in ED. Blood cultures and urine culture obtained. Received broad spectrum antibiotic coverage with piperacillin / tazobactam + vancomycin. Blood cultures grew Staph aureus with 2 different sensitivity profiles- MRSA + MSSA as well as Enterococcus faecalis. Urine culture grew Enterococcus faecalis. No apparent valvular vegetations per transthoracic echo. Would be ideal to check ANDREWS, but patient at relatively high risk for complications from invasive procedures. ID consulted. Source of sepsis felt most likely to be urinary tract and / or skin. IV vancomycin x 14 days starting 11/17 (date of first negative blood culture) recommended. Discharge on vancomycin 900 mg IV q 12 hours. Check vancomycin trough on 11/27. Stop date = 12/01. Reculture blood and urine if fever recurs. DM / DKA Blood sugar was 335 at time of admission with elevated anion gap and beta- hydroxybutyric acid. Pharmacy consulted for glycemic management. Treated with insulin infusion. Transitioned to SQ insulin. Blood sugars continue to fluctuate due to very will oral intake and intermittent refusal insulin. Discharge on Lantus 10 units BID + Humalog sliding scale. Will need ongoing adjustment of insulin regimen. ACUTE KIDNEY INJURY Serum creatinine on admission was 1.7. Acute kidney injury probably due to sepsis and volume depletion. Creatinine 11/22 was 1.2. CORONARY ARTERY DISEASE No anginal symptoms. Continue aspirin and metoprolol. HYPERTENSION Continue metoprolol. VTE PROPHYLAXIS SQ heparin. DISPOSITION Returning to [facility] under the care of Dr. Sanchez. . Current Inpatient Medications: Current Inpatient Medications Medications (Trade) Dose Ordered Sig/Servando Route Start Time Stop Time Status Last Admin Dose Admin Glucose (Glucose 40% Gel) UD PRN PO 11/15/16 11:00 12/15/16 10:59 Glucose (Glucose Chew Tab) 1 tabs UD PRN PO 11/15/16 11:00 12/15/16 10:59 Dextrose (Dextrose 50% 50ML Syringe) 50 ml UD PRN IV 11/15/16 11:00 12/15/16 10:59 11/15/16 13:40 25 ML Glucagon (Glucagon Inj) 1 mg UD PRN SQ 11/15/16 11:00 12/15/16 10:59 Heparin Sodium (Porcine) (Heparin Sq 5000 Unit/0.5ml) 5,000 unit Q12H SQ 11/15/16 21:00 12/15/16 20:59 11/20/16 21:12 5,000 UNIT Lorazepam (Ativan Tab) 0.5 mg Q4H PRN PO 11/15/16 11:00 12/15/16 10:59 11/22/16 14:43 0.5 MG Morphine Sulfate (MoRPHine SULFATE INJ) 2 mg Q2H PRN IV 11/15/16 11:00 11/29/16 10:59 Aspirin (Ecotrin Tab) 81 mg QAM PO 11/16/16 09:00 12/16/16 08:59 11/23/16 08:59 81 MG Bisacodyl (Dulcolax Supp) 10 mg UD PRN DC 11/15/16 11:00 12/15/16 10:59 Metoprolol Tartrate (Lopressor Tab) 25 mg BID PO 11/15/16 21:00 12/15/16 20:59 11/23/16 08:59 25 MG Multivitamins (Multivitamin Tab) 1 tab DAILY PO 11/16/16 09:00 12/16/16 08:59 11/23/16 08:59 1 TAB Nitroglycerin (Nitrostat Tab) 0.4 mg UD PRN UT 11/15/16 11:00 12/15/16 10:59 Pravastatin Sodium (Pravachol Tab) 40 mg HS PO 11/15/16 21:00 12/15/16 20:59 11/22/16 21:45 40 MG Sodium Biphosphate/ Sodium Phosphate (Fleet Enema) 30 ml UD PRN DC 11/15/16 11:00 12/15/16 10:59 Multi-Ingredient Ointment (Desitin Oint) QS EXT 11/15/16 16:00 12/15/16 15:59 11/23/16 09:00 1 GM Miscellaneous Information (Consult Glycemic Management Pharmacy) 1 ea UD PRN N/A 11/15/16 11:00 12/15/16 10:59 Citalopram Hydrobromide (celeXA TAB) 10 mg DAILY PO 11/16/16 09:00 12/16/16 08:59 11/23/16 08:59 10 MG Mirtazapine (Remeron Tab) 15 mg HS PO 11/15/16 21:00 12/15/16 20:59 11/22/16 21:45 15 MG Vancomycin HCl (Consult) 1 ea UD PRN N/A 11/15/16 11:45 12/15/16 11:44 Insulin Aspart (novoLOG ASPART) SLIDING SCALE ACHS SC 11/15/16 17:15 12/15/16 17:14 11/23/16 12:43 9 UNITS Potassium/ Phosphorus/Sodium (Phospha 250 Neutral 155-852-130 Mg) 1 tab QID PO 11/16/16 13:00 12/16/16 12:59 11/23/16 12:43 1 TAB Pantoprazole Sodium (Protonix Tab) 40 mg QAM PO 11/21/16 09:00 12/21/16 08:59 11/23/16 09:00 40 MG Vancomycin HCl 900 mg/Sodium Chloride 268 ml @ 125 mls/hr Q12H IV 11/23/16 00:00 11/30/16 23:59 11/23/16 11:14 125 MLS/HR Heparin Sodium (Porcine) (Heparin 10 Unit/ ml 5 ml Flush) 5 ml PRN PRN FLUSH 11/22/16 16:00 12/22/16 15:59 11/23/16 13:59 5 ML Insulin Glargine (Lantus Solostar Pen) 12 unit HS SC 11/23/16 21:00 12/23/16 20:59
--- NOTE | 2016-11-23 14:27 | Discharge Instructions ---
Discharge Instructions Date of Service Nov 23, 2016. Admission Reason for Admission: DKA . Discharge Discharge Diagnosis / Problem: sepsis, bacteremia, DKA Discharge Goals Goal(s): Decrease discomfort, Improve disease control Activity Recommendations Activity Level: Assistance Required Therapies: Physical Therapy, Occupational Therapy . Additional Information Patient informed of condition: Yes Advance Directives: Yes DNR: Yes Level of Care: Skilled Communicable Disease: No Prognosis: Improving Wiley Catheter: No Current Hospital Diet Patient's current hospital diet: Diabetes Type 2 Diet Discharge Diet Recommended Diet: AHA Diet (Heart Healthy), Diabetes Type 2 Diet Diet Texture: Dental Soft (bite-sized) Pending Studies Studies pending at discharge: no Physician Orders On Transfer Special Precautions: aspiration precautions fall precautions skin precautions contact precautions- MRSA . IV Therapy: IV vancomycin as ordered. Routine PICC maintenance. DC PICC after course of vancomycin completed. . Vital Signs: routine . Weigh: routine . Additional Orders: fingerstick blood sugars AC + HS Humalog scale AC: < 81 0 units 81-120 4 units 121-160 8 units 161-200 12 units 201-240 16 units 241-280 20 units 281-320 24 units > 320 28 units CBC, basic metabolic profile, trough vancomycin level 11/27/16 reposition q 2 hours waffle boots or other heel protectors Thank you for receiving this patient in transfer. Please call if you have any questions. Golden Harris . Laboratory Results Hemoglobin A1c Test 11/16/16 03:55 Range/Units Estimated Average Glucose 200 mg/dl Hemoglobin A1c 8.6 H 4.5-5.6 % Medical Emergencies . Who to Call and When: Medical Emergencies: If at any time you feel your situation is an emergency, please call 911 immediately. . Non-Emergent Contact Non-Emergency issues call your: Primary Care Provider, Hospital Doctor . . "Provider Documentation" section prepared by Golden Harris. . Core Measure Problem Core Measures: None
--- NOTE | 2016-11-23 14:40 | Discharge Summary ---
Discharge Summary Date of Service Nov 23, 2016. Discharge Summary Admission Date: Nov 15, 2016 at 11:00 Discharge Date: Nov 23, 2016 Discharge Disposition: [facility]) Principal Diagnosis: sepsis urinary tract infection (Enterococcus faecalis) bacteremia (Staph aureus #1 = MRSA, Staph aureus # 2 = MSSA, Enterococcus faecalis) diabetic ketoacidosis . Secondary Diagnoses/Problems: Chronic and Resolved Medical Problems: (1) CAD (coronary artery disease) Status: Chronic (2) Cerebrovascular disease Permanent Comment: history CVA Status: Chronic (3) Chronic renal insufficiency Status: Chronic (4) Dementia Status: Chronic (5) Depression Status: Chronic (6) GERD (gastroesophageal reflux disease) Status: Chronic (7) HLD (hyperlipidemia) Status: Chronic (8) HTN (hypertension) Status: Chronic (9) Macular degeneration Status: Chronic (10) Type 2 diabetes mellitus Status: Chronic . Procedures: cardiac monitoring IV meds echocardiogram . Consultations: Pharmacy for glycemic management CCM ID with Dr. Gamboa . Medication Reconciliation New Medications: Vancomycin Hcl In Dextrose (Vancomycin Hcl In Dextros) 1 Inj Inj 900 MG IV Q12, #16 DOSE Stop date 12/01/16. Last dose at [facility] noon on 11/23/16. Start new schedule 0900 - 2100 on 11/24/16 (no dose PM 11/23). Changed Medications: Insulin Glargine (Lantus) 100 Unit/Ml Inj 10 UNITS SQ BID, #1 VIAL (Changed from: 30 UNITS; QPM) New dose as of 11/23/16. Hold for blood sugar < 80. Insulin Lispro (Human) (Humalog) 100 Unit/Ml Inj 1 DOSE SQ AC, #1 (Changed from: New sliding scale 11/23/16. < 81 0 units 81 -120 4 units 121-160 8 units 161-200 12 units 201-240 16 units 241- 280 20 units 281-320 24 units > 320 28 units ) New sliding scale 11/23/16. < 81 0 units 81-120 4 units 121-160 8 units 161-200 12 units 201-240 16 units 241-280 20 units 281-320 24 units > 320 28 units Continued Medications: Acetaminophen Tab (Tylenol) 325 Mg Tab 650 MG PO TID PRN for Pain, TAB AT 9AM,3PM & 9PM. ROUTINE FOR PAINT DO NOT EXCEED 3000 MG APAP/24 HOURS Ascorbic Acid (Vitamin C) 500 Mg Tab 500 MG PO QAM Aspirin (Aspirin Chewable) 81 Mg Chew 81 MG PO QAM Bisacodyl (Bisac-Evac) 10 Mg Sup 10 MG DC UD PRN for Constipation NEEDED ON DAY 5 WITHOUT A BOWEL MOVEMENT IF MOM INEFFECTIVE Citalopram Hydrobromide (Celexa) 10 Mg Tab 1 TAB PO DAILY for 30 Days, #30 TAB 1 Refill Glucagon (Glucagon Emergency Kit) 1 Mg Kit 1 MG IM UD PRN for HYPOGLYCEMIA PROTOCOL FOR ACCUCHECK LESS THAN 60 AND IF UNABLE TO TAKE PO SOURCE OF CARBOHYDRATE. IF NO RESPONSE AFTER 15 MINUTES MAY REPEAT DOSE ONCE Metoprolol Tartrate (Lopressor) 25 Mg Tab 25 MG PO BID *HOLD FOR SPB OF 100 OR LESS AND AP 60 OR LESS Mirtazapine (Remeron) 15 Mg Tab 1 TAB PO HS for 30 Days, #30 TAB 1 Refill Multiple Vitamin (Daily Ruthie) 1 Tab Tab 1 TAB PO DAILY Nitroglycerin (Nitrostat) 0.4 Mg Tab 0.4 MG UT UD PRN for Chest Pain, BTL PLACE ONE TABLET UNDER THE TONGUE EVERY 5 MINUTES FOR UP TO 3 DOSES IF NEEDED FOR CHEST PAIN Pantoprazole (Protonix) 20 Mg Tab 20 MG PO QAM Pravastatin Sodium (Pravastatin Sodium) 40 Mg Tab 40 MG PO HS, TAB Sodium Phosphate/Biphosphate (Fleet Enema) Esperanza 1 EA DC UD, BTL NEEDED ON DAY 6 IF DULCOLAX SUPPOSITORY WAS INEFFECTIVE Zinc Oxide (Topical) (Desitin) 40 % Oin 1 APPLN TOP QSHIFT TO BILATERAL UPPER BUTTOCK Admission Information HPI (per Admitting provider): HISTORY OF PRESENT ILLNESS: This 71-year-old male with past medical history significant for CVA, diabetes, hyperlipidemia, GERD, hypertension, decubitus ulcers, CAD, nutritional anemia, major depression, cataracts, peripheral vascular disease, history of major depression, cataracts, peripheral vascular disease, macular degeneration, dementia, presents with DKA. The patient is a [facility] patient. Sugars were running very high and patient seemed to be a little confused from his baseline and was transferred to ER. Initially was thought to have some hypoxia, but his oxygen saturation improved. His mental status is back to baseline. He always has some runny nose but thought it was some what more than usual and possible some flu-like symptoms but right now patient is resting comfortably and denies any pain, denies any shortness of breath, has chronic cough, no chest pain, no nausea. The patient's sister is the power of civil attorney. The patient is oriented to name only. Could not get much history from the patient as patient has dementia.. As per sister, the patient had this episode of hyperglycemia in the past. He has healed heel ulcers and he has stage II decubitus ulcer in the back. He is incontinent of both urine and stools. No recent fevers, chills. Appetite is very poor. Since last year he is mostly bedbound, not mobile. He is hemodynamically stable in the ER, but his lactic acid is elevated at 8.3 and his hydroxybutyrate acid was 20.6. The patient also blind in the left eye and also right eye vision is not good . . Physical Exam (per Admitting): GENERAL: The patient is of moderate built, not in distress. VITAL SIGNS: Temperature 37.1, pulse in 110s, respiratory rate 21, blood pressure 112/61, oxygen 96% on 2 liters. HEAD, EYES, EARS, NOSE, AND THROAT: Blind in the left eye, minimal vision right eye. Pupils equal, round, and react to light. No icterus, no pallor. NECK: No JVD, no neck masses, no carotid bruits. CARDIOVASCULAR: S1, S2 heard. Tachycardia. Irregular. No murmurs. RESPIRATORY SYSTEM: Normal effort. No accessory muscle use. No wheezing, no crackles. ABDOMEN: Soft, bowel sounds present. Nontender. No distention. CENTRAL NERVOUS SYSTEM: Alert and oriented x1. Moves his extremities. Obeys simple commands. SKIN: He has 2 sacral stage II decubitus ulcers . Healed bilateral heel ulcers. EXTREMITIES: No edema, no erythema. . Hospital Course SEPSIS Met criteria for sepsis per 2001 definition and current CMS guidelines. WBC was 19,000. Pulse was 131. Initial lactate was 8.3. Hemodynamically stable in ED. Blood cultures and urine culture obtained. Received broad spectrum antibiotic coverage with piperacillin / tazobactam + vancomycin. Blood cultures grew Staph aureus with 2 different sensitivity profiles- MRSA + MSSA as well as Enterococcus faecalis. Urine culture grew Enterococcus faecalis. No apparent valvular vegetations per transthoracic echo. Would be ideal to check ANDREWS, but patient at relatively high risk for complications from invasive procedures. ID consulted. Source of sepsis felt most likely to be urinary tract and / or skin. IV vancomycin x 14 days starting 11/17 (date of first negative blood culture) recommended. Discharge on vancomycin 900 mg IV q 12 hours. Check vancomycin trough on 11/27. Stop date = 12/01. Reculture blood and urine if fever recurs. DM / DKA Blood sugar was 335 at time of admission with elevated anion gap and beta- hydroxybutyric acid. Pharmacy consulted for glycemic management. Treated with insulin infusion. Transitioned to SQ insulin. Blood sugars continue to fluctuate due to very will oral intake and intermittent refusal insulin. Discharge on Lantus 10 units BID + Humalog sliding scale. Will need ongoing adjustment of insulin regimen. ACUTE KIDNEY INJURY Serum creatinine on admission was 1.7. Acute kidney injury probably due to sepsis and volume depletion. Creatinine 11/22 was 1.2. CORONARY ARTERY DISEASE No anginal symptoms. Continue aspirin and metoprolol. HYPERTENSION Continue metoprolol. VTE PROPHYLAXIS SQ heparin. DISPOSITION Returning to [facility] under the care of Dr. Sanchez. . Total time spent on discharge = 45 min. This includes examination of the patient, discharge planning, medication reconciliation, and communication with other providers. . Discharge Instructions Date of Service Nov 23, 2016. Admission Reason for Admission: DKA . Discharge Discharge Diagnosis / Problem: sepsis, bacteremia, DKA Discharge Goals Goal(s): Decrease discomfort, Improve disease control Activity Recommendations Activity Level: Assistance Required Therapies: Physical Therapy, Occupational Therapy . Additional Information Patient informed of condition: Yes Advance Directives: Yes DNR: Yes Level of Care: Skilled Communicable Disease: No Prognosis: Improving Wiley Catheter: No Current Hospital Diet Patient's current hospital diet: Diabetes Type 2 Diet Discharge Diet Recommended Diet: AHA Diet (Heart Healthy), Diabetes Type 2 Diet Diet Texture: Dental Soft (bite-sized) Pending Studies Studies pending at discharge: no Physician Orders On Transfer Special Precautions: aspiration precautions fall precautions skin precautions contact precautions- MRSA . IV Therapy: IV vancomycin as ordered. Routine PICC maintenance. DC PICC after course of vancomycin completed. . Vital Signs: routine . Weigh: routine . Additional Orders: fingerstick blood sugars AC + HS Humalog scale AC: < 81 0 units 81-120 4 units 121-160 8 units 161-200 12 units 201-240 16 units 241-280 20 units 281-320 24 units > 320 28 units CBC, basic metabolic profile, trough vancomycin level 11/27/16 reposition q 2 hours waffle boots or other heel protectors Thank you for receiving this patient in transfer. Please call if you have any questions. Golden Harris . Laboratory Results Hemoglobin A1c Test 11/16/16 03:55 Range/Units Estimated Average Glucose 200 mg/dl Hemoglobin A1c 8.6 H 4.5-5.6 % Medical Emergencies . Who to Call and When: Medical Emergencies: If at any time you feel your situation is an emergency, please call 911 immediately. . Non-Emergent Contact Non-Emergency issues call your: Primary Care Provider, Hospital Doctor . . "Provider Documentation" section prepared by Golden Harris. . Core Measure Problem Core Measures: None .
[2016-11-23] MEDS ORDERED: INSULIN GLARGINE SOLOSTAR 100 UNITS/ML 3 ML PEN SC SCH (21:00)
== END 2016-11-23 19:13 | DRG 871 ==
LOC: EDBD 08:31 → C.EDA 08:32 → C.MSICU 11:00 → ENRESERV 12:25 → EDBEDREQ 17:17 → ENRESERV 17:18 → CANRESERV 17:18 → EDBEDREQ 17:19 → C.MS2W 17:34 → EDBEDREQ 18:25 → EDBEDREQSVC 18:25 → EDBEDREQTM 18:25 → ENRESERV 18:46
PROVIDERS: ADMIT Internal Medicine; ATTEND Hospitalist
PROC: 02HV33Z Insertion of Infusion Device into Superior Vena Cava, Percutaneous Approach (ICD-10-PCS; principal; 2016-11-22)
DX: A41.9 Sepsis, unspecified organism (principal); E13.10 Other specified diabetes mellitus with ketoacidosis without coma; G93.41 Metabolic encephalopathy; N17.9 Acute kidney failure, unspecified; N39.0 Urinary tract infection, site not specified; E11.40 Type 2 diabetes mellitus with diabetic neuropathy, unspecified; E78.5 Hyperlipidemia, unspecified; K21.9 Gastro-esophageal reflux disease without esophagitis; I10 Essential (primary) hypertension; I25.10 Atherosclerotic heart disease of native coronary artery without angina pectoris; F32.9 Major depressive disorder, single episode, unspecified; B95.2 Enterococcus as the cause of diseases classified elsewhere; B95.62 Methicillin resistant Staphylococcus aureus infection as the cause of diseases classified elsewhere; B95.61 Methicillin susceptible Staphylococcus aureus infection as the cause of diseases classified elsewhere; H35.30 Unspecified macular degeneration; F03.90 Unspecified dementia, unspecified severity, without behavioral disturbance, psychotic disturbance, mood disturbance, and anxiety; D64.9 Anemia, unspecified; L89.152 Pressure ulcer of sacral region, stage 2; H54.42 Blindness, left eye, normal vision right eye; Z79.4 Long term (current) use of insulin; Z79.899 Other long term (current) drug therapy; Z79.82 Long term (current) use of aspirin; Z87.891 Personal history of nicotine dependence; Z86.73 Personal history of transient ischemic attack (TIA), and cerebral infarction without residual deficits; Z66 Do not resuscitate; Z74.01 Bed confinement status